=== PATIENT | female | born 1955 | race Caucasian/White ===

== ENCOUNTER 2018-07-20 12:23 | Observation (INO) | payer OTHER ==
--- OUTSIDE RECORDS SUMMARY | 2018-07-20 12:44 | XMS REPORT | Clinical Summary ---
:1955 Author Organization [facility] [employer] Address [address] [place] [address] Care Team Providers Name Role Phone Asked, No Pcp Primary Care Provider Unavailable Allergies Active Allergy Reactions Severity Noted Date Comments Codeine GI Intolerance 09/13/2014 Hydrocodone 09/13/2014 Other reaction(s): Nausea/Vomiting Morphine GI Intolerance 09/13/2014 Penicillins 05/19/2016 Medications Medication Sig Dispensed Refills Start Date End Date Status umeclidinium-krystina Inhale daily. 0 Active nterol (ANORO ELLIPTA) 62.5-25 mcg/actuation blister with device mometasone 2 sprays into 0 Active (NASONEX) 50 each nostril mcg/actuation daily. nasal spray albuterol Take 2.5 mg by 0 Active (ACCUNEB) 2.5 mg nebulization /3 mL (0.083 %) every 6 (six) nebulizer hours as needed solution for wheezing. montelukast Chew 5 mg 0 Active (SINGULAIR) 5 MG nightly. chewable tablet metoprolol Take 1.5 tablets 90 tablet 3 12/31/2017 Active succinate XL (75 mg total) by (TOPROL-XL) 50 mg mouth daily. 24 hr tabletIndications : Chronic Heart Failure furosemide Take 0.5 tablets 180 tablet 0 12/31/2017 Active (LASIX) 40 mg (20 mg total) by 9 tabletIndications mouth daily. : Edema promethazine Take by mouth 4 0 Active (PHENERGAN) 6.25 (four) times a mg/5 mL syrup day as needed for nausea or vomiting. levoFLOXacin Take 500 mg by 0 Active (LEVAQUIN) 500 MG mouth daily. tablet aspirin (ECOTRIN) Take 81 mg by 0 Active 81 MG enteric mouth daily. coated tablet topiramate Take 25 mg by 0 Active (TOPAMAX) 25 MG mouth 2 (two) tablet times a day. lisinopril Take 1 tablet (5 90 tablet 3 02/01/2018 Active (PRINIVIL,ZESTRIL mg total) by 9 ) 5 mg mouth daily. tabletIndications : Acute congestive heart failure, unspecified congestive heart failure type KLOR-CON 10 10 TAKE 1 TABLET (10 90 tablet 2 06/27/2018 Active mEq CR tablet MEQ TOTAL) BY MOUTH DAILY. valsartan Take 1 tablet (40 90 tablet 3 03/22/2017 Discontinued (DIOVAN) 40 MG mg total) by 8 tablet mouth daily. furosemide Take 1 tablet (40 90 tablet 3 03/22/2017 Discontinued (LASIX) 40 mg mg total) by 8 tablet mouth daily. potassium Take 1 tablet (10 90 tablet 3 03/22/2017 Discontinued chloride mEq total) by 9 (KLOR-CON) 10 MEQ mouth daily. CR tablet metoprolol TAKE 1 TABLET BY 90 tablet 3 04/05/2017 Discontinued succinate XL MOUTH EVERY DAY 8 (TOPROL-XL) 50 mg FOR 90 DAYS 24 hr tablet valsartan TAKE 1 TABLET BY 90 tablet 1 04/26/2017 Discontinued (DIOVAN) 80 MG MOUTH EVERY DAY 8 tablet Active Problems Problem Noted Date Cardiomyopathy 05/19/2016 Congestive heart failure 05/19/2016 Dyspnea on exertion 05/19/2016 Acute congestive heart failure 05/19/2016 Encounters Date Type Specialty Care Team Description 06/24/2018 Refill Cardiology Alejo Dempsey MD Med Refill 06/22/2018 Telephone Cardiology Faith Lima, RN Labs Only 02/01/2018 Office Visit Cardiology Alejo Dempsey MD Acute congestive heart failure, unspecified congestive heart failure type (Primary Dx) 12/31/2017 Hospital Encounter Radiology Waldo Winston Acute on chronic [place], [employer] combined systolic and diastolic congestive heart failure 12/31/2017 Office Visit Cardiology Waldo Winston Acute on chronic [employer], [employer] combined systolic and diastolic congestive heart failure (Primary Dx) 12/31/2017 Hospital Encounter Transplant Gaetano Cervantes Chronic combined systolic and diastolic congestive heart failure 12/29/2017 Orders Only Transplant Waldo Winston Chronic combined [employer], [employer] systolic and diastolic congestive heart failure (Primary Dx) after 07/19/2017 Family History Medical History Relation Name Comments Coronary artery disease Father Other Father "coronary arteriosclerosis" Hypertension Mother Hypertension Sister Relation Name Status Comments Father Mother Sister Social History Tobacco Use Types Packs/Day Years Used Date Former Smoker Smokeless Tobacco: Never Used Alcohol Use Drinks/Week oz/Week Comments Yes "occasional" Sex Assigned at Date Recorded Not on file Job Start Date Occupation Industry Not on file Not on file Not on file Travel History Travel Start Travel End No recent travel history available. Last Filed Vital Signs Vital Sign Reading Time Taken Blood Pressure 165/74 02/01/2018 2:32 PM CDT Pulse 87 02/01/2018 2:32 PM CDT Temperature 36.6 C (97.8 F) 12/31/2017 10:53 AM CDT Respiratory Rate 18 02/01/2018 2:32 PM CDT Oxygen Saturation 95% 02/01/2018 2:32 PM CDT Inhaled Oxygen Concentration - - Weight 70.3 kg (155 lb) 02/01/2018 2:32 PM CDT Height 162.6 cm (5' 4") 02/01/2018 2:32 PM CDT Body Mass Index 26.61 02/01/2018 2:32 PM CDT Plan of Treatment Health Maintenance Due Date Last Done Comments CERVICAL CANCER SCREENING 02/20/1976 BREAST CANCER SCREENING 2005 COLON CANCER SCREENING 2005 SHINGLES VACCINES (1 of 2) 2005 INFLUENZA VACCINE 01/19/2018 Procedures Procedure Name Priority Date/Time Associated Comments Diagnosis ECHOCARDIOGRAM 2D Routine 12/31/2017 3:10 Results for this COMPLETE W MMODE PM CDT procedure are in SPECTRAL COLOR DOPPLER the results (87204) section. XR CHEST 2 VW Routine 12/31/2017 2:04 Acute on chronic Results for this PM CDT combined systolic procedure are in and diastolic the results congestive heart section. failure ZZESTIMATED GFR STAT 12/31/2017 10:40 Results for this AM CDT procedure are in the results section. B NATRIURETIC PEPTIDE STAT 12/31/2017 10:40 Chronic combined Results for this AM CDT systolic and procedure are in diastolic the results congestive heart section. failure COMPREHENSIVE METABOLIC STAT 12/31/2017 10:40 Chronic combined Results for this PANEL AM CDT systolic and procedure are in diastolic the results congestive heart section. failure after 07/19/2017 Results Echocardiogram complete w contrast and 3D if needed (12/31/2017 3:10 PM CDT) Narrative Performed At [facility] Echocardiography Report Pat.Name:GAVIN GUZMAN Pat.ID:[id number] .Date: 12/31/2017 Refer.MD:ALEJO DEMPSEY MD Exam Time: 2:43:00 PMStudy Type:Routine Echo Height:64inWeight: 153lb BSA: 1.75 m2 DOBAge:1955,62Y Sex: FEMALEBP:146/72 HR:100 bpm Sonogrphr: Leticia Mahajan RDCS, RVS Pat. Stat.:[facility] TapeVol: [facility], ICD - 9: R06.02 Study Status:Final Echo Event ID:[id number] Order ID:[id number] Reason for Study:Dyspnea on Exertion, COPD, Combined Systolic and Diastolic Congestive Heart Failure History / Clinical:Heart Failulre unpsecified Procedures:2D Echo, Colorflow Doppler Race: SUMMARY: LV size is normal. LV EF is mild to moderately depressed. FINDINGS: LV: LV size is normal. LV EF is mild to moderately depressed. Overallwall motion is mildly hypokinetic. Septal motion is paradoxicalsecondary to LBBB or conduction abnormality. EstimatedEF is 40-44%. RV: RV size is normal. RV systolic function is lower limits of normal. LA: LA size is normal. RA: RA size is normal. AO: Aortic root diameter is normal. JIN: No pericardial effusion. AV: No structural AV abnormalities noted. MV: Mild thickening and calcification of mitral leaflets. Severe mitralannular calcification. PV: No structural PV abnormalities noted. A trace of pulmonic regurgitation. TV: No structural TV abnormalities noted. Mohr: Diastolic dysfunction Grade I (Mild): Impaired relaxation withnormal LV filling pressures. Other:Insufficient TR jet to estimate PA systolic pressure. MEASUREMENTS: 2D Parasternal Long [place] LA Ds3.5 cmLVPWd0.9 cm LVOT 1.9 cmAo An2.1 cm LVIDd4.4 cmIndex2.5 cm/m Ao Rtd 2.6 cm Index1.5 cm/m LVIDs3.7 cmLV Gwte592.6 g(87-129) LV%fs 15.9 % LVM Index 57.5 g/m2 IVSd 0.6 cmRWT0.4 LA Volume LA Vol36.3 txZqomq30.8 ml/m LA Sng Plane LA Area 15 cm2(8.8-23.4) LA Vol39.6 ml Index22.6 ml/m LA LngAx 4.5 cm EF Biplane YJU554.5 mlSV59.1 ml ESV 89.4 mlEF39.8 % DOPPLER MV For Flow/Valve Assess MV pkVel 132.9 cm/sMV Dec T 255 msec MV pkPG7.1 mmHgMV TVI26.9 cm MV Mean G2.6 mmHgMV Area P1/2t2.9 cm2(4-6) Signed 01/04/2018 10:44 AM Stewart Carrasco M.D. Procedure Note Interface, Radiology Results In - 01/04/2018 10:45 AM CDT [facility] Echocardiography Report Pat.Name: CASEGAVIN.ID: [id number] St.Date: 12/31/2017 Refer.MD: ALEJO DEMPSEY MD Exam Time: 2:43:00 PM Study Type:Routine Echo Height: 64in Weight: 153lb BSA: 1.75 m2 Age: 9 1955,62Y Sex: FEMALE BP: 146/72 HR: 100 bpm Sonogrphr: Leticia Mahajan RDCS, RVS Pat. Stat.:Outpatient Room: [address] Vol: [facility], ICD - 9: R06.02 Study Status:Final Echo Event ID:[id number] Order ID: [id number] Reason for Study:Dyspnea on Exertion, COPD, Combined Systolic and Diastolic Congestive Heart Failure History / Clinical:Heart Failulre unpsecified Procedures:2D Echo, Colorflow Doppler Race: SUMMARY: LV size is normal. LV EF is mild to moderately depressed. FINDINGS: LV: LV size is normal. LV EF is mild to moderately depressed. Overall wall motion is mildly hypokinetic. Septal motion is paradoxical secondary to LBBB or conduction abnormality. Estimated EF is 40-44%. RV: RV size is normal. RV systolic function is lower limits of normal. LA: LA size is normal. RA: RA size is normal. AO: Aortic root diameter is normal. JIN: No pericardial effusion. AV: No structural AV abnormalities noted. MV: Mild thickening and calcification of mitral leaflets. Severe mitral annular calcification. PV: No structural PV abnormalities noted. A trace of pulmonic regurgitation. TV: No structural TV abnormalities noted. Mohr: Diastolic dysfunction Grade I (Mild): Impaired relaxation with normal LV filling pressures. Other: Insufficient TR jet to estimate PA systolic pressure. MEASUREMENTS: 2D Parasternal Long [place] LA Ds 3.5 cm LVPWd 0.9 cm LVOT 1.9 cm Ao An 2.1 cm LVIDd 4.4 cm Index 2.5 cm/m Ao Rtd 2.6 cm Index 1.5 cm/m LVIDs 3.7 cm LV Mass 100.6 g (87-129) LV%fs 15.9 % LVM Index 57.5 g/m2 IVSd 0.6 cm RWT 0.4 LA Volume LA Vol 36.3 ml Index 20.8 ml/m LA Sng Plane LA Area 15 cm2 (8.8-23.4) LA Vol 39.6 ml Index 22.6 ml/m LA LngAx 4.5 cm EF Biplane EDV 148.5 ml SV 59.1 ml ESV 89.4 ml EF 39.8 % DOPPLER MV For Flow/Valve Assess MV pkVel 132.9 cm/s MV Dec T 255 msec MV pkPG 7.1 mmHg MV TVI 26.9 cm MV Mean G 2.6 mmHg MV Area P1/2t 2.9 cm2 (4-6) Signed 01/04/2018 10:44 AM Stewart Carrasco M.D. Performing Organization Address City/State/Zipcode Phone Number [facility] [phone] [place] [address] XR Chest 2 Vw (12/31/2017 2:04 PM CDT) Narrative Performed At EXAMINATION:XR CHEST 2 VW [facility]IANT CLINICAL HISTORY:I50.43 Acute on chronic combined systolic (congestive) and diastolic (congestive) heart failure, Cardiomyopathy COMPARISON:None. IMPRESSION: 1.Lungs are clear. 2.Mediastinal contours and cardiac silhouette are unremarkable. 3.No acute osseous abnormality. 4.Right chest surgical clips. [id number] Procedure Note Interface, Radiology Results Incoming - 12/31/2017 2:13 PM CDT EXAMINATION: XR CHEST 2 VW CLINICAL HISTORY: I50.43 Acute on chronic combined systolic (congestive) and diastolic (congestive) heart failure, Cardiomyopathy COMPARISON: None. IMPRESSION: 1. Lungs are clear. 2. Mediastinal contours and cardiac silhouette are unremarkable. 3. No acute osseous abnormality. 4. Right chest surgical clips. [id number] Performing Organization Address [facility]/Zipcode Phone Number [facility] [address] [place] [address] Estimated GFR (12/31/2017 10:40 AM CDT) GFR Non Af Amer >90 mL/min/1.73 m2 [facility] DEPARTMENT OF PATHOLOGY AND GENOMIC MEDICINE GFR Af Amer >90 mL/min/1.73 m2 [facility] DEPARTMENT OF Comment: PATHOLOGY AND GENOMIC Chronic kidney disease: <60 mL/min/1.73m2 MEDICINE Kidney failure: <15 mL/min/1.73m2 The estimated GFR is calculated from the IDMS-traceable Modification of Diet in Renal Disease Equation. The accuracy of the calculation is poor when the creatinine is normal. Calculated values >90 mL/min/1.73m2 are not reported. This equation has not been validated in children (<18 years), women, the elderly (>70 years), or ethnic groups other than Caucasians and Americans. Specimen Plasma specimen Performing Organization Address City/[facility] Phone Number [facility] DEPARTMENT OF PATHOLOGY AND [address] [place] [phone] [facility] B natriuretic peptide (12/31/2017 10:40 AM CDT) BNP 24 0 - 100 pg/mL [facility] OF PATHOLOGY AND GENOMIC MEDICINE Specimen Blood Performing Organization Address [facility] Mex[facility] Phone Number [facility] DEPARTMENT OF PATHOLOGY AND [address] [place] [phone] [facility] Comprehensive metabolic panel (12/31/2017 10:40 AM CDT) Sodium 141 135 - 148 mEq/L [facility]PART[facility] OF PATHOLOGY AND GENOMIC MEDICINE Potassium 4.2 3.5 - 5.0 mEq/L [facility] OF PATHOLOGY AND GENOMIC MEDICINE Chloride 102 98 - 112 mEq/L [facility] OF PATHOLOGY AND GENOMIC MEDICINE CO2 27 24 - 31 mEq/L [facility] OF PATHOLOGY AND GENOMIC MEDICINE Anion gap 12@ANIO 7 - 15 mEq/L [facility] DEPART[facility] OF PATHOLOGY AND GENOMIC MEDICINE BUN 11 8 - 23 mg/dL [facility] DEPART[facility] OF PATHOLOGY AND GENOMIC MEDICINE Creatinine 0.6 0.5 - 0.9 mg/dL [facility] OF PATHOLOGY AND GENOMIC MEDICINE Glucose 89 65 - 99 mg/dL [facility]PART[facility] OF PATHOLOGY AND GENOMIC MEDICINE Calcium 9.4 8.8 - 10.2 mg/dL [facility] DEPARTMENT OF PATHOLOGY AND GENOMIC MEDICINE Protein 7.1 6.3 - 8.3 g/dL [facility] DEPARTMENT OF Comment: PATHOLOGY AND GENOMIC Maidens 4.6-7.0 g/dL MEDICINE 1 week 4.4-7.6 g/dL 7 months-1year5.1-7.3 g/dL 1-2 years5.6-7.5 g/dL >3 years6.0-8.0 g/dL 18-150 6.3-8.3 g/dL Albumin 3.7 3.5 - 5.0 g/dL [facility] OF PATHOLOGY AND GENOMIC MEDICINE A/G ratio 1.1 0.7 - 3.8 [facility]PART[facility] OF PATHOLOGY AND GENOMIC MEDICINE Alkaline phosphatase 98 35 - 104 U/L [facility] DEPARTMENT OF PATHOLOGY AND GENOMIC MEDICINE AST 19 10 - 35 U/L [facility] DEPARTMENT OF PATHOLOGY AND GENOMIC MEDICINE ALT 23 5 - 50 U/L [facility] OF PATHOLOGY AND GENOMIC MEDICINE Total bilirubin 0.3 0.0 - 1.2 mg/dL [facility] DEPARTMENT OF PATHOLOGY AND GENOMIC MEDICINE Specimen Plasma specimen Performing Organization Address City/State/[facility] Mex[facility]ocode Phone Number [facility] DEPARTMENT OF PATHOLOGY AND [address] [place] [address] [facility] after 07/19/2017 Insurance Payer Benefit Plan / Group Subscriber ID Type Phone Address [employer] AET[employer] PPO OPEN CHOICE xxxxxxxxx PPO Advance Directives Patient has advance care planning documents on file. For more information, please contact:José Miguel Marinelli[address] [place] [id number]
--- OUTSIDE RECORDS SUMMARY | 2018-07-20 12:45 | XMS REPORT | Continuity of Care Document ---
:1955 Author Organization Interface Problems Problem Status Onset Classification Date Comments Source Date Reported ACUTE COMBINED Active 04/27/20 [facility] SYSTOLIC/DISTOL 18 [place] IC HEART F HEART FAILURE, Active 04/27/20 [facility] COPD 18 [place] Abdominal pain, Active 06/29/19 Finding 06/29/[address] [facility] left lower 18 [facility] [place] Back pain Active 06/29/19 Finding 06/29/[address] [facility] [place] COPD with acute Active 06/29/19 Finding 06/29/[address] [facility] bronchitis 18 [facility] [place] Right lower Active 06/29/19 Finding 06/29/[address] [facility] quadrant 18 [facility] abdominal [place] tenderness Left lower Active 06/29/19 Finding 06/29/[address] [facility] quadrant pain 18 [facility] [place] Acute Active 06/29/19 Finding 06/29/[address] [facility] bronchitis with 18 [facility] chronic [place] obstructive pulmonary disease Cough Active 12/05/19 Finding 06/29/[address] [facility] 16 [facility] [place] Vaginal vault Active 09/18/19 Finding 06/29/[address] [facility] prolapse 15 [facility] [place] Cystocele Active 09/18/19 Finding 06/29/[address] [facility] [place] Rectocele Active 09/18/19 Finding 06/29/[address] [facility] [place] Dysphagia Inactive Finding 06/29/[address] [facility] [place] Abnormal weight Inactive Finding 06/29/[address] [facility] loss [facility] [place] COPD Active Finding 06/29/[address] [facility] exacerbation [facility] [place] ACUTE COMBINED Active [facility] SYSTOLIC AND [place] DIASTOLIC (C ACUTE SYSTOLIC Active [facility] (CONGESTIVE) [place] HEART FAILUR Medications Medication Details Route Status Patient Ordering Order Source Instructions Provider Date Acetaminophen EVERY [address] [facility] HOURS 018 [facility] NEEDED PRN [place] For Headache Or Fever Albuterol FOUR TIMES Active [facility] Sulfate DAILY [facility]18 [facility] [place] Aspirin DAILY Active [facility] [place] Budesonide/Formo TWICE DAILY Active [facility] terol Fumarate [facility]18 [facility] [place] Potassium DAILY PRN [facility] Chloride For taken [facility]18 [facility] with lasix [place] Valsartan DAILY Active [facility] [place] Furosemide NEEDED Active [facility] PRN For 016 [facility] edema [place] Lisinopril DAILY Active [facility] [place] Metoprolol DAILY Active [facility] Succinate 016 [facility] [place] Losartan DAILY Active [facility] Potassium 013 [facility] [place] Allergies, Adverse Reactions, Alerts Substance Category Reaction Severity Reaction Status Date Comments Source type Reported Penicillins Itching/H Severe Allergy to Active [facility]/Rash Substance 5 [facility] [place] codeine VOMITING Allergy to Active [facility] Substance 5 [facility] [place] hydrocodone Nausea/Vo Allergy to Active [facility] m[facility] Substance 5 [facility] [place] morphine VOMITING Allergy to Active [facility] Substance 5 [facility] [place] Immunizations Immunization Date Given Site Status Last Comments Source Updated Pneumovax 05/04/[address] 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 Lungs: Hyperinflated lungs. No focal consolidation, effusion, or pneumothorax. Mediastinum: The cardiac silhouette is mildly enlarged. Midline trachea. Bones and soft tissues: No acute abnormalities. IMPRESSION: No acute cardiopulmonary abnormalities. SL: [id number] Laboratory Sodium Level 139 mEq/L 135 - 145 06/[address] [facility] [address] Studies /2018 [facility] [place] Laboratory Potassium 4.3 mEq/L 3.6 - 5.0 06/[address] [facility] [address] Studies Level /2018 [facility] [place] Laboratory Magnesium 2.0 mg/dL 1.8 - 2.5 06/[address] [facility] [address] Studies Level /2017 [facility] [place] Laboratory Glucose 95 mg/dL 65 - 120 06/29 [facility]3]. Studies Level /2017 [facility] [place] Laboratory Estimat null 90 06/29 [facility]3]. Studies Glomerular /2017 [facility] Filtration [place] Rate Laboratory Creatinine 0.58 mg/dL 0.44 - 06/29 [facility]3]. Studies 1.00 [facility] [place] Laboratory Chloride 106 mEq/L 101 - 111 06/29 [facility]3]. Studies Level /2017 [facility] [place] Laboratory Carbon 28 mEq/L 21 - 31 06/29 [facility]3]. Studies Dioxide /2017 [facility] Level [place] Laboratory Calcium 9.0 mg/dL 8.5 - 10.5 06/29 [facility]3]. Studies Level /2018 [facility] [place] Laboratory Blood Urea 8 mg/dL 6 - 20 06/29 [facility]3]. Studies Nitrogen /2017 [facility] [place] Laboratory White Blood 4.1 K/uL 4.3 - 10.9 06/29 [facility]3]. Studies Count /2017 [facility] [place] Laboratory Red Cell 13.3 % 12.1 - 06/29 [facility]3]. Studies Distribution 15.2 /2017 [facility] Width [place] Laboratory Red Blood 4.62 M/uL 3.86 - 06/29 [facility]3]. Studies Count 4.86 /2017 [facility] [place] Laboratory Platelet 157 K/uL 152 - 406 06/29 [facility]3]. Studies Count /2017 [facility] [place] Laboratory Neutrophils 39.9 % 41.7 - 06/[address] [facility] [address] Studies % 73.7 /2017 [facility] [place] Laboratory Monocytes % 9.6 % 3.3 - 12.3 06/[address] [facility] [address] Studies /2018 [facility] [place] Laboratory Mean 10.3 fL 7.6 - 11.3 06/[address] [facility] [address] Studies Platelet /2018 [facility] Volume [place] Laboratory Mean 93.2 fL 80 - 100 06/29 St[facility] Studies Corpuscular /2017 [facility] Volume [place] Laboratory Mean 32.6 g/dL 32.0 - 06/29 St[facility] Studies Corpuscular 36.0 [facility] Hemoglobin [place] Concent Laboratory Mean 30.4 pg 27.0 - 06/29 St[facility] Studies Corpuscular 35.0 [facility] Hemoglobin [place] Laboratory Lymphocytes 46.5 % 15.3 - 06/[address] [facility] [address] Studies % 44.8 /2017 [facility] [place] Laboratory Hemoglobin 14.0 g/dL 12.0 - 06/[address] [facility] [address] Studies 15.0 [facility] [place] Laboratory Hematocrit 43.0 % 36.0 - 06/[address] [facility] [address] Studies 45.0 [facility] [place] Laboratory Eosinophils 3.2 % 0 - 4.4 06/[address] [facility] [address] Studies % /2017 [facility] [place] Laboratory Basophils % 0.8 % 0 - 1.3 06/[address] [facility] [address] Studies [facility] [place] Laboratory Absolute 1.6 K/uL 1.8 - 8.0 06/[address] [facility] [address] Studies Neutrophil [facility] [place] Laboratory Absolute 0.4 K/uL 0.1 - 1.3 06/[address] [facility] [address] Studies Monocytes [facility] - (CBC) [place] Laboratory Absolute 1.9 K/uL 0.7 - 4.9 06/[address] [facility] [address] Studies Lymphocytes [facility] - (CBC) [place] Laboratory Absolute 0.1 K/uL 0 - 0.5 06/[address] [facility] [address] Studies Eosinophils [facility] - (CBC) [place] Laboratory Absolute 0.0 K/uL 0 - 0.5 06/[address] [facility] [address] Studies Basophils [facility] - (CBC) [place] Laboratory Urine pH 5.5 06/[address] [facility] [address] Studies [facility] [place] Laboratory Urine WBC Urine WBC 06/[address] [facility] [address] Studies [facility] [place] Laboratory Urine 0.2 mg/dL 06/[address] [facility] [address] Studies Urobilinogen /2017 [facility] [place] Laboratory Urine Total Urine 06/[address] [facility] [address] Studies Protein Total /2017 [facility] Protein [place] Laboratory Urine Urine 06/28 [facility]3]. Studies Squamous Squamous /2017 [facility] Epithelial Epithelial [place] Cells Cells Laboratory Urine 1.025 06/28 [facility]3]. Studies Specific /2017 [facility] [place] Laboratory Urine RBC null 06/28 St. Studies /2017 [facility] [place] Laboratory Urine Urine 06/28 [facility] Studies Nitrite Nitrite /2017 [facility] [place] Laboratory Urine Mucus Urine 06/28 [facility]3]. Studies Mucus /2017 [facility] [place] Laboratory Urine Urine 06/28 [facility]3]. Studies Leukocyte Leukocyte /2017 [facility] Esterase Esterase [place] Laboratory Urine Urine 06/28 [facility]3]. Studies Ketones Ketones /2017 [facility] [place] Laboratory Urine Urine 06/28 [facility] Studies Glucose Glucose /2017 [facility] [place] Laboratory Urine Urine 06/28 [facility] Studies Culture Culture /2017 [facility] Reflexed Reflexed [place] Laboratory Urine Color Urine 06/28 [facility] Studies Color /2017 [facility] [place] Laboratory Urine Blood Urine 06/28 [facility]3]. Studies Blood /2017 [facility] [place] Laboratory Urine Urine 06/28 [facility] Studies Bilirubin Bilirubin /2017 [facility] [place] Laboratory Urine null 06/28 [facility]3]. Studies Bacteria /2017 [facility] [place] Laboratory Urine Urine 06/28 [facility] Studies Appearance Appearance /2017 [facility] [place] Laboratory Vitamin B12 507 pg/ml 180 - 914 06/28 [facility] Studies Level /2017 [facility] [place] Laboratory Thyroid 1.03 0.34 - 06/28 [facility] Studies Stimulating uIU/mL 5.60 [facility] Hormone [place] (TSH) Laboratory Prothrombin 11.4 9.5 - 12.5 06/28 [facility] Studies Time SECONDS /2017 [facility] [place] Laboratory INR 0.97 06/28 [facility] Studies Internationa /2017 [facility] l Normalized [place] Ratio Laboratory Activated 21.9 24.3 - 06/28 [facility] Studies Partial SECONDS 36.9 [facility] Thromboplast [place] Time Laboratory Total 0.6 mg/dL 0.3 - 1.2 06/28 [facility] Studies Bilirubin /2017 [facility] [place] Laboratory Serum Total 6.8 g/dL 6.0 - 8.3 06/[address] [facility] [address] Studies Protein /2018 [facility] [place] Laboratory Phosphorus 3.3 mg/dL 2.5 - 4.3 06/[address] [facility] [address] Studies Level /2017 [facility] [place] Laboratory Globulin 2.8 g/dL 2.3 - 3.5 06/[address] [facility] [address] Studies /2017 [facility] [place] Laboratory Direct 0.1 mg/dL 0 - 0.2 06/28 [facility]3]. Studies Bilirubin /2017 [facility] [place] Laboratory Aspartate 22 IU/L 10 - 42 06/28 [facility]3]. Studies Amino Transf /2017 [facility] - (AST/SGOT) [place] Laboratory Alkaline 73 IU/L 42 - 121 06/28 [facility]3]. Studies Phosphatase /2017 [facility] [place] Laboratory Albumin/Glob 1.4 1.1 - 1.8 06/28 [facility]3]. Studies ulin Ratio /2017 [facility] [place] Laboratory Albumin 4.0 g/dL 3.2 - 5.5 06/28 [facility]3]. Studies [facility] [place] [facility] Alanine 20 IU/L 10 - 60 06/28 [facility]3]. Studies Aminotransfe /2017 [facility] - rase [place] (ALT/SGPT) Vital Signs Vital Sign Value Date Comments Source Temperature Oral (F) 98.9 F 06/29/[address] [facility] [address] Yashira Ayersuday Heart Rate 87 06/29/[address] [facility] [address] Yashira [place] Respitory Rate 18 06/29/[address] [facility] [address] Yashira [place] Systolic (mm Hg) 114 06/29/[address] [facility] [address] Yashira [place] Diastolic (mm Hg) 59 06/29/[address] [facility] [address] Yashira [place]ud[place] Weight 150.40 06/29/[address] [facility] [address] Yashira Ayers Height 64 06/28/[address] [facility] [address] Yashira Ayerst Encounters Location Location Encounter Encounter Reason Attending ADM DC Status Source Details Type Number For Provider Date Date Visit [facility]3]Concepción Discharged [id number] 06/28 06/[address] [facility] [address] [facility] Inpatient /2017 [facility] [place] [facility] [id number] MARIA ANTONIA 03/16 Active [facility] [place] Outpatient [id number] MARIA ANTONIA 04/13 Active [facility] [place] Procedures Procedure Code Date Perfomer Comments Source Anaerobic Blood [id number] 06/28/[address] [facility] [address] Ac - Culture [place] Aerobic Blood [id number] 06/28/[address] [facility] [address] Ac - Culture [place] Gram Stain [id number] 06/28/[address] [facility] [address] Yashira Wiggins [place] Count [id number] 06/28/[address] [facility] [address] [facility] - [place] [id number] 06/28/[address] [facility] [address] Yashira Wiggins Culture & [id number] 06/28/[address] [facility] [address] Ac - Sensitivity [place] Abdomen & Pelvis [id number] 06/28/[address] [facility] [address] Ac - W Contrast [place] Chest Pa And Lat [id number] 06/28/[address] [facility] [address] Ac - (2 Views) Feliciano
[2018-07-20] MEDS ORDERED: ONDANSETRON 4 MG (ODT) TAB PO PRN (14:00)
[2018-07-20] MEDS ORDERED: DIPHENHYDRAMINE 25 MG TAB/CAP PO PRN (14:00)
[2018-07-20] MEDS ORDERED: ACETAMINOPHEN 325 MG TABLET PO PRN (14:00)
[2018-07-20] MEDS ORDERED: LOPERAMIDE HCL 2 MG CAPSULE PO PRN (14:00)
[2018-07-20] MEDS ORDERED: ONDANSETRON 4 MG/2 ML VIAL IV PRN (14:00)
[2018-07-20] MEDS ORDERED: POLYETHYL GLY 3350 17 GM/DOSE PO PRN (14:00)
[2018-07-20] MEDS ORDERED: NACHLORIDE 0.45% 1,000 ML IV SCH (14:00)
[2018-07-20 14:39] LABS: Hematocrit 44.1 % (36.0-45.0); Lymphocytes % 39.6 % (15.3-44.8); MPV 9.5 fL (7.6-11.3); RBC Red Blood Cell Count 4.72 M/uL (3.86-4.86)
[2018-07-20 14:40] LABS: Absolute Lymphocytes (CBC) 1.7 K/uL (0.7-4.9); Absolute Monocytes 0.4 K/uL (0.1-1.3); Absolute Neutrophil 2.2 K/uL (1.8-8.0); Basophils % 0.7 % (0-1.3); Eosinophils % 1.9 % (0-4.4); Monocytes % 8.3 % (3.3-12.3)
[2018-07-20 14:43] LABS: Protime INR 0.92
[2018-07-20 14:47] VITALS: BMI 24.6
[2018-07-20] MEDS ORDERED: INFLUENZA VACCINE (for 3y+) 0.5 ML DOSE IMVAC ONE (15:00)
[2018-07-20] MEDS ORDERED: PNEUMOCOCCAL VACCINE 0.5 ML IMVAC ONE (15:00)
[2018-07-20 15:17] LABS: ALT/SGPT 22 U/L (12-78); AST/SGOT 15 U/L (15-37); Albumin 3.4 g/dL (3.4-5.0); Alkaline Phosphatase 104 U/L (45-117); BUN Blood Urea Nitrogen 12 mg/dL (7-18); Bicarbonate 32 mmol/L (21-32); Bilirubin Direct < 0.1 mg/dL (0-0.2); Bilirubin Total 0.3 mg/dL (0.2-1.0); Glucose Level 99 mg/dL (74-106); Magnesium 2.2 mg/dL (1.8-2.4); Phosphorus 3.3 mg/dL (2.5-4.9); Protein, Total 6.9 g/dL (6.4-8.2); Sodium Level 143 mmol/L (136-145)
--- NOTE | 2018-07-20 15:48 | EKG ---
Test Date: 2018-07-20 Test Time: 15:10:07 [employer]: PILY MEASUREMENT RESULTS: Intervals: Rate: 70 DE: 166 QRSD: 86 QT: 400 QTc: 432 [place]: P: 63 DE: 166 QRS: 69 T: 82 INTERPRETIVE STATEMENTS: Normal sinus rhythm Normal ECG Compared to ECG 06/28/2017 12:46:07 No significant changes Electronically Signed On 07-20-18 15:48:16 [employer]ATION TE[employer] by Anupam Martines
--- NOTE | 2018-07-20 19:09 | RAD REPORT ---
EXAM DESCRIPTION: Jocelynn Lynch (2 Views)07/20/2018 6:36 pm CLINICAL HISTORY: Cough COMPARISON: June 2017 FINDINGS: The lungs appear clear of acute infiltrate. The heart is normal size IMPRESSION: No acute abnormalities displayed
--- NOTE | 2018-07-20 19:52 | RAD REPORT ---
EXAM DESCRIPTION: MRI - Lumbar Spine Wo Con - 07/20/2018 7:34 pm CLINICAL HISTORY: Ataxia and numbness COMPARISON: June 2017 TECHNIQUE: Sagittal T1, T2 and STIR weighted sequences were obtained. Axial T1 and T2 sequences were obtained through the lumbar disc levels. FINDINGS: Mild spondylosis L1-2 and L2-3 Disc bulge and osteophytes L3-4. Mild ligamentum flavum and facet hypertrophy. Mild narrowing of the neural foramina bilaterally. Thecal sac is minimally narrowed Disc bulge with annular fissure is present at L4-5. Ligamentum flavum and facet hypertrophy is seen. Thecal sac measures 10 millimeters. Mild to moderate narrowing of the right and mild narrowing left n eural foramina. Lateral recesses are narrowed Small right posterolateral disc herniation L5-S1 narrows the right neural foramina. Facet hypertrophy is present. Small Tarlov cyst is present within the sacral spinal canal IMPRESSION: Small right posterolateral disc herniation L5-S1 Spondylosis L3-4 resulting in mild bilateral foraminal stenosis Spondylosis L4-5 resulting in mild to moderate right and mild left foraminal stenosis
--- NOTE | 2018-07-20 20:33 | RAD REPORT ---
EXAM DESCRIPTION: MRI - Soft Tissue Neck W/Wo - 07/20/2018 8:13 pm CLINICAL HISTORY: Neck pain and dysphagia COMPARISON: None. TECHNIQUE: Axial, sagittal and coronal magnetic resonance imaging of the neck was obtained. Cc 14 cc MultiHance administered intravenously FINDINGS: The pharynx, tongue base, larynx and subglottic trachea appear unremarkable. The parotid, submandibular and thyroid glands appear unremarkable. No lymphadenopathy is seen. No significant abnormal enhancement is visualized IMPRESSION: Unremarkable exam
--- NOTE | 2018-07-20 20:35 | RAD REPORT ---
EXAM DESCRIPTION: MRI - Brain W/Wo Cont - 07/20/2018 8:12 pm CLINICAL HISTORY: Ataxia and numbness COMPARISON: 2016 MRI TECHNIQUE: Axial, sagittal, and coronal magnetic images of the brain were obtained. 14 cc MultiHance administered intravenously FINDINGS: [id number] areas of increased signal are present within periventricular, deep and kraft bcortical white matter mildly progressed from the prior exam. The ventricles are normal in caliber. Diffusion-weighted sequences do not demonstrate evidence of an acute infarction. No abnormal enhancement within the brain is seen. An extra-axial fluid collection is not noted. Fluid within the sinuses/mastoids is not seen IMPRESSION: Mild to moderate areas of increased signal within periventricular, deep and subcortical white matter mildly progressed from the prior exam may be secondary to ischemic changes secondary to small vessel disease. A demyelinating process is another consideration but is probably less likely
[2018-07-21 01:06] VITALS: BP 135/63; TEMP 97.9
[2018-07-21 04:39] LABS: Absolute Lymphocytes (CBC) 2.2 K/uL (0.7-4.9); Absolute Monocytes 0.5 K/uL (0.1-1.3); Absolute Neutrophil 2.5 K/uL (1.8-8.0); Basophils % 0.7 % (0-1.3); Eosinophils % 2.2 % (0-4.4); Hematocrit 39.8 % (36.0-45.0); Lymphocytes % 40.6 % (15.3-44.8); MPV 9.5 fL (7.6-11.3); Monocytes % 9.2 % (3.3-12.3); RBC Red Blood Cell Count 4.29 M/uL (3.86-4.86)
[2018-07-21 05:02] LABS: BUN Blood Urea Nitrogen 13 mg/dL (7-18); Bicarbonate 29 mmol/L (21-32); Glucose Level 94 mg/dL (74-106); Potassium 3.9 mmol/L (3.5-5.1); Sodium Level 141 mmol/L (136-145)
[2018-07-21 08:38] VITALS: O2SAT 95
[2018-07-21] MEDS ORDERED: ENOXAPARIN 40 MG/0.4 ML SQ SCH (09:00)
--- NOTE | 2018-07-21 18:01 | P.DS ---
Admission Date: 07/20/18 Discharge Date: 07/21/18 Disposition: ROUTINE DISCHARGE Discharge Condition: FAIR Brief History of Present Illness: GAVIN HAS SO MANY CHRONIC SYMPOTMS LIKE DIFFUSE SEVERE HEADACHE, UNSTEADY GAIT, ENT DOCTOR WANTED HER TO CHECK FOR THROAT CANCER, SHE HAS DYSPHAGIA FOR THAT SHE GOES TO GI MD. I CHECKED MRI BRAIN WITHOUT AND WITH CONRAST, SOFT TISSUE NECK AND LOWER SPINE. I DID NOT FIND ANY MAJOR FINDINGS. I ASKED IF SHE IS DERPESSED AND SHE SAYS NO. I WILL REFER HER TO [facility] SHE IS NOT HAPPY WITH LOCAL NEUROLOGISTS. Vital Signs/Physical Exam: Temp Pulse Resp BP Pulse Ox 97.9 F 77 17 135/63 97 07/21/18 00:00 07/21/18 00:00 07/21/18 00:00 07/21/18 00:00 07/21/18 00:00 Laboratory Data at Discharge: WBC 5.3 K/uL (4.3-10.9) D 07/21/18 03:37 Hgb 13.2 g/dL (12.0-15.0) 07/21/18 03:37 Hct 39.8 % (36.0-45.0) 07/21/18 03:37 Plt Count 164 K/uL (152-406) 07/21/18 03:37 PT 10.9 SECONDS (9.5-12.5) 07/20/18 14:24 INR 0.92 07/20/18 14:24 APTT 28.1 SECONDS (24.3-36.9) 07/20/18 14:24 Sodium 141 mmol/L (136-145) 07/21/18 03:37 Potassium 3.9 mmol/L (3.5-5.1) 07/21/18 03:37 BUN 13 mg/dL (7-18) 07/21/18 03:37 Creatinine 0.55 mg/dL (0.55-1.3) 07/21/18 03:37 Glucose 94 mg/dL (74-106) 07/21/18 03:37 Phosphorus 3.3 mg/dL (2.5-4.9) 07/20/18 14:24 Magnesium 2.2 mg/dL (1.8-2.4) 07/20/18 14:24 Total Bilirubin 0.3 mg/dL (0.2-1.0) 07/20/18 14:24 AST 15 U/L (15-37) 07/20/18 14:24 ALT 22 U/L (12-78) 07/20/18 14:24 Alkaline Phosphatase 104 U/L (45-117) 07/20/18 14:24 Home Medications: Acetaminophen with Codeine [Acetaminophen-Cod #3 Tablet] 1 each PO Q4HP PRN Albuterol Sulfate [Proair Hfa] 2 puff IH QID 07/20/18 Bumetanide 0.5 mg PO DAILY 07/20/18 Esomeprazole Magnesium 40 mg PO DAILY 07/20/18 Ipratropium [Atrovent 0.03% (21MCG)/[place] Nasal] 2 sprays NS QID 07/20/18 Metoprolol Succinate 1.5 tab PO DAILY 07/20/18 Umeclidinium Brm/Vilanterol Tr [Anoro Ellipta 62.5-25 Mcg INH] 1 each IH DAILY 07/20/18 Diet: Regular Followup: Adam Moses MD [Primary Care Provider] -
== END 2018-07-21 09:50 | disposition home or self-care (01) ==
LOC: 4TH 12:41
PROVIDERS: ADMIT Internal Medicine; ATTEND Internal Medicine
DX: R26.81 Unsteadiness on feet (principal); R13.10 Dysphagia, unspecified; R51 Headache; I10 Essential (primary) hypertension; J44.9 Chronic obstructive pulmonary disease, unspecified; I42.0 Dilated cardiomyopathy; Z88.0 Allergy status to penicillin; Z86.73 Personal history of transient ischemic attack (TIA), and cerebral infarction without residual deficits; Z23 Encounter for immunization
CPT/HCPCS: 36415; 70543; 70553; 71046; 72148; 80048; 80076; 82306; 82607; 83735; 84100; 84443; 85025; 85610; 85730; 90670; 93005; A9577; G0008; G0009; G0378; J1650; Q2035

== ENCOUNTER 2021-09-16 09:00 | Day surgery (SDC) | payer OTHER ==
[2021-09-16] MEDS ORDERED: Ringers Lactate 1,000 ML IV ONE (09:23)
[2021-09-16] MEDS ORDERED: ALBUTEROL 2.5 MG/3 ML NEB SOL ONE (09:56)
[2021-09-16] MEDS ORDERED: SCOPOLAMINE HYDROBROMIDE PATCH TD ONE (09:56)
[2021-09-16] MEDS ORDERED: LIDOCAINE 1% MPF 5 ML VIAL ONE (10:26)
[2021-09-16] MEDS ORDERED: propofoL 200 MG/20 ML VIAL IV ONE (10:26)
[2021-09-16 12:33] VITALS: TEMP 98.3
[2021-09-16 12:36] VITALS: BP 137/60; O2SAT 94
--- NOTE | 2021-09-17 01:37 | OP ---
Surgeon: Frank Mayorga MD Procedure Performed: Esophagogastroduodenoscopy. Indication For Procedure: Suspected weight loss, dysphagia, GERD, history of Pascual's. Plan For Anesthesia: Monitored anesthesia care. Complexity: High due to the patient's heart failure as well as COPD. Technique: After obtaining informed consent from the patient and explaining risks and complications, the patient was placed in the left lateral position and sedation was given. The scope was then advanced through the mouth and carefully guided up to the second portion of the duodenum. After the completion of procedure, scope and equipment withdrawn and procedure terminated in a safe manner. Findings: Esophagus: No gross lesion seen in the entire esophagus. Actually, there was no definitive stenosis; however, part in the distal esophagus was suspicious for mild narrowing versus spasm. Due to this finding, guidewire- assisted serial dilation was done to see if there is any improvement. The dilation was done with Savary from 12.8 to 14 mm. A small hiatal hernia was seen in the distal esophagus. The Z-line was irregular; however, no definitive evidence of Pascual's. Biopsies were taken. Stomach: Mild patchy erythema seen in the body and antrum. Biopsies taken. Duodenum: The bulb and second portion appeared normal. Complications: None. Estimated blood loss: Minimal Tolerance To Anesthesia: Excellent. Postoperative Diagnoses: Gastritis; hiatal hernia; irregular Z-line; mild esophageal stenosis, status post dilation. Plan: Continue current management. If the patient still has persistent swallowing issues, may need further evaluation with imaging. US/MODL Voice ID: [id number] Report ID: [id number] HUGO
== END 2021-09-16 11:27 | disposition home or self-care (01) ==
LOC: OR 09:00
PROVIDERS: ATTEND Internal Medicine Gastroenterology
PROC: 0DB68ZX Excision of Stomach, Via Natural or Artificial Opening Endoscopic, Diagnostic (ICD-10-PCS; 2021-09-16)
PROC: 0D738ZZ Dilation of Lower Esophagus, Via Natural or Artificial Opening Endoscopic (ICD-10-PCS; principal; 2021-09-16 10:00)
PROC: 0DB58ZX Excision of Esophagus, Via Natural or Artificial Opening Endoscopic, Diagnostic (ICD-10-PCS; 2021-09-16 10:00)
DX: R13.10 Dysphagia, unspecified (principal); K21.9 Gastro-esophageal reflux disease without esophagitis; J44.9 Chronic obstructive pulmonary disease, unspecified; I50.9 Heart failure, unspecified; K29.50 Unspecified chronic gastritis without bleeding; R63.4 Abnormal weight loss; I10 Essential (primary) hypertension; Z85.3 Personal history of malignant neoplasm of breast; F17.210 Nicotine dependence, cigarettes, uncomplicated
CPT/HCPCS: 88312; 88313; 88305; 43248; 43239; J2704; J7120; C1769

== ENCOUNTER → 2023-09-05 | Emergency (ER) | payer MEDICARE ==
[~2023-09-05] MED LIST: FUROSEMIDE 40 MG/4 ML VIAL ONE
[2023-09-05 14:37] LABS: Absolute Eosinophils 0.1 K/uL (0-0.5); Absolute Lymphocytes (CBC) 0.9 K/uL (0.7-4.9); Absolute Monocytes 0.8 K/uL (0.1-1.3); Absolute Neutrophil 4.2 K/uL (1.8-8.0); Basophils % 0.4 % (0-1.3); Eosinophils % 1.2 % (0-4.4); Hematocrit 35.6 % (36.0-45.0); Hemoglobin 11.7 g/dL (12.0-15.0); Lymphocytes % 14.8 % (15.3-44.8); MCH 30.7 pg (27.0-35.0); MCHC 32.9 g/dL (32.0-36.0); MCV 93.5 fL (80-100); MPV 8.9 fL (7.6-11.3); Monocytes % 12.6 % (3.3-12.3); Nucleated Red Blood Cells % 0.2 % (0-0); Platelets 214 thou/uL (152-406); RBC Red Blood Cell Count 3.81 M/uL (3.86-4.86); Red Cell Distribution Width 13.5 % (12.1-15.2)
[2023-09-05 14:41] LABS: PT Prothrombin Time 12.2 SECONDS (9.5-12.5); PTT, Activated Partial Thromb 28.4 SECONDS (24.3-36.9); Protime INR 1.11
[2023-09-05 14:48] LABS: Albumin 2.9 g/dL (3.4-5.0); Albumin/Globulin Ratio 0.6 (1.1-1.8); Anion Gap 8.7 mEq/L (5.0-15.0); Bilirubin Direct 0.2 mg/dL (0-0.2); Bilirubin Indirect, Calculated 0.1 mg/dL (0.2-0.8); Bilirubin Total 0.3 mg/dL (0.2-1.0); Globulin 4.7 g/dL (2.3-3.5); Magnesium 2.1 mg/dL (1.6-2.4); Potassium 3.7 mEq/L (3.5-5.1); Protein, Total 7.6 g/dL (6.4-8.2); Troponin High Sensitivity 6.5 pg/mL (<58.9)
--- NOTE | 2023-09-05 15:53 | RAD REPORT ---
EXAM DESCRIPTION: Theot Single View09/05/2023 3:36 pm CLINICAL HISTORY: SOB COMPARISON: Chest Pa And Lat (2 Views) dated 03/05/2023; Chest Pa And Lat (2 Views) dated 08/07/2022; Chest Pa And Lat (2 Views) dated 07/20/2018; Chest Pa And Lat (2 Views) dated 06/28/2017 TECHNIQUE: Portable AP view of the chest. FINDINGS: Patchy opacification in the left upper lobe. Background Hyperlucency hyperinflation suggesting COPD. No pneumothorax or effusion. The cardiomedias tinal contours are unremarkable. IMPRESSION: Patchy opacification in the left upper lobe, concerning for pneumonia.
--- NOTE | 2023-09-05 16:36 | ER ---
Nurse's Notes [facility] Name: Patricia Case Age: 68 yrs Sex: Female : 1955 Arrival Date: 09/05/2023 Time: 13:35 Bed 6 Private MD: Diagnosis: shortness of breath;fluid overload;cough Presentation: 09/04 13:42 Acuity: ELSA 3 aa5 13:42 Onset of symptoms was August 2023. aa5 13:42 Coronavirus screen: shortness of breath. Ebola Screen: [facility] denies [facility] to an [facility] in the 21 days before illness onset. Initial Sepsis Screen: Does the patient meet any 2 criteria? HR > 90 bpm. Does the patient have a suspected source of infection? No. Patient's initial sepsis screen is negative. Risk Assessment: Do you want to hurt yourself or someone else? Patient reports no desire to harm self or others. 13:42 [facility] Chief complaint: Patient states: lower back pain x 10 days ago and increased SOB on aa5 exertion, hx of COPD, home O2 via NC. Triage Assessment: 14:00 General: Appears in no apparent distress. uncomfortable, Behavior is cooperative, bp appropriate for age, anxious. Pain: Complains of pain in back. Respiratory: Reports shortness of breath Onset: The symptoms/episode began/occurred at an unknown time. the patient has mild shortness of breath. Historical: - Allergies: 13:47 PENICILLINS (Rash); aa5 - PMHx: 13:47 CHF; COPD; Hypertensive disorder; Breast Cancer; Right kidney cyst; aa5 - PSHx: 13:47 Right arm lumpectomy; Tonsillectomy; defibrillator; Appendectomy; Cholecystectomy; luis enrique aa5 rotator cuff; Left breast reduction; elbow; cataracts; hysterectomy; - Immunization history:: Adult Immunizations unknown. - Social history:: Smoking status: Patient reports the use of cigarette tobacco products. Screenin:45 [facility] ED Fall Risk Assessment (Adult) History of falling in the last 3 months, rs5 including since admission No falls in past 3 months (0 pts) Confusion or Disorientation No (0 pts) Intoxicated or Sedated No (0 pts) Impaired Gait No (0 pts) Mobility Assist Device Used No (0 pt) Altered Elimination No (0 pt) Score/Fall Risk Level 0 - 2 = Low Risk Oriented to surroundings, Maintained a safe environment. 13:45 Abuse screen: Denies threats or abuse. Nutritional screening: No deficits noted. rs5 Tuberculosis screening: No symptoms or risk factors identified. Assessment: 14:00 General: SEE TRIAGE NOTE. Cardiovascular: Rhythm is regular. Respiratory: Airway is bp patent Respiratory effort is even, unlabored, Breath sounds are coarse bilaterally. 15:15 Reassessment: Pt states "I don't want any pain meds". Pain: Complains of pain in back rs5 lower abdomen Pain currently is 5 out of 10 on a pain scale. Quality of pain is described as aching. 15:19 Reassessment: Patient appears in no apparent distress at this time. Patient is alert, bp oriented x 3, equal unlabored respirations, skin warm/dry/pink. 16:00 General: Appears in no apparent distress. comfortable, Behavior is calm, cooperative. rs5 Pain: Complains of pain in back lower abomen Pain currently is 5 out of 10 on a pain scale. Quality of pain is described as aching, Is continuous. Neuro: Level of Consciousness is awake, alert, obeys commands, Oriented to person, place, time, situation. Cardiovascular: Rhythm is regular. Respiratory: Reports cough that is Pt states "I've been smoking about half a pack of cigarette for about 30 years" Airway is patent Respiratory effort is even, unlabored, Respiratory pattern is regular, symmetrical. GI: Abdomen is flat, non-distended, Abd is soft and non tender X 4 quads. : No signs and/or symptoms were reported regarding the genitourinary system. EENT: No signs and/or symptoms were reported regarding the EENT system. Derm: Skin is intact, Skin is pink, warm \\T\\ dry. Musculoskeletal: Range of motion: intact in all extremities. 16:01 Reassessment: Pt states "I don't want pain meds". rs5 16:40 Reassessment: No changes from previously documented assessment. rs5 Vital Signs: 13:42 BP 116 / 71; Pulse 124; Resp 18 S; Temp 98.1(O); Pulse Ox 95% on 3 lpm NC; Weight 42.18 aa5 kg (R); Height 5 ft. 4 in. (R); 14:20 BP 116 / 71; Pulse 98; Resp 18; Pulse Ox 99% on R/A; rs5 15:18 BP 116 / 66; Pulse 98; Resp 20; Pulse Ox 99% ; bp 16:40 BP 120 / 68; Pulse 85; Resp 18; Pulse Ox 99% on R/A; rs5 13:42 Body Mass Index 15.96 (42.18 kg, 162.56 cm) aa5 ED Course: 13:38 Patient arrived in ED. mg5 13:41 Mikie Blake MD is Attending Physician. cp3 13:42 Arm band placed on Patient placed in an exam room, on a stretcher. aa5 13:45 Patient has correct armband on for positive identification. Placed in gown. Bed in low rs5 position. Call light in reach. Side rails up X2. 13:45 No provider procedures requiring assistance completed. rs5 13:57 Triage completed. aa5 13:57 Nik Augustin, RN is Primary Nurse. rs5 15:38 XRAY CXR (1 view) In Process Unspecified. EDMS 16:55 IV discontinued, intact, bleeding controlled, No redness/swelling at site. Pressure rs5 dressing applied. Administered Medications: 15:05 Drug: Furosemide IVP 40 mg IVP once; give over 2 minutes Route: IVP; Site: left rs5 antecubital; 15:20 Follow up: Response: No adverse reaction rs5 Medication: 16:30 VIS not applicable for this client. rs5 Outcome: 16:35 Discharge ordered by MD. cp3 16:55 Discharged to home ambulatory, rs5 16:55 Condition: stable 16:55 Discharge instructions given to patient, Instructed on discharge instructions, follow up and referral plans. Demonstrated understanding of instructions, follow-up care, 16:58 Patient left the ED. rs5 Signatures: Dispatcher [employer] EDMS Mikie Blake MD MD cp3 Elli Donovan RN RN aa5 Nomi Fallon RN RN bp Sotelo, Ricky, KULWINDER RN rs5 Ramonita Bailon mg5 Corrections: (The following items were deleted from the chart) 14:00 13:42 BP 116 / 71; Pulse 124bpm; Resp 18bpm; Spontaneous; Temp 98.1F Oral; 42.18 kg aa5 Reported; Height 5 ft. 4 in. Reported; BMI: 15.9; aa5
--- NOTE | 2023-09-05 16:36 | EDPHYS ---
Physician Documentation [facility] Name: Patricia Case Age: 68 yrs Sex: Female : 1955 Arrival Date: 09/05/2023 Time: 13:35 Bed 6 Private MD: ED Physician Mikie Blake Historical: - Allergies: 09/04 13:47 PENICILLINS (Rash); aa5 - PMHx: 13:47 CHF; COPD; Hypertensive disorder; Breast Cancer; Right kidney cyst; aa5 - PSHx: 13:47 Right arm lumpectomy; Tonsillectomy; defibrillator; Appendectomy; Cholecystectomy; luis enrique aa5 rotator cuff; Left breast reduction; elbow; cataracts; hysterectomy; - Immunization history:: Adult Immunizations unknown. - Social history:: Smoking status: Patient reports the use of cigarette tobacco products. Vital Signs: 13:42 BP 116 / 71; Pulse 124; Resp 18 S; Temp 98.1(O); Pulse Ox 95% on 3 lpm NC; Weight 42.18 aa5 kg (R); Height 5 ft. 4 in. (R); 14:20 BP 116 / 71; Pulse 98; Resp 18; Pulse Ox 99% on R/A; rs5 15:18 BP 116 / 66; Pulse 98; Resp 20; Pulse Ox 99% ; bp 16:40 BP 120 / 68; Pulse 85; Resp 18; Pulse Ox 99% on R/A; rs5 13:42 Body Mass Index 15.96 (42.18 kg, 162.56 cm) aa5 MDM: 13:50 Patient medically screened. cp3 09/04 14:02 Order name: BMP; Complete Time: 14:56 cp3 09/04 14:02 Order name: Blood Culture Adult (2) cp3 09/04 14:02 Order name: CBC with Diff; Complete Time: 14:56 cp3 09/04 14:02 Order name: CPK; Complete Time: 14:56 cp3 09/04 14:02 Order name: Hepatic Function; Complete Time: 14:56 cp3 09/04 14:02 Order name: Lipase; Complete Time: 14:56 cp3 09/04 14:02 Order name: Magnesium; Complete Time: 14:56 cp3 09/04 14:02 Order name: NT PRO-BNP; Complete Time: 14:56 cp3 09/04 14:02 Order name: PT-INR; Complete Time: 14:56 3 09/04 14:02 Order name: Ptt, Activated; Complete Time: 14:56 3 09/04 14:02 Order name: Troponin HS; Complete Time: 14:56 3 09/04 14:02 Order name: XRAY CXR (1 view); Complete Time: 16:09 3 09/04 14:02 Order name: EKG; Complete Time: 14:03 3 09/04 14:02 Order name: Cardiac monitoring; Complete Time: 14:24 3 09/04 14:02 Order name: EKG - Nurse/Tech; Complete Time: 14:24 3 09/04 14:02 Order name: IV Saline Lock; Complete Time: 14:24 3 09/04 14:02 Order name: Labs collected and sent; Complete Time: 14:24 3 09/04 14:02 Order name: O2 Per Protocol; Complete Time: 14:24 3 09/04 14:02 Order name: O2 Sat Monitoring; Complete Time: 14:24 cp3 Administered Medications: 15:05 Drug: Furosemide IVP 40 mg IVP once; give over 2 minutes Route: IVP; Site: left rs5 antecubital; 15:20 Follow up: Response: No adverse reaction rs5 Disposition Summary: 09/05/23 16:35 Discharge Ordered Notes: Location: Home cp3 Condition: Stable cp3 Diagnosis - shortness of breath cp3 - fluid overload cp3 - cough cp3 Discharge Instructions: - Discharge Summary Sheet cp3 - Shortness of Breath, Adult cp3 Forms: - Medication Reconciliation Form cp3 - Thank You Letter cp3 - Antibiotic Education cp3 - Prescription Opioid Use cp3 - Patient Portal Instructions cp3 - Leadership Thank You Letter cp3 Prescriptions: - acetaminophen-codeine 300-30 mg Oral tablet - take 1 tablet ORAL route every 8 hours as needed for pain; 9 tablet; Refills: cp3 0, Product Selection Permitted - levofloxacin 500 mg Oral tablet - take 1 tablet ORAL route once daily for 7 days; 7 tablet; Refills: 0, Product cp3 Selection Permitted Signatures: Dispatcher [employer] Mikie Lacey MD MD cp3 Elli Donovan RN RN aa5 Augustin, Nik, RN RN rs5
[2023-09-05 17:08] VITALS: BP 116/66; TEMP 98.1; O2SAT 99
--- NOTE | 2023-09-07 14:12 | EKG ---
Test Date: 2023-09-05 Test Time: 13:17:56 Music Industry Intern: TESS MEASUREMENT RESULTS: Intervals: Rate: 105 KS: 152 QRSD: 94 QT: 338 QTc: 446 [place]: P: 86 KS: 152 QRS: 56 T: 76 INTERPRETIVE STATEMENTS: Sinus tachycardia Otherwise normal ECG Compared to ECG 03/05/2023 09:54:00 Sinus rhythm no longer present Electronically Signed On 09-07-23 14:06:58 CDT by Prashant Severino
== END ==
LOC: ER 13:35
DX: E87.70 Fluid overload, unspecified (principal); R05.9 Cough, unspecified; J44.9 Chronic obstructive pulmonary disease, unspecified; I50.9 Heart failure, unspecified; I10 Essential (primary) hypertension; Z95.810 Presence of automatic (implantable) cardiac defibrillator; Z88.0 Allergy status to penicillin
CPT/HCPCS: 93005; 87040 ×2; 85025; 80048; 36415; 83735; 82550; 87205; 85610; 80076; 85730; 84484; 83690; 83880; 71045; J1940; 96374; 99284

== ENCOUNTER 2023-12-10 08:10 | Inpatient (IN) | payer MEDICARE ==
[2023-12-10 09:06] LABS: Absolute Eosinophils 0.1 K/uL (0-0.5); Absolute Lymphocytes (CBC) 0.3 K/uL (0.7-4.9); Absolute Monocytes 0.7 K/uL (0.1-1.3); Absolute Neutrophil 8.4 K/uL (1.8-8.0); Basophils % 0.3 % (0-1.3); Eosinophils % 0.8 % (0-4.4); Hematocrit 32.6 % (36.0-45.0); Lymphocytes % 3.4 % (15.3-44.8); MCH 26.6 pg (27.0-35.0); MCHC 30.7 g/dL (32.0-36.0); MCV 86.7 fL (80-100); MPV 8.6 fL (7.6-11.3); Monocytes % 7.3 % (3.3-12.3); Neutrophils % 88.2 % (41.7-73.7); Platelets 302 thou/uL (152-406); RBC Red Blood Cell Count 3.76 M/uL (3.86-4.86); Red Cell Distribution Width 14.8 % (12.1-15.2)
[2023-12-10 09:13] LABS: PT Prothrombin Time 13.2 SECONDS (9.4-12.5); PTT, Activated Partial Thromb 25.2 SECONDS (24.3-36.9); Protime INR 1.21
[2023-12-10 09:30] LABS: ALT/SGPT < 14 U/L (13-56); AST/SGOT < 10 U/L (15-37); Albumin 2.1 g/dL (3.4-5.0); Albumin/Globulin Ratio 0.4 (1.1-1.8); Alkaline Phosphatase 75 U/L (45-117); Anion Gap 2.9 mEq/L (5.0-15.0); BUN Blood Urea Nitrogen 7 mg/dL (7-18); Bicarbonate 45 mEq/L (21-32); Bilirubin Total 0.6 mg/dL (0.2-1.0); Globulin 4.7 g/dL (2.3-3.5); Glomerular Filtration Rate 114 ml/min (=/>90); Glucose Level 125 mg/dL (74-106); NT PRO-BNP 868 pg/mL (<125); Potassium 3.9 mEq/L (3.5-5.1); Protein, Total 6.8 g/dL (6.4-8.2); Sodium Level 139 mEq/L (136-145)
[2023-12-10 09:38] LABS: Platelet Estimate ADEQ; White Blood Cell Scan OK (OK)
[2023-12-10 09:39] LABS: Blood Morphology Comment NOT SEEN (NOT SEEN)
--- NOTE | 2023-12-10 09:41 | RAD REPORT ---
EXAM DESCRIPTION: RADChest Single View12/10/2023 9:16 am CLINICAL HISTORY: DYSPNEA COMPARISON: Chest Pa And Lat (2 Views) dated 11/16/2023; Chest Pa And Lat (2 Views) dated 09/28/2023; C hest Single View dated 09/05/2023; Chest Pa And Lat (2 Views) dated 03/05/2023 TECHNIQUE: Portable AP view of the chest. FINDINGS: Progressive patchy opacification surrounding a left apical cavitary lesion. Other new patc hy airspace opacities throughout the left lung, upper lobe predominant. Background hyperlucency and h yperinflation. Right lung is clear. Nerve stimulator in place. No pneumothorax or effusion. The card iomediastinal contours are unremarkable. IMPRESSION: Progressive left lung airspace opacities as above, concerning for pneumonia.
--- NOTE | 2023-12-10 10:31 | ER ---
Nurse's Notes [facility] Name: Patricia Case Age: 68 yrs Sex: Female : 1955 Arrival Date: 12/10/2023 Time: 08:10 Bed 2 Private MD: Diagnosis: Pneumonia;Hypoxia;Elevated troponin Presentation: 12/09 08:17 Chief complaint: EMS states: Toned out for shortness of breath and weakness x 1 week, jl7 pt reported home O2 sat of 76%, uses home oxygen 3.5 lpm NC. O2 for EMS 93% on arrival, increased O2 to 4 lpm. Coronavirus screen: shortness of breath, Client presents with at least one sign or symptom that may indicate coronavirus-19. Ebola Screen: No symptoms or risks identified at this time. Initial Sepsis Screen: Does the patient meet any 2 criteria?. Risk Assessment: Do you want to hurt yourself or someone else? Patient reports no desire to harm self or others. Onset of symptoms was December 03, 2023. 08:17 Method Of Arrival: EMS: [facility] 08:17 Acuity: ELSA 2 jl 08:17 Care prior to arrival: VS: BP 124/71, HR 120, O2 93%, T 98.3, RR 20. jl7 09:30 Initial Sepsis Screen: Does the patient have a suspected source of infection? No. aa5 Patient's initial sepsis screen is negative. Triage Assessment: 08:22 General: Appears in no apparent distress. uncomfortable, Behavior is calm, cooperative, jl7 appropriate for age. Pain: Denies pain. Neuro: Level of Consciousness is awake, alert, obeys commands, Oriented to person, place, time, situation. Cardiovascular: Patient's skin is warm and dry. Respiratory: Reports shortness of breath at rest Onset: The symptoms/episode began/occurred x 1 week, the patient has mild shortness of breath. Respiratory: Airway is patent Respiratory effort is even, labored, Respiratory pattern is symmetrical, tachypnea. Derm: Skin is pink, warm \T\ dry. 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 - Infectious Disease History:: Denies. Mycobacterium Avium. - Social history:: Smoking status: Patient/guardian denies using tobacco, Stopped _ months ago 2. - Family history:: not pertinent. Screenin:43 [facility] ED Fall Risk Assessment (Adult) History of falling in the last 3 months, aa5 including since admission No falls in past 3 months (0 pts) Confusion or Disorientation No (0 pts) Intoxicated or Sedated No (0 pts) Impaired Gait No (0 pts) Mobility Assist Device Used No (0 pt) Altered Elimination No (0 pt) Score/Fall Risk Level 0 - 2 = Low Risk Oriented to surroundings, Maintained a safe environment, Educated pt \T\ family on fall prevention, incl call for assistance when getting out of bed. Abuse screen: Denies threats or abuse. Nutritional screening: No deficits noted. 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 . Assessment: 09:45 General: Appears uncomfortable, slender, Behavior is calm, cooperative. Pain: Denies aa5 pain. Neuro: Level of Consciousness is awake, alert, obeys commands, Oriented to person, place, time, situation, Golf Technician are weak bilaterally Moves all extremities. Weakness Speech is normal, Facial symmetry appears normal, Reports generalized weakness . Cardiovascular: Heart tones S1 S2 present Rhythm is regular. Respiratory: Reports shortness of breath at rest cough Airway is patent Respiratory effort is even, unlabored, Respiratory pattern is regular, symmetrical, Breath sounds are coarse bilaterally. GI: Abdomen is flat, non-distended. : No signs and/or symptoms were reported regarding the genitourinary system. EENT: No signs and/or symptoms were reported regarding the EENT system. Derm: Skin is pink, warm \T\ dry. Musculoskeletal: Range of motion: intact in all extremities. 11:07 Reassessment: Patient is alert, oriented x 3, equal unlabored respirations, skin aa5 warm/dry/pink. 11:40 Reassessment: Patient is alert, oriented x 3, equal unlabored respirations, skin aa5 warm/dry/pink. 12:00 Reassessment: Patient is alert, oriented x 3, equal unlabored respirations, skin aa5 warm/dry/pink. Patient states feeling better. 13:20 Reassessment: Patient is alert, oriented x 3, equal unlabored respirations, skin aa5 warm/dry/pink. Vital Signs: 09:13 BP 118 / 62; Pulse 109; Resp 18; Pulse Ox 100% on 4 lpm NC; ap3 10:12 BP 114 / 56; Pulse 98; Pulse Ox 100% on 4 lpm NC; ap3 11:12 BP 115 / 64; Pulse 93; Resp 22 S; Temp 97.9(TE); Pulse Ox 100% 4 lpm ; aa5 12:00 BP 106 / 53; Pulse 97; Resp 20 S; Temp 97.6(TE); Pulse Ox 98% on 2 lpm NC; aa5 12:45 BP 92 / 49; Pulse 96; Resp 18 S; Pulse Ox 100% on 2 lpm NC; aa5 13:06 BP 91 / 51; Pulse 96; Resp 19 S; Pulse Ox 99% on 2 lpm NC; aa5 13:20 BP 92 / 48; Pulse 96; Resp 20 S; Pulse Ox 98% on 2 lpm NC; aa5 13:45 BP 96 / 48; Pulse 97; Resp 18 S; Pulse Ox 100% on 2 lpm NC; aa5 13:06 Abraham Bland NP contacted over the phone about decreased BP. See [facility]. aa5 ED Course: 08:17 Patient arrived in ED. jl7 08:22 Triage completed. jl7 08:22 Arm band placed on right wrist. jl7 08:26 Gal Weber MD is Attending Physician. rt 08:45 First set of blood cultures drawn by me. zm 09:00 Initial lab(s) drawn, by me, sent to lab. Second set of blood cultures drawn by me. zm Inserted saline lock: 20 gauge in left forearm, using aseptic technique. Blood collected. 09:03 BNP Sent. zm 09:03 Troponin High Sensitivity Sent. zm 09:03 Blood Culture Adult (2) Sent. zm 09:03 CBC with Diff Sent. zm 09:03 CMP Sent. zm 09:03 Lactate w/ 2H reflex if indic. Sent. zm 09:03 Protime (+inr) Sent. zm 09:03 Ptt, Activated Sent. zm 09:18 Chest Single View XRAY In Process Unspecified. EDMS 09:30 Patient has correct armband on for positive identification. Bed in low position. Call aa5 light in reach. Side rails up X 1. Client placed on continuous cardiac and pulse oximetry monitoring. NIBP monitoring applied. hospital monitor on. Pulse ox on. NIBP on. 10:30 Dave Kraft MD is Hospitalizing Provider. rt 11:12 Elli Donovan, KULWINDER is Primary Nurse. aa5 13:45 Patient admitted, IV remains in place. aa5 13:45 No provider procedures requiring assistance completed. aa5 Administered Medications: 11:07 Drug: LevaQUIN IVPB 750 mg IVPB once Route: IVPB; Site: left forearm; aa5 11:40 Follow up: Response: No adverse reaction aa5 12:37 Follow up: Response: No adverse reaction; IV Status: Completed infusion aa5 11:07 Drug: NS 0.9% IV 500 ml IV at bolus once Route: IV; Rate: bolus; Site: left forearm; aa5 12:00 Follow up: IV Status: Completed infusion; IV Intake: 500ml aa5 11:40 Drug: DuoNeb Nebulize (2.5 mg - 0.5 mg) 3 ml Nebulizer once Route: Nebulizer; aa5 12:00 Follow up: Response: No adverse reaction; Marked relief of symptoms aa5 11:40 Drug: Aspirin PO Chewable Tablet 324 mg PO once; 81 mg tablets x 4 Route: PO; aa5 13:45 Follow up: Response: No adverse reaction aa5 Medication: 12:12 VIS not applicable for this client. aa5 Intake: 12:00 IV: 500ml; Total: 500ml. aa5 Outcome: 10:30 Decision to Hospitalize by Provider. rt 13:45 Admitted to Tele accompanied by tech, via stretcher, with oxygen, with chart, aa5 13:45 Condition: stable aa5 13:45 Instructed on the need for admit, 13:49 Patient left the ED. hb Signatures: Dispatcher [employer] EDElli Mayer RN RN aa5 Diya Nugent RN RN Avtar Florentino RN RN 7 Blanca Lieberman RN RN corey3 Yue Marquez Ryan, MD MD rt Corrections: (The following items were deleted from the chart) 08: 08:22 PSHx: Left breast reduction; 7 jl7 10:13 09:13 BP 118 / 62; Pulse 109bpm; Resp 18bpm; Pulse Ox 100%; ap3 ap3 11:17 08:22 Home Meds: Metoprolol Tartrate Oral; 7 aa5 11:17 08:22 Home Meds: Spironolactone Oral; 7 aa5 11:17 08:22 Home Meds: Prednisone Oral; 7 aa5 11:17 08:22 Home Meds: Ventolin Nebulizer; [facility] aa5 14:14 11:12 BP 115 / 64; Pulse 93bpm; Resp 22bpm; Spontaneous; Pulse Ox 100% 4 lpm; 5 5
--- NOTE | 2023-12-10 10:31 | EDPHYS ---
Physician Documentation [facility] Name: Patricia Case Age: 68 yrs Sex: Female : 1955 Arrival Date: 12/10/2023 Time: 08:10 Bed 2 Private MD: ED Physician Gal Weber HPI: 12/09 08:44 This 68 yrs old Female presents to ER via EMS with complaints of Shortness Of Breath. rt 08:44 Patient presents to the ED with shortness of breath. The patient has a history of COPD, rt CHF. The patient has had worsening breathing, weakness for the past week. Denies any pain. Reports mild nausea. Symptoms are moderate in severity, no other aggravating alleviating factors. Patient noted that her oxygen saturations were about 73% on room air. She chronically wears 3.5 L, bumped up to 4 L.. 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 - Infectious Disease History:: Denies. Mycobacterium Avium. - Social history:: Smoking status: Patient/guardian denies using tobacco, Stopped _ months ago 2. - Family history:: not pertinent. ROS: 08:44 Constitutional: Negative for fever, chills, and weight loss, Cardiovascular: Negative rt for chest pain, palpitations, and edema, Abdomen/GI: Negative for abdominal pain, nausea, vomiting, diarrhea, and constipation, MS/Extremity: Negative for injury and deformity, Skin: Negative for injury, rash, and discoloration, Neuro: Negative for headache, weakness, numbness, tingling, and seizure, 08:44 Respiratory: Positive for cough, shortness of breath, Exam: 08:44 Constitutional: This is a well developed, well nourished patient who is awake, alert, rt and in no acute distress. Head/Face: Normocephalic, atraumatic. Chest/axilla: Normal chest wall appearance and motion. Nontender with no deformity. No lesions are appreciated. Cardiovascular: Regular rate and rhythm with a normal S1 and S2. No gallops, murmurs, or rubs. Normal PMI, no JVD. No pulse deficits. Abdomen/GI: Soft, non-tender, with normal bowel sounds. No distension or tympany. No guarding or rebound. No evidence of tenderness throughout. Skin: Warm, dry with normal turgor. Normal color with no rashes, no lesions, and no evidence of cellulitis. MS/ Extremity: Pulses equal, no cyanosis. Neurovascular intact. Full, normal range of motion. Neuro: Awake and alert, GCS 15, oriented to person, place, time, and situation. Cranial nerves II-XII grossly intact. Motor strength 5/5 in all extremities. Sensory grossly intact. Cerebellar exam normal. Normal gait. 08:44 Respiratory: Diminished breath sounds diffusely, no respiratory distress, 09:01 ECG was reviewed by the Attending Physician. rt Vital Signs: 09:13 BP 118 / 62; Pulse 109; Resp 18; Pulse Ox 100% on 4 lpm NC; ap3 10:12 BP 114 / 56; Pulse 98; Pulse Ox 100% on 4 lpm NC; ap3 11:12 BP 115 / 64; Pulse 93; Resp 22 S; Temp 97.9(TE); Pulse Ox 100% 4 lpm ; aa5 12:00 BP 106 / 53; Pulse 97; Resp 20 S; Temp 97.6(TE); Pulse Ox 98% on 2 lpm NC; aa5 12:45 BP 92 / 49; Pulse 96; Resp 18 S; Pulse Ox 100% on 2 lpm NC; aa5 13:06 BP 91 / 51; Pulse 96; Resp 19 S; Pulse Ox 99% on 2 lpm NC; aa5 13:20 BP 92 / 48; Pulse 96; Resp 20 S; Pulse Ox 98% on 2 lpm NC; aa5 13:45 BP 96 / 48; Pulse 97; Resp 18 S; Pulse Ox 100% on 2 lpm NC; aa5 13:06 Abraham Bland NP contacted over the phone about decreased BP. See [facility] MAR. aa5 MDM: 08:36 Patient medically screened. rt 10:31 Differential diagnosis: Pneumonia, COPD, CHF. Data reviewed: vital signs, nurses notes, rt lab test result(s), EKG, radiologic studies. Consideration of Admission/Observation Patient was admitted/placed on observation. Management of patient was discussed with the following: Hospitalist: Agrees to admit. I considered the following discharge prescriptions or medication management in the emergency department Medications were administered in the Emergency Department. See MAR. Independent interpretation of the following test(s) in the Emergency Department X-Ray: My interpretation is Left upper lobe pneumonia seen on interpretation of x-ray images. Test considered but Not performed: CT: Low suspicion for pulmonary embolism, pneumonia likely etiology, CT angiogram not indicated. Care significantly affected by the following chronic conditions: Congestive Heart Failure, Chronic Obstructive Pulmonary Disease. Counseling: I had a detailed discussion with the patient and/or guardian regarding the historical points, exam findings, and any diagnostic results supporting the discharge/admit diagnosis, lab results, radiology results, the need for further work-up and treatment in the hospital. Response to treatment: the patient's symptoms have markedly improved after treatment. 12/09 08:43 Order name: Blood Culture Adult (2) rt 12/09 08:43 Order name: CBC with Diff; Complete Time: 09:44 rt 12/09 08:43 Order name: CMP; Complete Time: 09:44 rt 12/09 08:43 Order name: Lactate w/ 2H reflex if indic.; Complete Time: 09:44 rt 12/09 08:43 Order name: Protime (+inr); Complete Time: 09:44 rt 12/09 08:43 Order name: Ptt, Activated; Complete Time: 09:44 rt 12/09 08:43 Order name: BNP; Complete Time: 09:44 rt 12/09 08:43 Order name: Troponin High Sensitivity; Complete Time: :44 rt 12/09 09:12 Order name: CBC Smear Scan; Complete Time: :44 EDMS 12/09 09:19 Order name: Glucose, Ancillary Testing; Complete Time: 09:44 EDMS 12/09 10:55 Order name: Troponin High Sensitivity EDMS 12/09 10:55 Order name: Troponin High Sensitivity EDMS 12/09 10:55 Order name: Troponin High Sensitivity EDMS 12/09 08:43 Order name: Chest Single View XRAY; Complete Time: 09:44 rt 12/09 10:55 Order name: Echo with Doppler EDMS 12/09 08:43 Order name: Accucheck; Complete Time: 09:03 rt 12/09 08:43 Order name: Cardiac monitoring; Complete Time: 09:03 rt 12/09 08:43 Order name: EKG - Nurse/Tech; Complete Time: 09:03 rt 12/09 08:43 Order name: IV Saline Lock - Large Bore; Complete Time: 09:03 rt 12/09 08:43 Order name: Labs collected and sent; Complete Time: 09:03 rt 12/09 08:43 Order name: O2 Per Protocol; Complete Time: 09:03 rt 12/09 08:43 Order name: O2 Sat Monitoring; Complete Time: 09:03 rt 12/09 08:43 Order name: Vital Signs; Complete Time: 09:03 rt EC:01 Rate is 113 beats/min. Rhythm is regular, Sinus tachycardia with No ectopy. QRS Kelley is rt Normal. OH interval is normal. QRS interval is normal. QT interval is normal. No Q waves. T waves are Normal. No ST changes noted. Administered Medications: 11:07 Drug: LevaQUIN IVPB 750 mg IVPB once Route: IVPB; Site: left forearm; 11:40 Follow up: Response: No adverse reaction 12:37 Follow up: Response: No adverse reaction; IV Status: Completed infusion : Drug: NS 0.9% IV 500 ml IV at bolus once Route: IV; Rate: bolus; Site: left forearm; 12:00 Follow up: IV Status: Completed infusion; IV Intake: 500ml :40 Drug: DuoNeb Nebulize (2.5 mg - 0.5 mg) 3 ml Nebulizer once Route: Nebulizer; 12:00 Follow up: Response: No adverse reaction; Marked relief of symptoms :40 Drug: Aspirin PO Chewable Tablet 324 mg PO once; 81 mg tablets x 4 Route: PO; aa5 13:45 Follow up: Response: No adverse reaction aa5 Disposition: 10:31 Critical Care:. rt Disposition Summary: 12/10/23 10:30 Hospitalization Ordered Notes: Hospitalization Status: Inpatient Admission rt Provider: Dave Kraft rt Location: Telemetry/[facility] (Inpatient) rt Condition: Stable rt Problem: new rt Symptoms: have improved rt Bed/Room Type: Standard rt Room Assignment: 408(12/10/23 12:20) jr12 Diagnosis - Pneumonia rt - Hypoxia rt - Elevated troponin rt Forms: - Medication Reconciliation Form rt - SBAR form rt - Leadership Thank You Letter rt Critical care time excluding procedures: 10:31 Critical care time: Bedside Care: 30 minutes, Consultation: 5 minutes. Total time: 35 rt minutes Signatures: Dispatcher [employer] EDElli Mayer, RN RN [email or web address] Abraham Bland, RETAIL DEPARTMENT MANAGER-C RETAIL DEPARTMENT MANAGER-Cla1 Avtar Florentino RN RN jl7 Gal Weber MD MD rt Alice Bell jr12 Corrections: (The following items were deleted from the chart) 08:29 08:22 PSHx: Left breast reduction; 7 jl7 08:43 08:43 Chest Single View+RAD.RAD.BRZ ordered. [facility] 11:17 08:22 Home Meds: Metoprolol Tartrate Oral; jl7 aa5 11:17 08:22 Home Meds: Spironolactone Oral; 7 aa5 11:17 08:22 Home Meds: Prednisone Oral; 7 aa5 11:17 08:22 Home Meds: Ventolin Nebulizer; 7 aa5 12:20 10:30 rt jr12
[2023-12-10] MEDS ORDERED: NA CHLORIDE 0.9% 500 ML ONE ×2 (10:51→13:08)
[2023-12-10] MEDS ORDERED: Levofloxacin 750mg IV 750 MG/150 ML BAG IV ONE (10:52)
[2023-12-10] MEDS ORDERED: IPRATROPIUM BROM 0.5MG/2.5ML ONE (11:29)
[2023-12-10] MEDS ORDERED: ALBUTEROL 2.5 MG/3 ML NEB SOL ONE (11:29)
[2023-12-10] MEDS ORDERED: ASPIRIN 81 MG CHEWABLE TABLET ONE (11:30)
[2023-12-10] MEDS: NA CHLORIDE 0.9% 1,000 ML IV SCH (12:20)
[2023-12-10] MEDS ORDERED: IPRATROPIUM BROM 0.5MG/2.5ML NEB PRN (12:20)
[2023-12-10] MEDS ORDERED: ONDANSETRON 4 MG/2 ML VIAL IV PRN (12:20)
[2023-12-10] MEDS ORDERED: ALBUTEROL 2.5 MG/3 ML NEB SOL NEB PRN ×2 (12:20→14:53)
[2023-12-10] MEDS: NA CHLORIDE 0.9% 500 ML IV ONE (13:07)
[2023-12-10] MEDS ORDERED: NA CHLORIDE 0.9% 1,000 ML ONE (13:08)
[2023-12-10 14:47] VITALS: BMI 16.1
--- NOTE | 2023-12-10 15:04 | P.HP ---
Certification for Inpatient Patient admitted to: Inpatient Patient will require the following post-hospital care: None Practitioner: I am a practitioner with admitting privileges, knowledge of patient current condition, hospital course, and medical plan of care. Services: Services provided to patient in accordance with Admission requirements found in Title 42 Section 412.3 of the Code of Federal Regulations Patient History Date of Service: 12/10/23 Reason for admission: COPD exacerbation, NSTEMI, pneumonia History of Present Illness: 68-year-old female with history of COPD on chronic steroid/home O2, chronic systolic congestive heart failure, hypertension who was recently diagnosed with Mycobacterium AVM presents to the emergency department with chief complaint of shortness of breath. She reports is been getting progressively worse the past 2 weeks but had an acute worsening this morning of that reason presented to the hospital for evaluation. She was evaluated in the emergency department her labs are significant for a chloride of 95 bicarb of 45 lactic acid 1.0 troponin 101 BNP 868 chest x-ray was performed which shows progressive left lung airspace opacities concerning for pneumonia. Patient was started on rifampin, ethambutol and Zithromax recently by her pharmaceutical analyst Dr. Young. Patient be admitted for COPD exacerbation, NSTEMI, pneumonia/Mycobacterium avium. Allergies Penicillins Allergy (Severe, Verified 11/25/23 08:00) Itching/Hives/Rash codeine Adverse Reaction (Verified 11/25/23 08:00) VOMITING hydrocodone Adverse Reaction (Verified 11/25/23 08:00) Nausea/Vomiting morphine Adverse Reaction (Verified 11/25/23 08:00) VOMITING Home Medications: Ipratropium [Atrovent 0.03% (21MCG)/[place] Nasal] 2 sprays NS QID 07/20/18 Metoprolol Succinate 50 mg PO DAILY 07/20/18 Spironolactone [Aldactone] 25 mg PO DAILY 09/11/21 Albuterol Inhaler [Ventolin Inhaler*] 2 inh IH QID 03/05/23 Aspirin [Aspirin Regimen] 81 mg PO DAILY 03/05/23 Fluticasone/Umeclidin/Vilanter [Trelegy Ellipta 100-62.5-25] 1 each IH DAILY 03/05/23 Prednisone [Sterapred Ds] 1 tab PO DAILY 11/25/23 Doxycycline Hyclate 100 mg PO BID #20 tab 11/26/23 levoFLOXacin [Levaquin*] 500 mg PO DAILY 10 Days #10 tab 11/26/23 - Past Medical/Surgical History Diabetic: No -: HTN, Breast Ca, R lumpectomy -: 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 -: TIA -: UTI -: Chronic systolic congestive heart failure -: hysterectomy, tonsilectomy -: Thomas shoulder, appy, choly -: L elbow -: thomas cataracts -: abdominal surgery with kadiyala Psychosocial/ Personal History: Lives at home alone - Family History Father -: Heart disease Notes: chf Mother -: Cancer Notes: breast cancer - Social History Smoking Status: Former smoker Alcohol use: No CD- Drugs: No Caffeine use: No Place of Residence: Home Review of Systems 10-point ROS is otherwise unremarkable Respiratory: Cough, Shortness of Breath Physical Examination - Vital Signs Blood Pressure: 115/64 Pulse: 93 Respirations: 22 - Physical Exam General: Alert, In no apparent distress, Oriented x3 HEENT: Atraumatic, PERRLA, Mucous membr. moist/pink, EOMI, Sclerae nonicteric Neck: Supple, 2+ carotid pulse no bruit, No LAD, Without JVD or thyroid abnormality Respiratory: Diminished, Expiratory wheezes, Other (On nasal cannula oxygen) Cardiovascular: Regular rate/rhythm, Normal S1 S2 Gastrointestinal: Normal bowel sounds, No tenderness Musculoskeletal: No tenderness Integumentary: No rashes Neurological: Normal gait, Normal speech, Normal strength at 5/5 x4 extr, Normal tone - Studies Laboratory Data (last 24 hrs) 12/10/23 12/10/23 12/10/23 09:00 09:00 09:00 WBC 9.50 Hgb 10.0 L Hct 32.6 L Plt Count 302 PT 13.2 H INR 1.21 APTT 25.2 Sodium 139 Potassium 3.9 BUN 7 Creatinine 0.32 L Glucose 125 H Total Bilirubin 0.6 AST < 10 L ALT < 14 Alkaline Phosphatase 75 Assessment and Plan - Plan Assessment: Acute on chronic hypoxic respiratory failure COPDon home O2/chronic steroids with exacerbation Left-sided pneumonia-recent diagnosis of Mycobacterium Avium NSTEMI Chronic systolic congestive heart failure Plan: Acute on chronic hypoxic respiratory failure COPDon home O2/chronic steroids with exacerbation Continue steroids, inhalers, as needed nebulizer treatments Pulmonology consultation in place Home O2 at 3.5 L, currently requiring 4 L Left-sided pneumonia-recent diagnosis of Mycobacterium Avium Continue rifampin, ethambutol and Zithromax as prescribed by her pharmaceutical analyst Pulmonology consulted NSTEMI Chronic systolic congestive heart failure Cardiology consulted, echocardiogram ordered Does not appear grossly overloaded at this time Possibly demand ischemia, trend troponins monitor on telemetry Continue aspirin, appreciate further input from cardiology DVT PPX: Lovenox Code status: DNR Discharge Plan: Home Plan to discharge in: 72 Hours - Advance Directives Does patient have a Living Will: No Does patient have a Durable POA for Healthcare: No - Code Status/Comfort Care Code Status Assessed: Yes (DNR) Critical Care: No Time Spent Managing Pts Care (In Minutes): 70
--- NOTE | 2023-12-10 15:20 | CON ---
Date of Consultation: 12/10/2023 Reason For Consultation: Elevated troponin. History Of Present Illness: This is a 68-year-old female with history of CHF, COPD, breast cancer, h ypertension, presented with shortness of breath, cough and wheezing, admitted with COPD exacerbation. Denies having chest pain. The troponin was borderline elevated. No history of cardiac disease. N o active chest pain at present time. Past Medical History: As outlined above in HPI. Medications: Refer reconciliation sheet for detailed list. Allergies: PENICILLIN, CODEINE, HYDROCODONE, MORPHINE. Family History: No premature coronary artery disease or cancer. Social History: She does not drink, use any drugs. She is a smoker. Review of Systems: All systems reviewed are negative except as mentioned in HPI. Physical Examination: Vital Signs: Reviewed. Head and Neck: Pupils are equal, reactive to light. Intact eye movements. No JVD. No cervical lym phadenopathy. Neck is supple. Thyroid is not enlarged. Lungs: Clear to auscultation bilaterally. No rhonchi, wheezing, or crackles. No accessory muscle u se. Decreased breathing sounds bilaterally is present. Heart: Regular rate and rhythm. No extra sounds. Abdomen: Soft, nontender. Bowel sounds positive. No organomegaly. No masses or hernia. No rigidi ty or rebound. Extremities: No edema, clubbing, cyanosis. Intact pulses. Skin: No rash. Neurologic: Alert, awake, and oriented x3. No acute focal deficits appreciated. Investigations: BUN 7, creatinine 0.32. Troponin 101 and NT-proBNP is 868. Hemoglobin is 10. Assessment/recommendations: 1.Elevated troponin. No chest pain. This could be demand ischemia. However, she has multiple risk factor to suggest possibility of significant coronary artery disease. Start aspirin. Trend troponi n. If it continues to rise, then start the patient on heparin. If troponin remains in the low level s, then plan for a Lexiscan nuclear stress test on Wednesday and an echo. 2.Elevated NT-proBNP. Obtain an echo. 3.Chronic obstructive pulmonary disease exacerbation, on antibiotics and steroids, to continue. 4.Hypertension. Blood pressure is controlled. Continue current therapy. SR/MODL Voice ID: [id number] Report ID: [id number]
[2023-12-10] MEDS: ENOXAPARIN 40 MG/0.4 ML SQ SCH (15:52)
[2023-12-10] MEDS: DULERA 200/5 (MOMETASONE/FORMOTEROL) INHALER IH SCH (18:22)
[2023-12-10] MEDS ORDERED: VANCOMYCIN 1 GM in NA CHLORIDE 0.9% 250 ML IVPB SCH (19:00)
[2023-12-10] MEDS: VANCOMYCIN 750 MG in NA CHLORIDE 0.9% 150 ML IVPB SCH (20:00)
[2023-12-10] MEDS: IPRATROPIUM BROM 0.5MG/2.5ML NEB SCH (20:33)
[2023-12-10] MEDS: ARFORMOTEROL TARTRATE 15 MCG/2 ML VIAL.NEB NEB SCH (20:33)
--- NOTE | 2023-12-10 20:37 | P.CNS ---
Date of Consult: 12/10/23 Reason for Consult: Progressive left upper lobe pneumonia Chief Complaint: COPD exacerbation, NSTEMI, pneumonia History of Present Illness: Patient is 68 years of age well-known to me she has been progressively declining was recently hospitalized discharge has been running persistent fever at home despite high doses of levofloxacin and doxycycline patient called me this morning that she got worse advised her to come to the emergency room recently underwent a bronchoscopy to nonresolving pneumonia and left upper lobe location I started her on Mycobacterium AVM therapy Allergies Penicillins Allergy (Severe, Verified 11/25/23 08:00) Itching/Hives/Rash codeine Adverse Reaction (Verified 11/25/23 08:00) VOMITING hydrocodone Adverse Reaction (Verified 11/25/23 08:00) Nausea/Vomiting morphine Adverse Reaction (Verified 11/25/23 08:00) VOMITING Home Medications: Metoprolol Succinate 50 mg PO BID 07/20/18 Spironolactone [Aldactone] 25 mg PO DAILY 09/11/21 Albuterol Inhaler [Ventolin Inhaler*] 2 inh IH Q6H PRN 03/05/23 Aspirin [Aspirin Regimen] 81 mg PO DAILY 03/05/23 Fluticasone/Umeclidin/Vilanter [Trelegy Ellipta 100-62.5-25] 1 each IH DAILY 03/05/23 Azithromycin [Zithromax] 1 tab PO DAILY 12/10/23 Ethambutol HCl 1 tab PO DAILY 12/10/23 Ipratropium [place] 2.5 ml NEB QID PRN 12/10/23 predniSONE [Deltasone*] 1 tab PO DAILY 12/10/23 rifAMPin [Rifampin] 2 cap PO DAILY 12/10/23 - Past Medical/Surgical History Diabetic: No -: HTN, Breast Ca, R lumpectomy -: 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 -: TIA -: UTI -: Chronic systolic congestive heart failure -: hysterectomy, tonsilectomy -: Thomas shoulder, appy, choly -: L elbow -: thomas cataracts -: abdominal surgery with kadiyala Psychosocial/ Personal History: Lives at home alone - Family History Father Medical History: Heart disease Notes: chf Mother Medical History: Cancer Notes: breast cancer - Social History Smoking Status: Current every day smoker Alcohol use: No CD- Drugs: No Caffeine use: No Place of Residence: Home Review of Systems 10-point ROS is otherwise unremarkable General: Weakness Respiratory: Cough, Shortness of Breath Physical Examination Temp Pulse Resp BP Pulse Ox 97.5 F 107 H 18 106/53 L 99 12/10/23 20:00 12/10/23 20:00 12/10/23 20:00 12/10/23 20:00 12/10/23 20:00 General: Alert, In no apparent distress, Oriented x3 Respiratory: Crackles/rales (Crackles in the left upper lobe) Cardiovascular: No edema, Regular rate/rhythm, Normal S1 S2, Abnormal S3 Laboratory Data (last 24 hrs) 12/10/23 12/10/23 12/10/23 09:00 09:00 09:00 WBC 9.50 Hgb 10.0 L Hct 32.6 L Plt Count 302 PT 13.2 H INR 1.21 APTT 25.2 Sodium 139 Potassium 3.9 BUN 7 Creatinine 0.32 L Glucose 125 H Total Bilirubin 0.6 AST < 10 L ALT < 14 Alkaline Phosphatase 75 - Problems (1) Pneumonia Current Visit: Yes Status: Acute Plan: Patient is 68 years of age admitted with progressive left upper lobe pneumonia unresponsive to levofloxacin and doxycycline recent bronchoscopy awaiting culture results AFB positive was treated for MAC infection will start patient on meropenem and vancomycin in addition to MAC therapy patient also has a non- STEMI has a normal white count chest x-ray reviewed will order sputum cultures again also has a non-STEMI most likely from demand ischemia overall prognosis poor Qualifiers: Pneumonia type: due to unspecified organism Laterality: left Lung location: upper lobe of lung Qualified Code(s): J18.9 - Pneumonia, unspecified organism (2) Congestive heart failure (CHF) Current Visit: Yes Status: Acute Plan: Previous echo showed severely depressed ejection fraction patient is on diuretic blood pressure oxygenation satisfactory Qualifiers: Heart failure type: systolic
[2023-12-10] MEDS: ETHAMBUTOL HCL 400 MG TAB PO SCH (21:00)
[2023-12-10] MEDS ORDERED: predniSONE 20 MG TAB PO SCH (21:00)
[2023-12-10] MEDS: Meropenem 500 MG in NA CHLORIDE 0.9% 100 ML IV SCH (21:22)
[2023-12-10] MEDS: METOPROLOL XL 50 MG TAB PO SCH (21:23)
[2023-12-10] MEDS: predniSONE 10 MG TAB PO SCH (21:23)
[2023-12-10] MEDS: VANCOMYCIN 500 MG/VIAL ONE (22:27)
[2023-12-10] MEDS: NA CHLORIDE 0.9% 250 ML ONE (22:42)
[2023-12-10] MEDS: WATER FOR INJ,STERILE 20 ML ONE (22:42)
[2023-12-11 06:38] LABS: Absolute Eosinophils 0.1 K/uL (0-0.5); Absolute Lymphocytes (CBC) 0.6 K/uL (0.7-4.9); Absolute Monocytes 0.6 K/uL (0.1-1.3); Absolute Neutrophil 2.8 K/uL (1.8-8.0); Basophils % 0.5 % (0-1.3); Eosinophils % 2.5 % (0-4.4); Hematocrit 24.7 % (36.0-45.0); Hemoglobin 7.8 g/dL (12.0-15.0); Lymphocytes % 14.8 % (15.3-44.8); MCH 27.6 pg (27.0-35.0); MCHC 31.6 g/dL (32.0-36.0); MCV 87.5 fL (80-100); MPV 8.5 fL (7.6-11.3); Monocytes % 13.9 % (3.3-12.3); Neutrophils % 68.3 % (41.7-73.7); Nucleated Red Blood Cells % 0.1 % (0-0); Platelets 209 thou/uL (152-406); RBC Red Blood Cell Count 2.82 M/uL (3.86-4.86); Red Cell Distribution Width 15.1 % (12.1-15.2)
[2023-12-11 06:51] LABS: Albumin 1.3 g/dL (3.4-5.0); Albumin/Globulin Ratio 0.4 (1.1-1.8); Alkaline Phosphatase 46 U/L (45-117); Anion Gap 1.3 mEq/L (5.0-15.0); BUN Blood Urea Nitrogen 6 mg/dL (7-18); Bicarbonate 37 mEq/L (21-32); Bilirubin Total 0.2 mg/dL (0.2-1.0); Globulin 3.1 g/dL (2.3-3.5); Glucose Level 81 mg/dL (74-106); Potassium 3.3 mEq/L (3.5-5.1); Protein, Total 4.4 g/dL (6.4-8.2); Sodium Level 145 mEq/L (136-145)
[2023-12-11 06:52] LABS: ALT/SGPT < 14 U/L (13-56); AST/SGOT < 10 U/L (15-37); Glomerular Filtration Rate 121 ml/min (=/>90)
[2023-12-11] MEDS: SPIRONOLACTONE 25 MG TABLET PO SCH (07:58)
[2023-12-11] MEDS: ASPIRIN EC 81 MG TAB PO SCH (07:58)
[2023-12-11] MEDS: AZITHROMYCIN 250 MG TAB PO SCH (07:59)
[2023-12-11] MEDS: POTASSIUM CL SA 10 MEQ TAB PO ONE ×2 (08:01→15:47)
[2023-12-11] MEDS ORDERED: ALBUTEROL INHALER 200 PUFF/6.7 GM IH PRN (09:14)
[2023-12-11] MEDS: VANCOMYCIN 750 MG in NA CHLORIDE 0.9% 150 ML IVPB SCH (13:34)
[2023-12-11] MEDS: ALBUTEROL INHALER 200 PUFF/6.7 GM IH PRN (14:04)
--- NOTE | 2023-12-11 15:05 | P.PN ---
Date of Service: 12/11/23 Subjective: Feels breathing is about the same Denies chest pain No acute events overnight ROS: 10 point ROS as noted above, otherwise negative Physical exam GEN: Alert, oriented, NAD HEENT: Normal conjunctiva, sclera anicteric CV: Regular rate and rhythm, no edema Pulm: Nonlabored respirations on nasal cannula, expiratory wheezing, diminished ABD: Soft, nontender, nondistended MSK: No joint tenderness Integumentary: No rashes Neuro: Normal speech, normal affect Vitals reviewed Assessment: Acute on chronic hypoxic respiratory failure COPDon home O2/chronic steroids with exacerbation Left-sided pneumonia-recent diagnosis of Mycobacterium Avium NSTEMI Chronic systolic congestive heart failure Plan: Acute on chronic hypoxic respiratory failure COPDon home O2/chronic steroids with exacerbation Continue steroids, inhalers, as needed nebulizer treatments Pulmonology consultation in place Home O2 at 3.5 L, currently requiring 4 L Left-sided pneumonia-recent diagnosis of Mycobacterium Avium Continue rifampin, ethambutol and Zithromax as prescribed by her automotive fleet supervisor Pulmonology consulted-added IV Merrem/vancomycin Additional sputum cultures ordered including AFB NSTEMI Chronic systolic congestive heart failure Cardiology consulted, echocardiogram ordered Does not appear grossly overloaded at this time Possibly demand ischemia, troponins trended down Continue aspirin, appreciate further input from cardiology Per cardiology likely stress test Wednesday DVT PPX: Lovenox Code status: DNR Discharge Plan: Home Plan to discharge in: 72 Hours Time Spent Managing Pts Care (In Minutes): 35
[2023-12-11] MEDS ORDERED: Meropenem 500 MG in NA CHLORIDE 0.9% 100 ML IV SCH (18:51)
--- NOTE | 2023-12-11 19:15 | P.PN ---
Subjective Date of Service: 12/11/23 Chief Complaint: COPD exacerbation, NSTEMI, pneumonia Patient has been complaining of worsening dyspnea no change since yesterday Review of Systems General: Weakness Respiratory: Cough, Shortness of Breath Physical Examination - Vital Signs Temperature: 98.1 F Blood Pressure: 118/60 Pulse: 96 Respirations: 18 Pulse Ox (%): 96 - Physical Exam General: Alert, Moderate distress Respiratory: Clear to auscultation bilaterally, Diminished, Expiratory wheezes Cardiovascular: No edema, Regular rate/rhythm, Normal S1 S2 Assessment And Plan - Current Problems (Diagnosis) (1) Pneumonia Current Visit: Yes Status: Acute Plan: Patient admitted with left upper lobe pneumonia and non-STEMI white count is normal cultures are negative continue with present antibiotic Qualifiers: Pneumonia type: due to unspecified organism Laterality: left Lung location: upper lobe of lung Qualified Code(s): J18.9 - Pneumonia, unspecified organism (2) Congestive heart failure (CHF) Current Visit: Yes Status: Acute Plan: Previous echo showed severely depressed ejection fraction patient is on diuretic blood pressure oxygenation satisfactory Qualifiers: Heart failure type: systolic (3) COPD with exacerbation Current Visit: Yes Status: Acute Plan: Patient has terminal COPD complaining of worsening dyspnea will try high flow oxygen schedule nebulizer increase the dose of prednisone
[2023-12-11] MEDS: predniSONE 20 MG TAB PO SCH (21:02)
[2023-12-12] MEDS: ALBUTEROL 2.5 MG/3 ML NEB SOL NEB SCH (02:24)
[2023-12-12 06:54] LABS: Absolute Eosinophils 0.1 K/uL (0-0.5); Absolute Lymphocytes (CBC) 0.6 K/uL (0.7-4.9); Absolute Monocytes 0.5 K/uL (0.1-1.3); Absolute Neutrophil 3.8 K/uL (1.8-8.0); Basophils % 0.7 % (0-1.3); Eosinophils % 1.1 % (0-4.4); Hematocrit 28.8 % (36.0-45.0); Hemoglobin 9.1 g/dL (12.0-15.0); Lymphocytes % 12.7 % (15.3-44.8); MCH 27.4 pg (27.0-35.0); MCHC 31.7 g/dL (32.0-36.0); MCV 86.7 fL (80-100); MPV 8.8 fL (7.6-11.3); Monocytes % 10.8 % (3.3-12.3); Neutrophils % 74.7 % (41.7-73.7); Platelets 254 thou/uL (152-406); RBC Red Blood Cell Count 3.33 M/uL (3.86-4.86); Red Cell Distribution Width 15.1 % (12.1-15.2)
--- NOTE | 2023-12-12 07:03 | RAD REPORT ---
EXAM DESCRIPTION: RAD - Chest Single View - 12/12/2023 6:30 am CLINICAL HISTORY: MAURA pneumonia COMPARISON: Chest Single View dated 12/10/2023; Chest Pa And Lat (2 Views) dated 11/16/2023; Chest Pa And Lat (2 Views) dated 09/28/2023; Chest Single View dated 09/05/2023; Chest Abdomen Pelvis W Cont date d 02/23/2023 FINDINGS: Lines: None. Lungs: Mixed cavitary in consolidative opacity in left upper lung is unchanged. Question some mild in crease in right basilar airspace opacities. Hyperinflated lungs. Pleural: No significant pleural effusions or pneumothorax. Cardiac: The heart size is within normal limits. Mediastinum: Within normal limits. Bones: No acute fractures. Other: Right breast surgical clips. Battery pack overlies the left hemithorax. IMPRESSION: Cavitary process in left upper lobe is similar and likely reflects pneumonia given the t clay course of development. Mild worsened aeration of the right lung base could reflect some early dev eloping airspace disease as well.
[2023-12-12 10:00] LABS: Albumin 1.9 g/dL (3.4-5.0); Albumin/Globulin Ratio 0.4 (1.1-1.8); Alkaline Phosphatase 73 U/L (45-117); BUN Blood Urea Nitrogen 4 mg/dL (7-18); Bicarbonate 43 mEq/L (21-32); Bilirubin Total 0.5 mg/dL (0.2-1.0); Ferritin 379.5 ng/mL (8-388); Globulin 4.5 g/dL (2.3-3.5); Glomerular Filtration Rate 108 ml/min (=/>90); Glucose Level 171 mg/dL (74-106); Protein, Total 6.4 g/dL (6.4-8.2); Sodium Level 140 mEq/L (136-145); Transferrin 118 mg/dL (200-360)
[2023-12-12 10:01] LABS: ALT/SGPT < 14 U/L (13-56); AST/SGOT < 10 U/L (15-37)
--- NOTE | 2023-12-12 13:33 | EKG ---
Test Date: 2023-12-10 Test Time: 08:47:30 Manager Fine Dining: SALLY MEASUREMENT RESULTS: Intervals: Rate: 116 [place]: 134 QRSD: 84 QT: 318 QTc: 442 [place]: P: 84 [place]: 134 QRS: 55 T: 99 INTERPRETIVE STATEMENTS: Sinus tachycardia Otherwise normal ECG Compared to ECG 11/25/2023 08:21:56 No significant changes Electronically Signed On 12-12-23 13:28:09 CDT by Prashant Severino
--- NOTE | 2023-12-12 13:51 | P.PN ---
Date of Service: 12/12/23 Subjective: Awake and oriented feeling uncomfortable currently on home O2 2 LNC ROS: 10 point ROS as noted above, otherwise negative Physical exam GEN: Alert and oriented x3, NAD HEENT: Normal conjunctiva, sclera anicteric CV: Sinus tachycardia, S1 S2 present, no edema Pulm: Nonlabored respirations on 2 L nasal cannula, expiratory wheezing, diminished ABD: Soft and benign on palpation, hypoactive bowel sounds, ND/NT MSK: No joint tenderness, 2+ peripheral pulses Integumentary: No rashes Neuro: Normal speech, normal affect Vitals reviewed Assessment: Acute on chronic hypoxic respiratory failure COPDon home O2/chronic steroids with exacerbation Left-sided pneumonia-recent diagnosis of Mycobacterium Avium NSTEMI Chronic systolic congestive heart failure Plan: Acute on chronic hypoxic respiratory failure COPDon home O2/chronic steroids with exacerbation Continue steroids, inhalers, as needed nebulizer treatments Pulmonology consultation in place Home O2 at 2 L Left-sided pneumonia-recent diagnosis of Mycobacterium Avium Continue Vancomycin, rifampin, merrem, ethambutol, azithromycin as prescribed by her operator automated process Pulmonology consulted-added IV Merrem/vancomycin Additional sputum cultures ordered including AFB NSTEMI Chronic systolic congestive heart failure Cardiology consulted, echocardiogram ordered Does not appear grossly overloaded at this time Possibly demand ischemia, troponins trended down Continue aspirin Per cardiology likely stress test Wednesday DVT PPX: Lovenox Code status: DNR Discharge Plan: Home Plan to discharge in: 72 Hours
[2023-12-12] MEDS: VANCOMYCIN 1 GM in NA CHLORIDE 0.9% 250 ML IVPB SCH (14:10)
--- NOTE | 2023-12-12 18:29 | PN ---
Date of Progress Note: 12/12/2023 Subjective: Seen at bedside. Gradually improving. Breathing status is improving. Review of Systems: On and off chest pain and shortness of breath. No nausea, vomiting, or diarrhea. No abdominal pain. No dysuria, polyuria, or urinary urgency. All other systems were reviewed, they were negative. Physical Examination: Vital Signs: Reviewed. Head and Neck: Pupils are equal, reactive to light. Intact eye movements. No JVD. No cervical lym phadenopathy. Neck is supple. Thyroid is not enlarged. Lungs: Decreased breathing sounds bilaterally. No accessory muscle use or muscle retraction. Heart: Regular rate and rhythm. No extra sounds. Abdomen: Soft, nontender. Bowel sounds positive. No organomegaly. No masses or hernia. No rigidi ty or rebound. Extremities: No edema, clubbing, or cyanosis. Intact pulses. Skin: No rash. No nodule. Neurologic: Alert, awake, oriented x3. No acute focal deficits appreciated. Investigations: Troponins trending down. Last result was 66. BUN 4, creatinine 0.4, and hemoglobin is 9.1. Assessment And Recommendation: 1.Acute respiratory failure due to chronic obstructive pulmonary disease exacerbation, improving gra dually. 2.Elevated troponin, needs a stress test. If her respiratory status is better, to obtain stress sada t tomorrow morning. Echo showed normal ejection fraction. 3.Elevated NT-proBNP with normal ejection fraction. There is diastolic dysfunction, but she is not fluid overloaded. Low-salt diet and monitor. 4.Hypertension. Blood pressure is controlled. SR/MODL Voice ID: [id number] Report ID: [id number]
[2023-12-13] MEDS ORDERED: VANCOMYCIN 1 GM in NA CHLORIDE 0.9% 250 ML IVPB SCH (01:00)
--- NOTE | 2023-12-13 06:43 | P.PN ---
Date of Service: 12/13/23 Subjective: Awake awaiting the stress test this AM continues on 2 LNC no new complaints stress test positive Heart cath in the AM ROS: 10 point ROS as noted above, otherwise negative Physical exam GEN: Alert and oriented x3, NAD HEENT: Normal conjunctiva, sclera anicteric CV: Sinus tachycardia, S1 S2 present, no edema Pulm: Nonlabored respirations on 2 L nasal cannula, expiratory wheezing, diminished ABD: Soft and benign on palpation, bowel sounds present, ND/NT MSK: No joint tenderness, 2+ peripheral pulses Integumentary: No rashes Neuro: Normal speech, normal affect Vitals reviewed Assessment: Acute on chronic hypoxic respiratory failure COPDon home O2/chronic steroids with exacerbation Left-sided pneumonia-recent diagnosis of Mycobacterium Avium JOSUE NSTEMI Chronic systolic congestive heart failure Plan: Acute on chronic hypoxic respiratory failure COPDon home O2/chronic steroids with exacerbation Continue steroids, inhalers, as needed nebulizer treatments Pulmonology consultation in place Home O2 at 2 L Left-sided pneumonia-recent diagnosis of Mycobacterium Avium Continue Vancomycin, rifampin, merrem, ethambutol, azithromycin as prescribed by her missile tracking technician Pulmonology consulted-added IV Merrem/vancomycin Additional sputum cultures ordered including AFB JOSUE Iron IV infusions Iron 20 NSTEMI Chronic systolic congestive heart failure Cardiology consulted echocardiogram reports " normal left ventricular ejection fraction 60 to 65%, normal wall motion, grade 1 diastolic dysfunction, mild tricuspid regurgitation Does not appear grossly overloaded at this time troponins trended down Continue aspirin Stress test reports "Anterior wall mid segment and probable small apical areas of ischemia." Likely heart cath in the a.m. DVT PPX: Lovenox Code status: DNR Discharge Plan: Home Plan to discharge in: 72 Hours
--- NOTE | 2023-12-13 06:52 | ECHO ---
HEIGHT: 5 ft 4 in WEIGHT: 94 lb 0 oz DATE OF STUDY: 12/10/[address]: Abraham Bland NP 2-DIMENSIONAL: YES M.MODE: YES DOPPLER: YES COLOR FLOW: YES TDS: PORTABLE: YES DEFINITY: BUBBLE STUDY: DIAGNOSIS: ELEVATED TROPONIN CARDIAC HISTORY: CATHERIZATION: NO SURGERY: NO PROSTHETIC VALVE: NO PACEMAKER: YES MEASUREMENTS (cm) DIASTOLIC (NORMALS) SYSTOLIC (NORMALS) IVSd 1.0 (0.6-1.2) LA Diam 2.3 (1.9-4.0) LVEF 60-65% LVIDd 3.4 (3.5-5.7) LVIDs 2.2 (2.0-3.5) %FS 37% LVPWd 1.1 (0.6-1.2) Ao Diam 2.1 (2.0-3.7) 2 DIMENSIONAL ASSESSMENT: RIGHT ATRIUM: NORMAL LEFT ATRIUM: NORMAL RIGHT VENTRICLE: NORMAL LEFT VENTRICLE: NORMAL TRICUSPID VALVE: MILD TRICUSPID REGURGITATION MITRAL VALVE: MILDLY MITRAL ANNULAR CALCIFICATION PULMONIC VALVE: NORMAL AORTIC VALVE: NORMAL PERICARDIAL EFFUSION: NONE AORTIC ROOT: NORMAL LEFT VENTRICULAR WALL MOTION: NORMAL DOPPLER/COLOR FLOW: SEE BELOW COMMENTS: 1. NORMAL LEFT VENTRICULAR EJECTION FRACTION 60-65% 2. NORMAL WALL MOTION 3. GRADE I DIASTOLIC DYSFUNCTION 4. MILD TRICUSPID REGURGITATION TECHNOLOGIST: GWENDOLYN BARONE
[2023-12-13 06:59] LABS: Absolute Eosinophils 0.1 K/uL (0-0.5); Absolute Lymphocytes (CBC) 0.6 K/uL (0.7-4.9); Absolute Monocytes 0.5 K/uL (0.1-1.3); Absolute Neutrophil 4.3 K/uL (1.8-8.0); Basophils % 0.6 % (0-1.3); Eosinophils % 1.7 % (0-4.4); Hematocrit 30.9 % (36.0-45.0); Hemoglobin 9.6 g/dL (12.0-15.0); Lymphocytes % 10.8 % (15.3-44.8); MCH 26.8 pg (27.0-35.0); MCV 86.6 fL (80-100); MPV 8.9 fL (7.6-11.3); Monocytes % 9.3 % (3.3-12.3); Neutrophils % 77.6 % (41.7-73.7); Nucleated Red Blood Cells % 0.1 % (0-0); Platelets 264 thou/uL (152-406); RBC Red Blood Cell Count 3.56 M/uL (3.86-4.86); Red Cell Distribution Width 15.3 % (12.1-15.2)
[2023-12-13 07:18] LABS: Albumin 1.8 g/dL (3.4-5.0); Albumin/Globulin Ratio 0.4 (1.1-1.8); Alkaline Phosphatase 63 U/L (45-117); Anion Gap 3.3 mEq/L (5.0-15.0); BUN Blood Urea Nitrogen 7 mg/dL (7-18); Bicarbonate 42 mEq/L (21-32); Bilirubin Total 0.3 mg/dL (0.2-1.0); Globulin 4.2 g/dL (2.3-3.5); Glomerular Filtration Rate 116 ml/min (=/>90); Glucose Level 95 mg/dL (74-106); Potassium 4.3 mEq/L (3.5-5.1); Sodium Level 142 mEq/L (136-145)
[2023-12-13 07:19] LABS: ALT/SGPT < 14 U/L (13-56); AST/SGOT < 10 U/L (15-37)
[2023-12-13] MEDS ORDERED: REGADENOSON 0.4 MG/5 ML SYR IV ONE (09:13)
--- NOTE | 2023-12-13 12:25 | P.PN ---
Subjective Date of Service: 12/13/23 Chief Complaint: Left upper lobe pneumonia No change in patient's condition still continues to complain of dyspnea s/p stress test Review of Systems General: Weakness Respiratory: Shortness of Breath Physical Examination - Vital Signs Temperature: 96.7 F Blood Pressure: 126/58 Pulse: 91 Respirations: 18 Pulse Ox (%): 99 - Physical Exam General: Alert, Oriented x3 Respiratory: Clear to auscultation bilaterally, Diminished Cardiovascular: No edema, Regular rate/rhythm Assessment And Plan - Current Problems (Diagnosis) (1) Pneumonia Current Visit: Yes Status: Acute Plan: Left upper lobe pneumonia labs chemistries all reviewed white count is normal blood cultures are also negative patient unable to expectorate any sputum and final bronchoscopy culture reports dose of prednisone to 10 mg twice a day no change in her antibiotics for now Qualifiers: Pneumonia type: due to unspecified organism Laterality: left Lung location: upper lobe of lung Qualified Code(s): J18.9 - Pneumonia, unspecified organism (2) Congestive heart failure (CHF) Current Visit: Yes Status: Acute Plan: Recent echocardiogram shows normal left ventricular ejection fraction Qualifiers: Heart failure type: systolic (3) COPD with exacerbation Current Visit: Yes Status: Acute Plan: COPD appears to have stabilized continue with bronchodilators
--- NOTE | 2023-12-13 13:22 | RAD REPORT ---
EXAM DESCRIPTION: NM - Rest Stress Cardiac Imaging - 12/13/2023 10:57 am CLINICAL HISTORY: CP Chest pain. COMPARISON: No comparisons TECHNIQUE: The patient was administered approximately 9.8 mCi of Tc 99m Sestamibi prior to resting S PECT imaging of the heart. The patient was then administered approximately 30.4 mCi of Tc 99m Sestami bi following exercise or pharmacologic stress. Multiplanar SPECT images were reviewed. FINDINGS: Pronounced splanchnic uptake both on the rest and stress images limits evaluation of the i nferior wall. Anterior wall mid segment reversible defect, suggesting ischemia. There may be a small reversible def ect at the apex as well. No fixed defect is seen to suggest hibernating myocardium or scarred myocard ium. Fixed defect along the apical segment anterior wall suggesting a remote infarct. Fixed defect along t he septum and inferior wall, could be artifactual, or related to areas of infarct as well. The end diastolic volume is 70 ml, the end systolic volume is 34 ml, and the ejection fraction is 52 %. IMPRESSION: Anterior wall mid segment and probable small apical areas of ischemia. Fixed defect along the apical segment anterior wall suggesting remote infarct. Fixed defects along th e septum and inferior wall, could be artifactual, or related to areas of infarct as well. Normal left ventricular ejection fraction, 52%.
--- NOTE | 2023-12-13 14:42 | TREADPHA ---
DX: CHEST PAIN Date of Study: 12/13/2023 Ht: 5' 4 " Wt: 94 lb 0 oz Consulting Physician: COLLIN MEDICATIONS: PROVENTIL, BROVANVA, ASPIRIN, LOVENOX, MYAMBUTOL, ATROVENT, TOPROL XL, ZOFRAN, DELTASONE, RIFADIN, ALDACTONE, VANCOMYCIN HISTORY: 68 YEAR OLD FEMALE WITH COMPLAINTS OF CHEST PAIN. HISTORY OF CHRONIC OBSTRUCTIVE PULMONARY DISEASE, CONGESTIVE HEART FAILURE, PNEUMONIA, HOME OXYGEN DEPENDENT. PHYSICIAL EXAMINATION: RESTING B.P.: 121/61 RESTING H.R.: 110 RESTING EKG: NORMAL SINUS RHYTHM WITH LEFT VENTRICULAR HYPERTROPHY PROTOCOL: PHARMACOLOGIC EXERCISE TIME: 3:30 B.P. AT [place] STRESS: 128/59 IMPRESSION: LEXISCAN INJECTED. CARDIOLITE INJECTED - SEE NUCLEAR MEDICINE REPORT. MILD CHEST PAIN COMPLAINT. NO VENTRICULAR TACHYCARDIA, SUPRAVENTRICULAR TACHYCARDIA, OR ARRHYTHMIAS NOTED. TOLERATED PROCEDURE WELL. NO ELECTROCARDIOGRAM CHANGES OF ISCHEMIA WITH LEXISCAN.
--- NOTE | 2023-12-13 21:23 | PN ---
Date of Progress Note: 12/13/2023 Subjective: Seen at the bedside. Doing clinically well. Her breathing is better. No further chest pain. Stress test was done this morning and was positive. Review of Systems: No active chest pain at the present time. No nausea, vomiting, diarrhea. No abdominal pain. No dys uria, polyuria, or urgency. All other systems reviewed and negative. Physical Examination: Vital Signs: Reviewed. Head and Neck: Pupils are equal, reactive to light. Intact eye movements. No JVD. No cervical lym phadenopathy. Neck is supple. Thyroid is not enlarged. Lungs: Clear to auscultation bilaterally. No rhonchi, wheezing, crackles. No accessory muscle use. Heart: Regular rate and rhythm. No extra sounds. Abdomen: Soft, nontender. Bowel sounds positive. No organomegaly. No masses or hernia. No rigidi ty or rebound. Extremities: No edema, clubbing, cyanosis. Intact pulses. Skin: No rash. Neurologic: Alert, awake, oriented x3. No acute focal deficits appreciated. Investigations: Stress test showed reversible anterior wall ischemia. Assessment/recommendation: 1.Elevated troponin with positive stress test. Plan for coronary angiogram tomorrow. 2.Acute respiratory failure due to chronic obstructive pulmonary disease exacerbation, improving. M uch better now. Continue current management. 3.Hypertension. Blood pressure is controlled. SR/MODL Voice ID: [id number] Report ID: [id number]
[2023-12-13] MEDS: predniSONE 10 MG TAB PO SCH (21:31)
[2023-12-14] MEDS ORDERED: SOD FERRIC GLUC COMPLX/SUCROSE 125 MG in NA CHLORIDE 0.9% 100 ML IV SCH (09:00)
[2023-12-14] MEDS ORDERED: MIDAZOLAM HCL 2 MG/2 ML INJ ONE (10:03)
[2023-12-14] MEDS ORDERED: HEPA 1000U/500MLS 2,000 UNIT/1,000 ML BAG IV ONE (10:03)
[2023-12-14] MEDS ORDERED: ATROPINE SULF 1 MG/10 ML SYR IV ONE (10:03)
[2023-12-14] MEDS ORDERED: FENTANYL CITR 100 MCG/2 ML ONE (10:03)
[2023-12-14] MEDS ORDERED: LIDOCAINE 1% 20 ML MDV ONE (10:03)
[2023-12-14] MEDS ORDERED: HEPARIN 10,000 UNIT/10 ML VIAL IV ONE (10:04)
[2023-12-14] MEDS ORDERED: TICAGRELOR 90 MG TABLET PO ONE (10:04)
[2023-12-14] MEDS ORDERED: ASPIRIN 325 MG TAB ONE (10:04)
[2023-12-14] MEDS ORDERED: HEPARIN 5000 UNIT/ML 1 ML VIAL ONE ×2 (10:04→10:41)
[2023-12-14] MEDS ORDERED: CLOPIDOGREL 75 MG TABLET ONE (10:04)
[2023-12-14] MEDS: NA CHLORIDE 0.9% 500 ML ONE (10:19)
--- NOTE | 2023-12-14 11:14 | P.PN ---
Subjective Date of Service: 12/14/23 Chief Complaint: Left upper lobe pneumonia Subjective: No new changes, No C/O voiced, Tolerating diet, Ambulating, Improving Review of Systems 10-point ROS is otherwise unremarkable Physical Examination - Vital Signs Temperature: 97.7 F Blood Pressure: 119/55 Pulse: 91 Respirations: 17 Pulse Ox (%): 98 - Physical Exam General: Alert, In no apparent distress HEENT: Atraumatic, PERRLA, EOMI Neck: Supple, JVD not distended Respiratory: Clear to auscultation bilaterally, Normal air movement Cardiovascular: Regular rate/rhythm, Normal S1 S2 Gastrointestinal: Normal bowel sounds, No tenderness Musculoskeletal: No tenderness Integumentary: No rashes Neurological: Normal speech, Normal tone, Normal affect Lymphatics: No axilla or inguinal lymphadenopathy - Studies Medications List Reviewed: Yes Assessment And Plan - Current Problems (Diagnosis) (1) CAD (coronary artery disease) Current Visit: Yes Status: Acute Plan: abnormal stress test, followed by coronary angiogram that shows mild CAD continue ASA 81 mg daily continue Liptiro 40 mg daily outpatient follow up with cardiology (2) Congestive heart failure (CHF) Current Visit: Yes Status: Acute Plan: Diastolic in nature, LVEDP 15 mmHg Continue Aldactone Continue Toprol XL Qualifiers: Heart failure type: systolic (3) HTN (hypertension) Current Visit: Yes Status: Acute Plan: Continue Toprol XL
--- NOTE | 2023-12-14 12:22 | OP ---
Date of Procedure: 12/14/2023 Surgeon: Darío Poole Procedures Performed: 1.Left heart catheterization. 2.Selective coronary angiogram. Indication For Procedure: Unstable angina with abnormal stress test. Complications: None. Estimated Blood Loss: Less than 50 cc. Sedation: Sedation time is 20 minutes with 1 of Versed and 25 of fentanyl. Access: Right radial, closed by TR band. Description Of Procedure: After risks, benefits, and alternatives were explained to the patient, the patient agreed to proceed with procedure and signed informed consent. The patient was brought back to the cook house laborer, prepped and draped in sterile fashion. Time-out was performed. Sedation was admini stered. Right radial access, ultrasound-guided micropuncture technique. A 5-[place] 4 catheter was advanced into the LV cavity. LVEDP was obtained. Pullback did not show any gradient. Same cat heter was used for selective coronary angiogram of the left and right coronary systems. At the end o f procedure, catheter was removed over a J-wire. Sheath was removed and TR band was applied. Hemost asis was achieved. The patient was moved back to recovery in stable condition. Findings: 1.Left main is short, normal. 2.LAD, mild luminal irregularities. 3.Left circ, mild luminal irregularities. 4.RCA, proximal 30% disease and mild LI followed by mid to distal 30% disease, then mild LI. 5.LVEDP 15 mmHg. Assessment And Plan: 1.Mild proximal to mid RCA disease. 2.Mildly elevated filling pressure, most likely secondary to diastolic dysfunction. Plan: To continue medical management. VIANNEY/NAYA Voice ID: [id number] Report ID: [id number]
--- NOTE | 2023-12-14 12:35 | P.PN ---
Subjective Date of Service: 12/14/23 Chief Complaint: Left upper lobe pneumonia No change in patient's condition she still continues to complain of dyspnea Review of Systems General: Weakness Respiratory: Shortness of Breath Physical Examination - Vital Signs Temperature: 97.7 F Blood Pressure: 119/55 Pulse: 91 Respirations: 17 Pulse Ox (%): 98 - Physical Exam General: Alert, Oriented x3 Respiratory: Clear to auscultation bilaterally, Diminished Cardiovascular: No edema, Regular rate/rhythm - Studies Medications List Reviewed: Yes Assessment And Plan - Current Problems (Diagnosis) (1) Pneumonia Current Visit: Yes Status: Acute Plan: Patient admitted with left upper lobe pneumonia so far cultures are all negative stable Mycobacterium avium infection continue with triple therapy at home and has already tried levofloxac in and doxycycline for 2 weeks patient's vital signs are stable afebrile Qualifiers: Pneumonia type: due to unspecified organism Laterality: left Lung location: upper lobe of lung Qualified Code(s): J18.9 - Pneumonia, unspecified organism (2) Congestive heart failure (CHF) Current Visit: Yes Status: Acute Plan: Recent echocardiogram shows normal left ventricular ejection fraction Qualifiers: Heart failure type: systolic (3) COPD with exacerbation Current Visit: Yes Status: Acute Plan: COPD appears to have stabilized continue with bronchodilators
--- NOTE | 2023-12-14 12:45 | EKG ---
Test Date: 2023-12-10 Test Time: 08:48:03 Financial Accounting Manager: SALLY MEASUREMENT RESULTS: Intervals: Rate: 113 [place]: 138 QRSD: 86 QT: 326 QTc: 447 [place]: P: 85 CA: 138 QRS: 52 T: 88 INTERPRETIVE STATEMENTS: Sinus tachycardia Otherwise normal ECG Compared to ECG 12/10/2023 08:47:30 No significant changes Electronically Signed On 12-14-23 12:42:01 CDT by Prashant Severino
[2023-12-14 13:34] VITALS: O2SAT 98
--- NOTE | 2023-12-14 14:29 | P.DS ---
Admission Date: 12/10/23 Discharge Date: 12/16/23 Disposition: ROUTINE DISCHARGE Discharge Condition: GOOD Reason for Admission: Left upper lobe pneumonia Brief History of Present Illness: Diagnosis Acute on chronic hypoxic respiratory failure COPDon home O2/chronic steroids with exacerbation Left-sided pneumonia-recent diagnosis of Mycobacterium Avium JOSUE NSTEMI Chronic systolic congestive heart failure HPI 12/10/2023 Patricia Case is a 68-year-old female with history of COPD on chronic steroid/home O2, chronic systolic congestive heart failure, hypertension who was recently diagnosed with Mycobacterium AVM presents to the emergency department with chief complaint of shortness of breath. She reports is been getting progressively worse the past 2 weeks but had an acute worsening this morning of that reason presented to the hospital for evaluation. She was evaluated in the emergency department her labs are significant for a chloride of 95 bicarb of 45 lactic acid 1.0 troponin 101 BNP 868 chest x-ray was performed which shows progressive left lung airspace opacities concerning for pneumonia. Patient was started on rifampin, ethambutol and Zithromax recently by her inspector barrel Dr. Young. Patient be admitted for COPD exacerbation, NSTEMI, pneumonia/Mycobacterium avium. Hospital Course: Patricia Case is a pleasant 68 year old female with a past medical history significant for COPD on chronic steroid/home O2, chronic systolic congestive heart failure, hypertension who was admitted to the [facility] on 12/10/23 for Shortness of breath. Patricia Case presented to the ED with shortness of breath. Dr. Young has managed the antibiotics for current mycobacterium avium. Dr. Poole performed a stress test 12/12 and heart catheterization 12/13 showing mild coronary artery disease. Continue antibiotics set up at home for the mycobacterium avium and Dr. Young will continue management. Follow up with Dr. Young and Dr. Poole for continued heart and lung management. She is on home 2 LNC, tolerating PO diet, blood cultures negative, and ambulating independently. On 12/14/23, Patricia was seen on morning rounds and deemed medically stable for discharge. Patricia was discharged with instructions to schedule follow-up appointments with PCP and Dr. Young. Patricia was provided prescriptions for lipitor and aspirin. The patient and family members were given the opportunity to ask questions and reported no further questions. Furthermore, all questions were answered to the best of my ability. A copy of this discharge summary will be sent to the above providers to facilitate continuity of care. Physical exam GEN: AAO x3, no acute distress HEENT: Normal conjunctiva, sclera anicteric CV: Sinus tachycardia, S1 S2 present, no edema Pulm: Nonlabored respirations on 2 L nasal cannula, expiratory wheezing ABD: Soft and benign on palpation, normal active bowel sounds present, ND/NT MSK: No joint tenderness, 2+ peripheral pulses Integumentary: No rashes Neuro: Normal speech, normal affect Vital Signs/Physical Exam: Temp Pulse Resp BP Pulse Ox 97.7 F 99 H 16 117/48 L 98 12/14/23 12:34 12/14/23 12:50 12/14/23 12:50 12/14/23 12:50 12/14/23 12:34 Laboratory Data at Discharge: WBC 5.60 thou/uL (4.3-10.9) 12/13/23 05:52 Hgb 9.6 g/dL (12.0-15.0) L 12/13/23 05:52 Hct 30.9 % (36.0-45.0) L 12/13/23 05:52 Plt Count 264 thou/uL (152-406) 12/13/23 05:52 PT 13.2 SECONDS (9.4-12.5) H 12/10/23 09:00 INR 1.21 12/10/23 09:00 APTT 25.2 SECONDS (24.3-36.9) 12/10/23 09:00 Sodium 142 mEq/L (136-145) 12/13/23 05:52 Potassium 4.3 mEq/L (3.5-5.1) 12/13/23 05:52 BUN 7 mg/dL (7-18) 12/13/23 05:52 Creatinine 0.29 mg/dL (0.55-1.02) L 12/13/23 05:52 Glucose 95 mg/dL (74-106) 12/13/23 05:52 Magnesium 2.0 mg/dL (1.6-2.4) 12/12/23 09:21 Total Bilirubin 0.3 mg/dL (0.2-1.0) 12/13/23 05:52 AST < 10 U/L (15-37) L 12/13/23 05:52 ALT < 14 U/L (13-56) 12/13/23 05:52 Alkaline Phosphatase 63 U/L (45-117) 12/13/23 05:52 Home Medications: Metoprolol Succinate 50 mg PO BID 07/20/18 Spironolactone [Aldactone*] 25 mg PO DAILY 09/11/21 Albuterol Inhaler [Ventolin Inhaler*] 2 inh IH Q6H PRN 03/05/23 Aspirin [Aspirin Regimen] 81 mg PO DAILY 03/05/23 Fluticasone/Umeclidin/Vilanter [Trelegy Ellipta 100-62.5-25] 1 each IH DAILY 03/05/23 Azithromycin [Zithromax] 1 tab PO DAILY 12/10/23 Ethambutol HCl 1 tab PO DAILY 12/10/23 Ipratropium [place] 2.5 ml NEB QID PRN 12/10/23 predniSONE [Deltasone*] 1 tab PO DAILY 12/10/23 rifAMPin [Rifampin] 2 cap PO DAILY 12/10/23 Atorvastatin Calcium [Lipitor] 40 mg PO BEDTIME 30 Days #30 tab 12/14/23 New Medications: Atorvastatin Calcium [Lipitor] 40 mg PO BEDTIME 30 Days #30 tab Physician Discharge Instructions: Patricia Case presented to the ED with shortness of breath. Dr. Young has managed the antibiotics for your current mycobacterium avium. Dr. Poole performed a stress test 12/12 and heart catheterization 12/13 showing mild coronary artery disease. Please continue your antibiotics at home and Dr. Young will continue management. Please follow up with Dr. Young and Dr. Poole for continued heart and lung management. 1. Please call and schedule a follow-up appointment with your PCP in 3-5 days - Please follow-up with your PCP for medication refills/adjustments 2. Please call and schedule a follow-up appointment with Dr. Young in 3-5 days -antibiotic therapy 3. Please call and schedule a follow-up appointment with Dr. Poole in one week 4. Continue heart healthy diet 5. activity restrictions, do not lift greater than 8 pounds for two days 6. Return to the ED if symptoms worsen New medications Lipitor 40 mg daily Aspirin 81 mg daily continue home antibiotics for the mycobacterium avium. Diet: AHA Activity: Fall precautions Followup: Kaushik Young MD [ACTIVE - CAN ADMIT] - NONE,NONE [Primary Care Provider] -
[2023-12-14 17:06] VITALS: BP 118/59; TEMP 98.8
== END 2023-12-14 17:59 | disposition home or self-care (01) | DRG 193 ==
LOC: ER 08:10 → ERHOLD 10:52 → 4TH 13:26
PROVIDERS: ADMIT Hospitalist; ATTEND Internal Medicine
PROC: 4A023N7 Measurement of Cardiac Sampling and Pressure, Left Heart, Percutaneous Approach (ICD-10-PCS; principal; 2023-12-14)
PROC: B2111ZZ Fluoroscopy of Multiple Coronary Arteries using Low Osmolar Contrast (ICD-10-PCS; 2023-12-14)
DX: J18.9 Pneumonia, unspecified organism (principal); I21.A1 Myocardial infarction type 2; J96.21 Acute and chronic respiratory failure with hypoxia; J44.1 Chronic obstructive pulmonary disease with (acute) exacerbation; I50.22 Chronic systolic (congestive) heart failure; J44.0 Chronic obstructive pulmonary disease with (acute) lower respiratory infection; A31.0 Pulmonary mycobacterial infection; I11.0 Hypertensive heart disease with heart failure; D50.9 Iron deficiency anemia, unspecified; I25.10 Atherosclerotic heart disease of native coronary artery without angina pectoris; R79.89 Other specified abnormal findings of blood chemistry; Z60.2 Problems related to living alone; Z66 Do not resuscitate; Z88.0 Allergy status to penicillin; Z88.5 Allergy status to narcotic agent; Z85.3 Personal history of malignant neoplasm of breast; Z88.8 Allergy status to other drugs, medicaments and biological substances; Z79.82 Long term (current) use of aspirin; Z99.81 Dependence on supplemental oxygen; Z86.73 Personal history of transient ischemic attack (TIA), and cerebral infarction without residual deficits; Z87.891 Personal history of nicotine dependence; Z79.899 Other long term (current) drug therapy; Z90.710 Acquired absence of both cervix and uterus
CPT/HCPCS: 36415; 71045; 76937; 78452; 80053; 80202; 82728; 82947; 83540; 83605; 83735; 83880; 84132; 84466; 84484; 85025; 85610; 85730; 87040; 93005; 93017; 93306; 93458; 94640; 96365; 99152; 99153; 99285; A9500; C1893; J0461; J1644; J1650; J2001; J2250; J2785; J2916; J3010; J3535; J7030; J7040; J7050; J7512; J7605; J7613; J7644; Q9966

== ENCOUNTER 2024-05-16 16:20 | Inpatient (IN) | payer MEDICARE ==
--- NOTE | 2024-05-16 17:22 | RAD REPORT ---
Procedure: Chest Single View HISTORY: Chest pain COMPARISON: March 2023 FINDINGS: Left upper lobe cavitary lesion without significant change. Mild worsening in left lung opacities Right lung appears clear of acute infiltrate. Lungs are hyperaerated. Heart is borderline enlarged. Stimulator device in place. IMPRESSION: Stable left upper lobe cavitary lesion Mild worsening in additional left lung opacities consistent with infection
[2024-05-16 17:39] LABS: Absolute Lymphocytes (CBC) 0.3 K/uL (0.7-4.9); Absolute Monocytes 0.5 K/uL (0.1-1.3); Absolute Neutrophil 8.9 K/uL (1.8-8.0); Basophils % 0.2 % (0-1.3); Eosinophils % 0.4 % (0-4.4); Hematocrit 34.9 % (36.0-45.0); Hemoglobin 11.2 g/dL (12.0-15.0); Lymphocytes % 3.3 % (15.3-44.8); MCH 29.5 pg (27.0-35.0); MCHC 32.2 g/dL (32.0-36.0); MCV 91.4 fL (80-100); MPV 8.6 fL (7.6-11.3); Monocytes % 4.9 % (3.3-12.3); Neutrophils % 91.2 % (41.7-73.7); Nucleated Red Blood Cells % 0.1 % (0-0); Platelets 245 thou/uL (152-406); RBC Red Blood Cell Count 3.81 M/uL (3.86-4.86); Red Cell Distribution Width 14.3 % (12.1-15.2)
[2024-05-16 17:51] LABS: PT Prothrombin Time 12.2 SECONDS (9.4-12.5); PTT, Activated Partial Thromb 26.3 SECONDS (24.3-36.9); Protime INR 1.09
[2024-05-16 17:58] LABS: AST/SGOT 12 U/L (15-37); Albumin 2.4 g/dL (3.4-5.0); Albumin/Globulin Ratio 0.5 (1.1-1.8); Alkaline Phosphatase 66 U/L (45-117); BUN Blood Urea Nitrogen 21 mg/dL (7-18); Bicarbonate 39 mEq/L (21-32); Bilirubin Total 0.4 mg/dL (0.2-1.0); Globulin 5.3 g/dL (2.3-3.5); Glomerular Filtration Rate 99 ml/min (=/>90); Glucose Level 142 mg/dL (74-106); NT PRO-BNP 449 pg/mL (<125); Protein, Total 7.7 g/dL (6.4-8.2); Sodium Level 133 mEq/L (136-145); Troponin High Sensitivity 21.1 pg/mL (<58.9)
[2024-05-16 18:03] LABS: ALT/SGPT < 14 U/L (13-56)
--- NOTE | 2024-05-16 18:45 | EDPHYS ---
Physician Documentation [facility] Name: Patricia Case Age: 69 yrs Sex: Female : 1955 Arrival Date: 05/16/2024 Time: 16:20 Bed 20 Private MD: ED Physician Yusef Bejarano HPI: 05/16 18:36 This 69 yrs old Female presents to ER via Wheelchair with complaints of Shortness Of kb Breath, Chest Pain. 18:36 Pt is a 69 year old female who presents for chest pain, shortness of breath, kb intermittent fever and weakness that started a few weeks ago. States she had a lung infection in December, was sent home on IV antibiotics which completed at the end of January. States she was feeling good and was able to move around like normal for all of February and some of March. States she started having the current symptoms after that and has progressively gotten worse. States she is unable to walk around like normal now due to weakness and shortness of breath. . Historical: - Allergies: 16:32 PENICILLINS (rash); iw - PMHx: 16:32 Hypertensive disorder; Right kidney cyst; Mycobacterium Avium; breast cancer; COPD; iw CHF; Pneumonia; - PSHx: 16:32 Thomas rotator cuff; Elbow; hysterectomy; Appendectomy; cataracts; Cholecystectomy; iw defibrillator; Right arm lumpectomy; right mastectomy; Tonsillectomy; ROS: 18:30 Constitutional: As per HPI kb Exam: 17:00 Constitutional: This is a well developed, well nourished patient who is awake, alert, kb and in no acute distress. Head/Face: Normocephalic, atraumatic. ENT: Moist Mucous membranes Cardiovascular: Tachycardic rate Abdomen/GI: Soft, non-tender. No distention Skin: Warm, dry with normal turgor. Normal color. MS/ Extremity: Pulses equal, no cyanosis. Neurovascular intact. Full, normal range of motion. Neuro: Awake and alert, GCS 15, oriented to person, place, time, and situation. 17:00 ECG was reviewed by the Attending Physician. 17:00 Respiratory: the patient does not display signs of respiratory distress, Respirations: normal, Breath sounds: decreased breath sounds, that are mild, are scattered, Vital Signs: 16:35 BP 124 / 63; Pulse 121; Resp 22 S; Temp 97.8; Pulse Ox 100% on 3.5 lpm NC; Weight 46.72 iw kg; Height 5 ft. 4 in. ; Pain 7/10; 18:00 BP 124 / 72; Pulse 105; Resp 18; Pulse Ox 100% on 3 lpm NC; db 19:30 BP 115 / 91; Pulse 101; Resp 18; Pulse Ox 100% on 3 lpm NC; jb4 20:30 BP 99 / 52; Pulse 96; Resp 16; Pulse Ox 99% on 3 lpm NC; jb4 21:30 BP 97 / 50; Pulse 94; Resp 16; Pulse Ox 100% on 3 lpm NC; jb4 16:35 Body Mass Index 17.68 (46.72 kg, 162.56 cm) iw 16:35 Pain Scale: Adult iw MDM: 16:28 Medical Screening Exam initiated kb 18:43 Differential diagnosis: Bronchitis Chronic Obstructive Pulmonary Disease Myocardial kb Infarction pneumonia. Data reviewed: vital signs, nurses notes. Consideration of Admission/Observation Patient was admitted/placed on observation. Escalation of care including admission/observation considered. Management of patient was discussed with the following: Hospitalist: JESÚS Groves accepts pt for admission under Dr Hardwick. Historians other than the Patient: Daughter/Son: son. External Records Reviewed: Inpatient record: discharge summary from recent admission reviewed. Counseling: I had a detailed discussion with the patient and/or guardian regarding the historical points, exam findings, and any diagnostic results supporting the discharge/admit diagnosis, lab results, radiology results, the need for further work-up and treatment in the hospital. 05/16 16:35 Order name: Blood Culture Adult (2) kb 05/16 16:35 Order name: CBC with Diff; Complete Time: 20:33 kb 05/16 16:35 Order name: CMP; Complete Time: 18:05 kb 05/16 16:35 Order name: Lactate w/ 2H reflex if indic.; Complete Time: 17:59 kb 05/16 16:35 Order name: Protime (+inr); Complete Time: 17:59 kb 05/16 16:35 Order name: Ptt, Activated; Complete Time: 17:59 kb 05/16 16:35 Order name: Urinalysis w/ reflexes; Complete Time: 18:54 kb 05/16 16:35 Order name: Troponin High Sensitivity; Complete Time: 18:05 kb 05/16 16:35 Order name: BNP; Complete Time: 18:05 kb 05/16 20:32 Order name: CBC Smear Scan; Complete Time: 20:33 EDAK 05/16 20:57 Order name: CBC with Automated Diff EDAK 05/16 20:57 Order name: Comprehensive Metabolic Panel EDAK 05/16 20:57 Order name: Creatine Phosphokinase EDAK 05/16 20:57 Order name: Lactate w/ 2H reflex if indic. EDAK 05/16 20:57 Order name: Liver (Hepatic) Function EDAK 05/16 20:57 Order name: Magnesium EDAK 05/16 20:57 Order name: NT PRO-BNP EDAK 05/16 20:57 Order name: Phosphorus EDAK 05/16 20:57 Order name: Thyroid Stimulating Hormone EDAK 05/16 20:57 Order name: Urinalysis w/ reflexes EDAK 05/16 20:57 Order name: Lipid Profile EDAK 05/16 20:57 Order name: Lipid Profile EDAK 05/16 16:35 Order name: Chest Single View XRAY; Complete Time: 17:34 kb 05/16 20:57 Order name: CONS Physician Consult EDAK 05/16 20:57 Order name: Respiratory Therapy Consult [facility] 05/16 16:35 Order name: Cardiac monitoring; Complete Time: 18:13 kb 05/16 16:35 Order name: EKG - Nurse/Tech; Complete Time: 17:32 kb 05/16 16:35 Order name: IV Saline Lock - Large Bore; Complete Time: 17:32 kb 05/16 16:35 Order name: Labs collected and sent; Complete Time: 17:32 kb 05/16 16:35 Order name: O2 Per Protocol; Complete Time: 17:32 kb 05/16 16:35 Order name: O2 Sat Monitoring; Complete Time: 17:32 kb EC:00 Rate is 113 beats/min. Rhythm is regular. QRS [place] is Normal. MI interval is normal at kb 134 msec. QRS interval is normal at 86 msec. QT interval is normal at 433 msec. Administered Medications: 19:27 Drug: levofloxacin IVPB 500 mg 100 ml IVPB once over 60 mins Volume: 100 ml; Route: jb4 IVPB; Infused Over: 60 mins; Site: left forearm; 20:27 Follow up: Response: No adverse reaction; IV Status: Completed infusion; IV Intake: jb4 100ml 19:27 Drug: NS 0.9% IV 500 ml 500 ml IV at 1 bolus once; to be given as a bolus over 30 jb4 minutes Volume: 500 ml; Route: IV; Rate: 1 bolus; Site: left forearm; 19:57 Follow up: Response: No adverse reaction; IV Status: Completed infusion; IV Intake: jb4 500ml Disposition Summary: 05/16/24 18:45 Hospitalization Ordered Notes: Hospitalization Status: Observation kb Provider: Vinh Hardwick Location: Telemetry/MedSurg (observation) kb Condition: Stable kb Problem: new kb Symptoms: are unchanged kb Bed/Room Type: Standard Room Assignment: 401(05/16/24 20:59) kmf Diagnosis - Pneumonia, unspecified organism kb - Weakness kb - UTI/ Urinary tract infection, site not specified kb Forms: - Medication Reconciliation Form kb - SBAR form kb - Leadership Thank You Letter kb Signatures: Dispatcher [employer] EDMS Elana Phillips, CEDRIC-C GLOVE MACHINE OPERATOR-Kimberly Lara, RN KULWINDER Reji Mcadams RN RN jb4 Jena Galarza kmf Corrections: (The following items were deleted from the chart) 16:36 16:35 BLOOD CULTURE*+BA.LAB.BRZ ordered. EDMS EDMS 16:36 16:35 CBC+H.LAB.BRZ ordered. EDMS EDMS 16:36 16:35 COMPREHENSIVE METABOLIC PANEL+C.LAB.BRZ ordered. EDMS EDMS 16:36 16:35 LACTATE+C.LAB.BRZ ordered. EDMS EDMS 16:36 16:35 PROTIME (+INR)+COAG.LAB.BRZ ordered. EDMS EDMS 16:36 16:35 PTT, ACTIVATED+COAG.LAB.BRZ ordered. EDMS EDMS 16:36 16:35 Urinalysis+U.LAB.BRZ ordered. EDMS EDMS 16:36 16:35 Troponin High Sensitivity+C.LAB.BRZ ordered. EDMS EDMS 16:36 16:35 PROBNP+C.LAB.BRZ ordered. EDMS EDMS 16:36 16:36 Chest Single View+RAD.RAD.BRZ ordered. EDMS EDMS 20:59 18:45 kb kmf
--- NOTE | 2024-05-16 18:45 | ER ---
Nurse's Notes [facility] Name: Patricia Case Age: 69 yrs Sex: Female : 1955 Arrival Date: 05/16/2024 Time: 16:20 Bed 20 Private MD: Diagnosis: Pneumonia, unspecified organism;Weakness;UTI/ Urinary tract infection, site not specified Presentation: 05/16 16:31 Chief complaint: Patient states: not feeling well and intermittent fever for a couple iw of weeks , also having chest pain after eating and drinking for a few weeks. 16:31 Method Of Arrival: Wheelchair iw 16:31 Acuity: ELSA 3 iw 16:32 Ebola Screen: No symptoms or risks identified at this time. Initial Sepsis Screen: Does iw the patient meet any 2 criteria? Does the patient have a suspected source of infection?. Risk Assessment: Do you want to hurt yourself or someone else? Patient reports no desire to harm self or others. Onset of symptoms was April 21, 2024. 16:37 Coronavirus screen: Client presents with at least one sign or symptom that may indicate iw coronavirus-19. Historical: - Allergies: 16:32 PENICILLINS (rash); iw - PMHx: 16:32 Hypertensive disorder; Right kidney cyst; Mycobacterium Avium; breast cancer; COPD; iw CHF; Pneumonia; - PSHx: 16:32 Thomas rotator cuff; Elbow; hysterectomy; Appendectomy; cataracts; Cholecystectomy; iw defibrillator; Right arm lumpectomy; right mastectomy; Tonsillectomy; Screenin:14 [facility] ED Fall Risk Assessment (Adult) History of falling in the last 3 months, db including since admission No falls in past 3 months (0 pts) Confusion or Disorientation No (0 pts) Intoxicated or Sedated No (0 pts) Impaired Gait No (0 pts) Mobility Assist Device Used No (0 pt) Altered Elimination No (0 pt) Score/Fall Risk Level 0 - 2 = Low Risk Oriented to surroundings, Maintained a safe environment. 22:06 Abuse screen: Denies threats or abuse. Nutritional screening: No deficits noted. jb4 Tuberculosis screening: No symptoms or risk factors identified. Assessment: 18:14 Reassessment: Patient appears in no apparent distress at this time. Patient and/or db family updated on plan of care and expected duration. Pain level reassessed. Patient is alert, oriented x 3, equal unlabored respirations, skin warm/dry/pink. Reassessment: DENIES PAIN NOW. General: Appears in no apparent distress. comfortable, Behavior is calm, cooperative. Pain: Complains of pain in chest. Cardiovascular: Rhythm is regular. Respiratory: Airway is patent Respiratory effort is even, unlabored, Respiratory pattern is regular, symmetrical, Breath sounds are clear. 19:00 Reassessment: Patient appears in no apparent distress at this time. Patient and/or jb4 family updated on plan of care and expected duration. Pain level reassessed. Patient is alert, oriented x 3, equal unlabored respirations, skin warm/dry/pink. 20:00 Reassessment: Patient appears in no apparent distress at this time. Patient and/or jb4 family updated on plan of care and expected duration. Pain level reassessed. Patient is alert, oriented x 3, equal unlabored respirations, skin warm/dry/pink. 20:54 Reassessment: Patient appears in no apparent distress at this time. Patient and/or jb4 family updated on plan of care and expected duration. Pain level reassessed. Patient is alert, oriented x 3, equal unlabored respirations, skin warm/dry/pink. 22:05 Reassessment: Patient appears in no apparent distress at this time. Patient and/or jb4 family updated on plan of care and expected duration. Pain level reassessed. Patient is alert, oriented x 3, equal unlabored respirations, skin warm/dry/pink. Vital Signs: 16:35 BP 124 / 63; Pulse 121; Resp 22 S; Temp 97.8; Pulse Ox 100% on 3.5 lpm NC; Weight 46.72 iw kg; Height 5 ft. 4 in. ; Pain 7/10; 18:00 BP 124 / 72; Pulse 105; Resp 18; Pulse Ox 100% on 3 lpm NC; db 19:30 BP 115 / 91; Pulse 101; Resp 18; Pulse Ox 100% on 3 lpm NC; jb4 20:30 BP 99 / 52; Pulse 96; Resp 16; Pulse Ox 99% on 3 lpm NC; jb4 21:30 BP 97 / 50; Pulse 94; Resp 16; Pulse Ox 100% on 3 lpm NC; jb4 16:35 Body Mass Index 17.68 (46.72 kg, 162.56 cm) iw 16:35 Pain Scale: Adult iw ED Course: 16:21 Patient arrived in ED. ra3 16:28 Elana Phillips FNP-C is PHCP. kb 16:28 Yusef Bejarano MD is Attending Physician. kb 16:32 Triage completed. iw 17:10 Chest Single View XRAY In Process Unspecified. EDMS 17:20 Initial lab(s) drawn, by me, sent to lab. First set of blood cultures drawn by me. iw Inserted saline lock: 22 gauge in left wrist, using aseptic technique. Blood collected. Flushed with 10 mL NS. 17:32 Kimberly Forman, RN is Primary Nurse. iw 18:05 Manda Faith, RN is Primary Nurse. db 18:14 Patient has correct armband on for positive identification. Bed in low position. Call db light in reach. Side rails up X 1. Client placed on continuous cardiac and pulse oximetry monitoring. NIBP monitoring applied. otter trawler boatswain on. Pulse ox on. NIBP on. Pillow given. 18:45 Vinh Hardwick is Hospitalizing Provider. kb 20:54 Reji Mcadams, RN is Primary Nurse. jb4 22:06 No provider procedures requiring assistance completed. Patient admitted, IV remains in jb4 place. 22:06 Provided Education on: need for admit. jb4 Administered Medications: 19:27 Drug: levofloxacin IVPB 500 mg 100 ml IVPB once over 60 mins Volume: 100 ml; Route: jb4 IVPB; Infused Over: 60 mins; Site: left forearm; 20:27 Follow up: Response: No adverse reaction; IV Status: Completed infusion; IV Intake: jb4 100ml 19:27 Drug: NS 0.9% IV 500 ml 500 ml IV at 1 bolus once; to be given as a bolus over 30 jb4 minutes Volume: 500 ml; Route: IV; Rate: 1 bolus; Site: left forearm; 19:57 Follow up: Response: No adverse reaction; IV Status: Completed infusion; IV Intake: jb4 500ml Medication: 21:30 VIS not applicable for this client. jb4 Intake: 19:57 IV: 500ml; Total: 500ml. jb4 20:27 IV: 100ml; Total: 600ml. jb4 Outcome: 18:45 Decision to Hospitalize by Provider. kb 22:06 Admitted to Tele accompanied by tech, via wheelchair, room 401, with oxygen, with jb4 chart, 22:06 Condition: stable 22:06 Discharge instructions given to patient, Instructed on the need for admit, Demonstrated understanding of instructions, 22:07 Patient left the ED. jb4 Signatures: Dispatcher [employer] EDElana Kaminski, INTEGRATED LOGISTICS OPERATIONS MANAGER-C INTEGRATED LOGISTICS OPERATIONS MANAGER-Kimberly Lara RN RN iw Reji Mcadams RN RN jb4 Manda Faith RN RN db [place], Ruby ra3 Corrections: (The following items were deleted from the chart) 16:33 16:31 Chief complaint: Patient states: not feeling well and intermittent fever for a iw couple of weeks , also having left sided chest pain for a few weeks iw
[2024-05-16 18:51] LABS: Specific Gravity 1.017 (1.005-1.030); Sqamous Epithelial None Seen /HPF (None Seen); Urine Bacteria Loaded /HPF (<20); Urine Bilirubin NEGATIVE (Negative); Urine Blood 1+ (Negative); Urine Clarity Extremely Turbid (Clear); Urine Color Light-Yellow (Yellow); Urine Culture Reflex Order NOT NEEDED; Urine Glucose NEGATIVE (Negative); Urine Ketones NEGATIVE (Negative); Urine Microscopic Reflex YN ORDER UMIC; Urine Mucus 2+ /HPF (None Seen); Urine Nitrite 2+ (Negative); Urine Protein TRACE (Negative); Urine Urobilinogen Normal (Normal)
[2024-05-16] MEDS ORDERED: Levofloxacin500mg IV 500 MG/100 ML BAG IV ONE (19:14)
[2024-05-16] MEDS ORDERED: NA CHLORIDE 0.9% 500 ML ONE (19:14)
[2024-05-16 20:31] LABS: Blood Morphology Comment NOT SEEN (NOT SEEN); Platelet Estimate ADEQ; Toxic Granulation PRESENT; White Blood Cell Scan OK (OK)
[2024-05-16] MEDS ORDERED: ALBUTEROL 2.5 MG/3 ML NEB SOL NEB PRN (20:52)
--- NOTE | 2024-05-16 21:08 | P.HP ---
Certification for Inpatient With expected LOS: <2 Midnights Practitioner: I am a practitioner with admitting privileges, knowledge of patient current condition, hospital course, and medical plan of care. Services: Services provided to patient in accordance with Admission requirements found in Title 42 Section 412.3 of the Code of Federal Regulations Patient History Date of Service: 05/16/24 Reason for admission: pneumonia, chronic respiratory failure, UTI History of Present Illness: 69-year-old woman with a past medical history significant for COPD, chronic hypoxic respiratory failure on home oxygen (3.5 L), CHF, and hypertension [facility] complaining of chest pain, and dyspnea for unknown amount of days. Patient is alert, and oriented x 3. She describes her chest pain as substernal, without radiation, and of an aching quality. The patient states that she has been using her home oxygen, but still feels short of breath at rest. She is a former smoker who quit 6 months ago. Also, the patient complains of urinary frequency that began 2 days ago. She has not attempted anything to alleviate her chest pain, or urinary frequency, and states nothing worsens. The patient denies fever, cough, and headache. Allergies Penicillins Allergy (Severe, Verified 11/25/23 08:00) Itching/Hives/Rash codeine Adverse Reaction (Verified 11/25/23 08:00) VOMITING hydrocodone Adverse Reaction (Verified 11/25/23 08:00) Nausea/Vomiting morphine Adverse Reaction (Verified 11/25/23 08:00) VOMITING Home Medications: Metoprolol Succinate 50 mg PO BID 07/20/18 Spironolactone [Aldactone*] 25 mg PO DAILY 09/11/21 Albuterol Inhaler [Ventolin Inhaler*] 2 inh IH Q6H PRN 03/05/23 Aspirin [Aspirin Regimen] 81 mg PO DAILY 03/05/23 Fluticasone/Umeclidin/Vilanter [Trelegy Ellipta 100-62.5-25] 1 each IH DAILY 03/05/23 Azithromycin [Zithromax] 1 tab PO DAILY 12/10/23 Ethambutol HCl 1 tab PO DAILY 12/10/23 Ipratropium [place] 2.5 ml NEB QID PRN 12/10/23 predniSONE [Deltasone*] 1 tab PO DAILY 12/10/23 rifAMPin [Rifampin] 2 cap PO DAILY 12/10/23 Atorvastatin Calcium [Lipitor] 40 mg PO BEDTIME 30 Days #30 tab 12/14/23 - Past Medical/Surgical History Diabetic: No -: HTN, Breast Ca, R lumpectomy -: 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 -: TIA -: UTI -: Chronic systolic congestive heart failure -: chronic hypoxic respiratory failure on 3.5 L home oxygen -: hysterectomy, tonsilectomy -: Thomas shoulder, appy, choly -: L elbow -: thomas cataracts -: abdominal surgery with kadiyala Psychosocial/ Personal History: Lives at home alone - Family History Father -: Heart disease Notes: chf Mother -: Cancer Notes: breast cancer - Social History Smoking Status: Former smoker (Quit 6 months ago) Alcohol use: No CD- Drugs: No Caffeine use: No Review of Systems Respiratory: Shortness of Breath, SOB with Excertion Cardiovascular: Chest Pain Genitourinary: Frequency Neurological: Weakness Physical Examination - Vital Signs Temperature: 98.4 F Blood Pressure: 115/91 Pulse: 98 Respirations: 18 Pulse Ox (%): 97 (nasal cannula) - Physical Exam General: Alert, In no apparent distress, Oriented x3 HEENT: Atraumatic, Normocephalic Neck: JVD not distended Respiratory: Normal air movement Cardiovascular: No edema, No gallops, No rubs, No murmurs Gastrointestinal: Normal bowel sounds, Non-distended, No tenderness Musculoskeletal: No swelling, No erythema, No tenderness, No warmth Neurological: Normal strength at 5/5 x4 extr, Sensation intact Urinary: Other (Adult diaper) - Studies Laboratory Data (last 24 hrs) 05/16/24 05/16/24 05/16/24 17:21 17:21 17:21 WBC 9.70 Hgb 11.2 L Hct 34.9 L Plt Count 245 PT 12.2 INR 1.09 APTT 26.3 Sodium 133 L Potassium 4.0 BUN 21 H Creatinine 0.56 Glucose 142 H Total Bilirubin 0.4 AST 12 L ALT < 14 Alkaline Phosphatase 66 Assessment and Plan - Problems (Diagnosis) (1) COPD (chronic obstructive pulmonary disease) Current Visit: Yes Status: Acute (2) Chronic hypoxic respiratory failure Current Visit: Yes Status: Acute (3) Congestive heart failure (CHF) Current Visit: No Status: Acute Qualifiers: Heart failure type: systolic (4) HTN (hypertension) Current Visit: No Status: Acute (5) Pneumonia Current Visit: No Status: Acute Qualifiers: Pneumonia type: due to unspecified organism Laterality: left Lung location: upper lobe of lung Qualified Code(s): J18.9 - Pneumonia, unspecified organism - Plan Pneumonia: Admit to floor-curb 65 score of 2 Telemetry ordered Pulm consulted Bedside swallow screen ordered per patient request Respiratory therapy consulted DuoNebs as needed Solu-Medrol ordered C/w Levaquin Blood cultures collected in ED Negative lactate Negative troponin CXR revealed stable left cavitary lesion, left lung opacities consistent with infection/pneumonia Chronic hypoxic respiratory failure/COPD: Now on oxygen via nasal cannula Requires 3.5 L of oxygen at home CHF: Not volume overloaded at this time Will continue to monitor HTN: Resume home medication - Advance Directives Does patient have a Living Will: No Does patient have a Durable POA for Healthcare: No
[2024-05-16] MEDS: METHYLPREDNISOLONE 125 MG INJ IV ONE (22:56)
[2024-05-17] MEDS: IPRATROPIUM BROM 0.5MG/2.5ML NEB SCH (00:37)
[2024-05-17] MEDS: HEPARIN 5000 UNIT/ML 1 ML VIAL SQ SCH (01:33)
[2024-05-17 06:08] LABS: Absolute Lymphocytes (CBC) 0.3 K/uL (0.7-4.9); Absolute Monocytes 0.2 K/uL (0.1-1.3); Absolute Neutrophil 6.3 K/uL (1.8-8.0); Basophils % 0.1 % (0-1.3); Hematocrit 32.4 % (36.0-45.0); Hemoglobin 10.4 g/dL (12.0-15.0); Lymphocytes % 4.8 % (15.3-44.8); MCH 29.1 pg (27.0-35.0); MPV 8.6 fL (7.6-11.3); Monocytes % 2.6 % (3.3-12.3); Neutrophils % 92.5 % (41.7-73.7); Nucleated Red Blood Cells % 0.1 % (0-0); Platelets 243 thou/uL (152-406); RBC Red Blood Cell Count 3.56 M/uL (3.86-4.86); Red Cell Distribution Width 14.3 % (12.1-15.2)
[2024-05-17 06:40] LABS: ALT/SGPT < 14 U/L (13-56); AST/SGOT 13 U/L (15-37); Albumin 2.1 g/dL (3.4-5.0); Albumin/Globulin Ratio 0.4 (1.1-1.8); Alkaline Phosphatase 56 U/L (45-117); Anion Gap 3.7 mEq/L (5.0-15.0); BUN Blood Urea Nitrogen 11 mg/dL (7-18); Bicarbonate 40 mEq/L (21-32); Bilirubin Direct < 0.2 mg/dL (0-0.2); Bilirubin Indirect, Calculated 0.1 mg/dL (0.2-0.8); Bilirubin Total 0.3 mg/dL (0.2-1.0); Creatine Phosphokinase 20 U/L (26-192); Globulin 4.7 g/dL (2.3-3.5); Glomerular Filtration Rate 105 ml/min (=/>90); Glucose Level 144 mg/dL (74-106); HDL Cholesterol 65 mg/dL (40-60); LDL Cholesterol, Calculated 74 mg/dL (<130); LDL Cholesterol,Calc NonReport 74; Magnesium 2.1 mg/dL (1.6-2.4); NT PRO-BNP 227 pg/mL (<125); Potassium 4.7 mEq/L (3.5-5.1); Protein, Total 6.8 g/dL (6.4-8.2); Sodium Level 137 mEq/L (136-145); Thyroid Stimulating Hormone 0.815 uIU/mL (0.358-3.740)
[2024-05-17] MEDS ORDERED: levoFLOXacin 250 MG TAB PO SCH (09:00)
[2024-05-17] MEDS: levoFLOXacin 500 MG TAB PO SCH (10:47)
[2024-05-17] MEDS: predniSONE 10 MG TAB PO SCH (10:47)
--- NOTE | 2024-05-17 11:32 | EKG ---
Test Date: 2024-05-16 Test Time: 16:49:43 Impregnator: MAURI MEASUREMENT RESULTS: Intervals: Rate: 113 ID: [id number] QRSD: 86 QT: 316 QTc: 433 [place]: P: 87 ID: [id number] QRS: 65 T: 85 INTERPRETIVE STATEMENTS: Sinus tachycardia Minimal voltage criteria for LVH, may be normal variant Borderline ECG Compared to ECG 12/16/2023 19:45:43 Left ventricular hypertrophy now present Electronically Signed On 05-17-24 11:31:12 CALL CENTER RN by Darío Poole
--- NOTE | 2024-05-17 11:49 | RAD REPORT ---
EXAMINATION: CT Thorax Wo Con CLINICAL INDICATION: Female, 69 years old. [facility] MAIN Pneumonia Y TECHNIQUE: Axial CT scan of the chest without intravenous contrast. Multiplanar reformats were genera bella and reviewed. One or more of the following dose reduction techniques were used: Automated exposure control, adjustment of the mA and/or kV according patient size, and/or iterative reconstruct ion. Unless otherwise specified, incidental findings do not require dedicated imaging follow-up. COMPARISON: 12/16/2023 CTA chest. 05/16/2024 2 12/23/2023 chest radiographs FINDINGS: LOWER NECK: Visualized thyroid gland and soft tissues are normal. LUNGS: Pleural-based left apical cavitary lesion has slightly decreased in size as the prior exam, wi th partial improvement of consolidative opacities along its inferior margin extending along the subpleural space within the left upper lobe. Mid left upper lobe reticular opacities peripherally suc h as seen on axial image 37 are somewhat more progressive than on prior exam. Other consolidative and reticular opacities in the medial left upper lobe and lingular segment have since resolved. Patch y opacities within the left lower lobe have also since resolved, with the exception of an elongated nodular opacity anteriorly on axial image 32 measuring 1 cm. Background moderate to advanced centrilo bular emphysematous changes are stable. No evidence of airspace or interstitial process. No worrisome nodules. PLEURA: No pleural effusion. No pneumothorax. . MEDIASTINUM AND LYMPH NODES: No mediastinal mass or fluid collection. Normal size mediastinal, hilar, and axillary lymph nodes. OSSEOUS STRUCTURES AND CHEST WALL: Intact. Metallic battery pack along the left posterolateral chest wall is stable. UPPER ABDOMEN: No acute abnormalities. Status post cholecystectomy. Poorly characterized cystic left renal cortical upper pole lesion is stable. IMPRESSION: Patchy and reticular opacities in the anterior left upper lobe are somewhat progressive since the radha or exam, may relate to nonresolved region of pneumonitis. Other areas of consolidation in the medial left upper lobe, and more superior left upper lobe along the inferior margin of a known cavita ry lesion have since improved. Other stable findings as above.
[2024-05-17] MEDS ORDERED: IPRATROPIUM BROM 0.5MG/2.5ML IH SCH (13:00)
--- NOTE | 2024-05-17 13:38 | P.CNS ---
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 like she may have relapsed again being progressively more weak here in the hospital patient has progression on her chest x-ray Allergies Penicillins Allergy (Severe, Verified 11/25/23 08:00) Itching/Hives/Rash codeine Adverse Reaction (Verified 11/25/23 08:00) VOMITING hydrocodone Adverse Reaction (Verified 11/25/23 08:00) Nausea/Vomiting morphine Adverse Reaction (Verified 11/25/23 08:00) VOMITING Home Medications: Metoprolol Succinate 50 mg PO DAILY 07/20/18 Spironolactone [Aldactone*] 25 mg PO DAILY 09/11/21 Albuterol Inhaler [Ventolin Inhaler*] 2 inh IH Q6H PRN 03/05/23 Aspirin [Aspirin Regimen] 81 mg PO DAILY 03/05/23 Fluticasone/Umeclidin/Vilanter [Trelegy Ellipta 100-62.5-25] 1 each IH DAILY 03/05/23 Ipratropium Mitchell[place] 2.5 ml NEB QID PRN 12/10/23 predniSONE [Deltasone*] 1 tab PO DAILY 12/10/23 Roflumilast 1 tab PO DAILY 05/17/24 - Past Medical/Surgical History Diabetic: No -: HTN, Breast Ca, R lumpectomy -: 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 -: TIA -: UTI -: chronic hypoxic respiratory failure on 3.5 L home oxygen -: hysterectomy, tonsilectomy -: Thomas shoulder, appy, choly -: L elbow -: thomas cataracts -: abdominal surgery with kadiyala Psychosocial/ Personal History: Lives at home alone - Family History Father Medical History: Heart disease Notes: chf Mother Medical History: Cancer Notes: breast cancer - Social History Smoking Status: Current every day smoker Alcohol use: No CD- Drugs: No Caffeine use: No Place of Residence: Home Review of Systems 10-point ROS is otherwise unremarkable General: Weakness Respiratory: Cough, Shortness of Breath Physical Examination Temp Pulse Resp BP Pulse Ox 97.9 F 102 H 20 118/87 99 05/17/24 12:00 05/17/24 12:00 05/17/24 12:00 05/17/24 12:00 05/17/24 12:00 General: Alert, Oriented x3 Respiratory: Clear to auscultation bilaterally, Diminished Cardiovascular: No edema, Regular rate/rhythm, Normal S1 S2 Gastrointestinal: Normal bowel sounds, Soft and benign Laboratory Data (last 24 hrs) 05/16/24 05/16/24 05/16/24 17:21 17:21 17:21 WBC 9.70 Hgb 11.2 L Hct 34.9 L Plt Count 245 PT 12.2 INR 1.09 APTT 26.3 Sodium 133 L Potassium 4.0 BUN 21 H Creatinine 0.56 Glucose 142 H Total Bilirubin 0.4 AST 12 L ALT < 14 Alkaline Phosphatase 66 - Problems (1) Cavitary pneumonia Current Visit: Yes Status: Acute Plan: Patient is 69 years of age has terminal COPD history of Mycobacterium abscessus infection there was recently treated with IV antibiotics as she still has large cavitary area in the left upper lobe is likely that patient has progressed this point will start patient on amikacin meropenem and linezolid hide need to be aggressive hopefully she will be able to cough up some more sputum will need to do sensitivity studies on the specimen history is reviewed white count is normal gnosis very poor she has had progressive decline in her physical status
[2024-05-17] MEDS: Meropenem 1,000 MG in NA CHLORIDE 0.9% 100 ML IV SCH (13:44)
[2024-05-17] MEDS ORDERED: ALBUTEROL 2.5 MG/3 ML NEB SOL NEB PRN (14:46)
[2024-05-17] MEDS: NA CHLORIDE 0.9% IV SCH (15:23)
[2024-05-17] MEDS: [UNRECOGNIZED DRUG - OTHER] IV SCH (15:23)
[2024-05-17] MEDS: ARFORMOTEROL TARTRATE 15 MCG/2 ML VIAL.NEB NEB SCH (18:10)
[2024-05-17] MEDS ORDERED: Levofloxacin 250mg IV 250 MG/50 ML BAG IV SCH (19:00)
[2024-05-17] MEDS: LINEZOLID 600 MG TAB PO SCH (20:45)
[2024-05-17] MEDS: Mupirocin NASAL 2 APPL/1 GM TUBE NAS SCH (20:45)
[2024-05-18 06:42] LABS: Absolute Lymphocytes (CBC) 0.7 K/uL (0.7-4.9); Absolute Monocytes 0.5 K/uL (0.1-1.3); Basophils % 0.5 % (0-1.3); Eosinophils % 0.3 % (0-4.4); Hematocrit 33.4 % (36.0-45.0); Hemoglobin 10.7 g/dL (12.0-15.0); Lymphocytes % 13.7 % (15.3-44.8); MCH 29.1 pg (27.0-35.0); MCHC 31.9 g/dL (32.0-36.0); MCV 91.2 fL (80-100); MPV 8.5 fL (7.6-11.3); Neutrophils % 75.5 % (41.7-73.7); Nucleated Red Blood Cells % 0.2 % (0-0); Platelets 242 thou/uL (152-406); RBC Red Blood Cell Count 3.66 M/uL (3.86-4.86); Red Cell Distribution Width 14.3 % (12.1-15.2)
[2024-05-18 07:15] LABS: Albumin 2.2 g/dL (3.4-5.0); Albumin/Globulin Ratio 0.5 (1.1-1.8); Alkaline Phosphatase 53 U/L (45-117); Anion Gap 7.5 mEq/L (5.0-15.0); BUN Blood Urea Nitrogen 14 mg/dL (7-18); Bicarbonate 38 mEq/L (21-32); Bilirubin Total 0.3 mg/dL (0.2-1.0); Globulin 4.7 g/dL (2.3-3.5); Glomerular Filtration Rate 106 ml/min (=/>90); Glucose Level 121 mg/dL (74-106); Magnesium 2.3 mg/dL (1.6-2.4); Phosphorus 2.9 mg/dL (2.5-4.9); Potassium 4.5 mEq/L (3.5-5.1); Protein, Total 6.9 g/dL (6.4-8.2); Sodium Level 137 mEq/L (136-145)
[2024-05-18 07:18] LABS: ALT/SGPT < 14 U/L (13-56); AST/SGOT < 10 U/L (15-37)
[2024-05-18] MEDS ORDERED: levoFLOXacin 500 MG TAB PO SCH (09:00)
[2024-05-18] MEDS: ENOXAPARIN 40 MG/0.4 ML SQ SCH (09:06)
[2024-05-19 06:32] LABS: Anion Gap 5.5 mEq/L (5.0-15.0); Potassium 4.5 mEq/L (3.5-5.1)
--- NOTE | 2024-05-19 10:24 | P.PN ---
Subjective Date of Service: 05/19/24 Chief Complaint: Cavitary pneumonia Subjective: Improving (Pain is improving doing well no new complaints tolerating medication) Review of Systems General: Weakness Respiratory: Shortness of Breath Physical Examination - Vital Signs Temperature: 98 F Blood Pressure: 129/75 Pulse: 115 Respirations: 20 Pulse Ox (%): 99 - Physical Exam General: Alert, In no apparent distress, Oriented x3 Respiratory: Diminished Cardiovascular: No edema, Normal pulses Assessment And Plan - Current Problems (Diagnosis) (1) Cavitary pneumonia Current Visit: Yes Status: Acute Plan: Patient has fibrocavitary pneumonia in the left upper lobe to be progressive Mycobacterium abscessus reported before continue with meropenem and amikacin and linezolid for now I have asked respiratory to induce sputum if not possible we will plan to do a bronchoscopy on Wednesday to know the sensitivities and the idea of the organisms patient to be discharged home on amikacin meropenem and linezolid hide history's labs all reviewed normal white count signs stable oxygenation satisfactory
--- NOTE | 2024-05-19 11:00 | P.PN ---
Subjective Date of Service: 05/17/24 Patient feeling better but still really weak and depressed about her clinical status. Encouraging her to get out of bed and move around a little bit. She does get tachycardic at times. Review of Systems 10-point ROS is otherwise unremarkable Physical Examination - Vital Signs Temperature: 98 F Blood Pressure: 129/75 Pulse: 115 Respirations: 20 Pulse Ox (%): 99 - Physical Exam General: Alert, In no apparent distress, Oriented x3 HEENT: Atraumatic, PERRLA, EOMI Neck: Supple, JVD not distended Respiratory: Diminished, Rhonchi/gurgles Cardiovascular: Regular rate/rhythm, Normal S1 S2 Gastrointestinal: Normal bowel sounds, Soft and benign, Non-distended, No tenderness Musculoskeletal: No clubbing, No swelling, No tenderness Neurological: Sensation intact, Cranial nerves 3-12 intact - Studies Medications List Reviewed: Yes Assessment & Plan - Problems (Diagnosis) (1) Mycobacterium avium infection Current Visit: Yes Status: Acute (2) Cavitary pneumonia Current Visit: Yes Status: Acute (3) Sinus tachycardia Current Visit: Yes Status: Acute (4) COPD (chronic obstructive pulmonary disease) Current Visit: Yes Status: Acute (5) CAD (coronary artery disease) Current Visit: No Status: Acute (6) HTN (hypertension) Current Visit: No Status: Acute (7) COPD exacerbation Current Visit: No Status: Chronic - Plan Plan: 1. 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 Continue with IV antibiotics at this time. Cultures pending. Clinically pending. Patient will be admitted to the hospital and will continue with nebs, steroids, antibiotics as well because of acute COPD exacerbation. Patient has episodes of sinus tachyarrhythmia and will continue to monitor. Anticipate this will improve respirations pneumonia improved. Monitor renal function closely. 2. CAD; continue with cardiac meds 3. History of hypertension; resume antihypertensive. Add beta-johnson 4. GI and DVT prophylaxis Discharge Plan: Home Plan to discharge in: Greater than 2 days - Advance Directives Does patient have a Living Will: No Does patient have a Durable POA for Healthcare: No - Code Status/Comfort Care Code Status Assessed: Yes Code Status: Full Code Critical Care: No Time Spent Managing PTS Care (In Minutes): 35
--- NOTE | 2024-05-19 11:01 | P.PN ---
Date of Service: 05/18/24 Subjective Patient clinically improving. However had episode of sinus tachyarrhythmia again. Continue monitoring rhythm closely. Continue with current antibiotic regimen. Physical Examination - Vital Signs Reviewed - Physical Exam General: Alert, In no apparent distress, Oriented x3 HEENT: Atraumatic, PERRLA, EOMI Neck: Supple, JVD not distended Respiratory: Diminished, Rhonchi/gurgles Cardiovascular: Regular rate/rhythm, Normal S1 S2 Gastrointestinal: Normal bowel sounds, Soft and benign, Non-distended, No tenderness Musculoskeletal: No clubbing, No swelling, No tenderness Neurological: Sensation intact, Cranial nerves 3-12 intact - Studies Medications List Reviewed: Yes Assessment & Plan - Problems (Diagnosis) (1) Mycobacterium avium infection Current Visit: Yes Status: Acute (2) Cavitary pneumonia Current Visit: Yes Status: Acute (3) Sinus tachycardia Current Visit: Yes Status: Acute (4) COPD (chronic obstructive pulmonary disease) Current Visit: Yes Status: Acute (5) CAD (coronary artery disease) Current Visit: No Status: Acute (6) HTN (hypertension) Current Visit: No Status: Acute (7) COPD exacerbation Current Visit: No Status: Chronic - Plan Plan: 1. 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 Continue with IV antibiotics at this time. Cultures pending. Clinically pending. Patient will be admitted to the hospital and will continue with nebs, steroids, antibiotics as well because of acute COPD exacerbation. Patient has episodes of sinus tachyarrhythmia and will continue to monitor. Anticipate this will improve respirations pneumonia improved. Monitor renal function closely. 2. CAD; continue with cardiac meds 3. History of hypertension; resume antihypertensive. Add beta-johnson 4. GI and DVT prophylaxis Discharge Plan: Home Plan to discharge in: Greater than 2 days - Advance Directives Does patient have a Living Will: No Does patient have a Durable POA for Healthcare: No - Code Status/Comfort Care Code Status Assessed: Yes Code Status: Full Code Critical Care: No Time Spent Managing PTS Care (In Minutes): 35
[2024-05-19] MEDS: SODIUM CHLORIDE 3% INHALATION 4 ML VIAL.NEB IH ONE (13:00)
[2024-05-19] MEDS: METOPROLOL TARTRATE 5 MG/5 ML INJ IV STA (14:06)
[2024-05-19] MEDS: METOPROLOL TAR 25 MG TAB PO SCH (14:06)
[2024-05-19] MEDS: ENSURE ENLIVE 237 ML CAN PO SCH (20:41)
[2024-05-21] MEDS: ACETAMINOPHEN 325 MG TABLET PO PRN (10:47)
--- NOTE | 2024-05-22 01:35 | P.PN ---
Date of Service: 05/19/24 Subjective Patient with cavitary lesions. Unknown etiology. Most likely Mycobacterium AVM. Nephrology recommended amikacin and awaiting for cultures. Patient remains to tachycardia with minimal movement. Physical Examination - Vital Signs Reviewed - Physical Exam General: Alert, In no apparent distress, Oriented x3 Respiratory: Diminished, Rhonchi/gurgles Cardiovascular: Tachycardic; regular rate and rhythm Gastrointestinal: Normal bowel sounds, Soft and benign, Non-distended, No tenderness Musculoskeletal: No clubbing, No swelling, No tenderness Neurological: Sensation intact, Cranial nerves 3-12 intact - Studies Medications List Reviewed: Yes Assessment & Plan - Problems (Diagnosis) (1) Mycobacterium avium infection Current Visit: Yes Status: Acute (2) Cavitary pneumonia Current Visit: Yes Status: Acute (3) Sinus tachycardia Current Visit: Yes Status: Acute (4) COPD (chronic obstructive pulmonary disease) exacerbation Current Visit: Yes Status: Acute (5) CAD (coronary artery disease) Current Visit: No Status: Acute (6) HTN (hypertension) Current Visit: No Status: Acute - Plan Plan: 1. 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 Continue with IV antibiotics at this time. Pulmonary recommended amikacin and meropenem. On Zyvox p.o. Cultures pending. Patient will continue with nebs, steroids, and antibiotics. Patient has episodes of sinus tachyarrhythmia and will continue to monitor. Monitor antibiotic dosing as well as renal input 2. CAD; continue with cardiac meds 3. History of hypertension; resume antihypertensive. Add beta-johnson 4. GI and DVT prophylaxis Discharge Plan: Home with Plan to discharge in: Greater than 2 days - Advance Directives Does patient have a Living Will: No Does patient have a Durable POA for Healthcare: No - Code Status/Comfort Care Code Status Assessed: Yes Code Status: Full Code Critical Care: No Time Spent Managing PTS Care (In Minutes): 30
--- NOTE | 2024-05-22 01:37 | P.PN ---
Date of Service: 05/20/24 Subjective Patient continues to improve. Heart rate is stabilized although occasionally it does go up. Started low-dose beta-johnson therapy. Repeat x-rays and await for outpatient antibiotic arrangements. Physical Examination - Vital Signs Reviewed - Physical Exam General: Alert, In no apparent distress, Oriented x3 Respiratory: Diminished, Rhonchi/gurgles Cardiovascular: Tachycardic; regular rate and rhythm Gastrointestinal: Normal bowel sounds, Soft and benign, Non-distended, No tenderness Musculoskeletal: No clubbing, No swelling, No tenderness Neurological: Sensation intact, Cranial nerves 3-12 intact - Studies Medications List Reviewed: Yes Assessment & Plan - Problems (Diagnosis) (1) Mycobacterium avium infection Current Visit: Yes Status: Acute (2) Cavitary pneumonia Current Visit: Yes Status: Acute (3) Sinus tachycardia Current Visit: Yes Status: Acute (4) COPD (chronic obstructive pulmonary disease) exacerbation Current Visit: Yes Status: Acute (5) CAD (coronary artery disease) Current Visit: No Status: Acute (6) HTN (hypertension) Current Visit: No Status: Acute - Plan Plan: 1. 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 Continue with IV antibiotics as recommended. Pulmonary recommended amikacin and meropenem. On Zyvox p.o. as well. Cultures pending. QuantiFERON pending. Patient will continue with nebs, steroids, and antibiotics. Patient has episodes of sinus tachyarrhythmia and will continue to monitor. Monitor antibiotic dosing as well as renal input 2. CAD; continue with cardiac meds 3. History of hypertension; resume antihypertensive. Add beta-johnson 4. GI and DVT prophylaxis Discharge Plan: Home with Plan to discharge in: Greater than 2 days - Advance Directives Does patient have a Living Will: No Does patient have a Durable POA for Healthcare: No - Code Status/Comfort Care Code Status Assessed: Yes Code Status: Full Code Critical Care: No Time Spent Managing PTS Care (In Minutes): 30
--- NOTE | 2024-05-22 01:40 | P.PN ---
Date of Service: 05/21/24 Subjective Patient denies any new complaints. Patient admitted for cavitary lesion and started on amikacin and meropenem along with oral Zyvox per pulmonary recommendation. Awaiting for sputum culture results. Acid-fast bacilli pending. QuantiFERON pending. Physical Examination - Vital Signs Reviewed - Physical Exam General: Alert, In no apparent distress, Oriented x3 Respiratory: Diminished but otherwise clear Cardiovascular: Tachycardic; regular rate and rhythm Gastrointestinal: Normal bowel sounds, Soft and benign, Non-distended, No tenderness Musculoskeletal: No clubbing, No swelling, No tenderness Neurological: No focal deficits Assessment & Plan - Problems (Diagnosis) (1) Mycobacterium avium infection Current Visit: Yes Status: Acute (2) Cavitary pneumonia Current Visit: Yes Status: Acute (3) Sinus tachycardia Current Visit: Yes Status: Acute (4) COPD (chronic obstructive pulmonary disease) exacerbation Current Visit: Yes Status: Acute (5) CAD (coronary artery disease) Current Visit: No Status: Acute (6) HTN (hypertension) Current Visit: No Status: Acute - Plan Plan: 1. Continue with plan of care as mentioned above. 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 Continue with IV antibiotics as recommended. Pulmonary recommended amikacin and meropenem. On Zyvox p.o. as well. Cultures pending. QuantiFERON pending. Patient will continue with nebs & steroids at this time. Monitor antibiotic dosing as well as renal input 2. CAD; continue with cardiac meds; patient with sinus tachyarrhythmia started low-dose metoprolol. Heart rate better controlled. 3. History of hypertension; resume antihypertensive. Added beta-johnson as mentioned above 4. GI and DVT prophylaxis Discharge Plan: Home with (for IV antibiotic management) Plan to discharge in: Greater than 2 days - Advance Directives Does patient have a Living Will: No Does patient have a Durable POA for Healthcare: No - Code Status/Comfort Care Code Status Assessed: Yes Code Status: Full Code Critical Care: No Time Spent Managing PTS Care (In Minutes): 30
[2024-05-22 05:20] VITALS: BMI 18.1
[2024-05-22 06:07] LABS: Absolute Lymphocytes (CBC) 0.7 K/uL (0.7-4.9); Absolute Monocytes 0.2 K/uL (0.1-1.3); Basophils % 0.6 % (0-1.3); Hemoglobin 11.3 g/dL (12.0-15.0); Lymphocytes % 13.6 % (15.3-44.8); MCH 29.3 pg (27.0-35.0); MCHC 32.2 g/dL (32.0-36.0); MPV 8.5 fL (7.6-11.3); Monocytes % 4.5 % (3.3-12.3); Neutrophils % 80.3 % (41.7-73.7); Nucleated Red Blood Cells % 0.1 % (0-0); Platelets 308 thou/uL (152-406); RBC Red Blood Cell Count 3.84 M/uL (3.86-4.86); Red Cell Distribution Width 14.6 % (12.1-15.2)
[2024-05-22 06:29] LABS: Albumin 2.3 g/dL (3.4-5.0); Albumin/Globulin Ratio 0.5 (1.1-1.8); Anion Gap 4.6 mEq/L (5.0-15.0); Bilirubin Total 0.3 mg/dL (0.2-1.0); Globulin 4.2 g/dL (2.3-3.5); Magnesium 2.4 mg/dL (1.6-2.4); Potassium 4.6 mEq/L (3.5-5.1); Protein, Total 6.5 g/dL (6.4-8.2)
[2024-05-22] MEDS: Phenylephrine HCl 10 MG/ML 1 ML VIAL ONE (09:45)
[2024-05-22] MEDS: LIDOCAINE 4% TOP SOLUTION ONE (09:45)
[2024-05-22] MEDS ORDERED: LIDOCAINE 1% MPF 30 ML VIAL ONE (10:49)
--- NOTE | 2024-05-22 11:03 | P.PN ---
Subjective Date of Service: 05/22/24 Chief Complaint: Cavitary pneumonia Subjective: No new changes Patient states that she is doing fine, awaiting bronchoscopy scheduled 11 AM this morning. She has a dry cough unable to correct sputum for test, denied hemoptysis or fever or weight loss. No history of HIV or diabetes. She has had pneumonia in the left upper lobe for a long time, she has a history of COPD requiring home oxygen. Review of Systems Other: Consitutional; fever(-), chills (-), rigor(-), night sweat(-), unintentional weight loss(-) HEENT; epistaxis (-), otorrhea (-), otalgia (-) Respiratory; shortness of breath (+), wheezing (-), cough (+), sputum (-), pleuritic chest pain (-) Cardiovascular; chest pain (-), peripheral edema (-), paroxysmal nocturnal dyspnea (-), orthopnea (-) Gastrointestinal; nausea (-), vomiting (-), abdominal pain (-), diarrhea (-), constipation (-), melena (-), hematochezia (-) Urinary; urinary frequency (-), dysuria (-), urgency (-), flank pain (-), gross hematuria (-) Skin; rash (-), pruritus (-) MASSOTHERAPIST; headache (-), paresthesia (-), numbness (-), paralysis (-), tremor (-), ataxia (-), dysphagia (-), dysarthria (-), diplopia (-) Physical Examination - Vital Signs Temperature: 97.9 F Blood Pressure: 123/57 Pulse: 87 Respirations: 16 Pulse Ox (%): 100 - Physical Exam Other Physical/Emotional Findings: - Physical Exam. General: Emaciated, chronic ill-looking, , in no apparent distress,. HEENT: Normocephalic, atraumatic,. Neck: Supple, without JVD or goiter or thyroid mass. Respiratory: Normal breathing effort, clear to auscultation bilaterally, no crackles no wheezing or rhonchi. Cardiovascular: Regular rate and rhythm, S1, S2 normal, no murmur no gallop. Gastrointestinal: Normal bowel sounds, nondistended, nontender, No ascites, , No masses, no hepatosplenomegaly. Musculoskeletal: No clubbing, No peripheral edema. Integumentary: No rashes. Lymphatics: No axilla or cervical lymphadenopathy. Neurology; alert awake oriented x3, no focal neurologic deficit - Studies Microbiology Data (last 24 hrs): 05/16/24 17:36 Blood - Blood Aerobic Blood Culture - Final No growth in 5 days. 05/16/24 17:36 Blood - Blood Anaerobic Blood Culture - Final No growth in 5 days. 05/16/24 17:21 Blood - Blood Aerobic Blood Culture - Final No growth in 5 days. 05/16/24 17:21 Blood - Blood Anaerobic Blood Culture - Final No growth in 5 days. Medications List Reviewed: Yes Assessment And Plan - Plan 69-year-old woman with a past medical history significant for COPD, chronic hypoxic respiratory failure on home oxygen (3.5 L), MAC infection CHF, and hypertension presented to the emergency department tonight complaining of chest pain, and dyspnea 1 Progressive cavitary lesion in the left upper lobe by CT of the chest most likely related to Mycobacterium AVM; pulmonary consultation appreciated. Pulmonary recommended amikacin and meropenem as well as Zyvox p.o. supplemental oxygen, sputum culture ordered, sample unable to obtain QuantiFERON pending. Scheduled for bronchoscopy today
[2024-05-22] MEDS: Ringers Lactate 1,000 ML IV ONE (11:15)
[2024-05-22] MEDS ORDERED: propofoL 200 MG/20 ML VIAL IV ONE (11:38)
[2024-05-22] MEDS ORDERED: LIDOCAINE 1% MPF 5 ML VIAL ONE (11:38)
[2024-05-22] MEDS: LIDOCAINE 4% TOP SOLUTION TOP ONE (12:24)
[2024-05-22] MEDS: LIDOCAINE 1% MPF 30 ML VIAL SQ ONE ×2 (12:27)
--- NOTE | 2024-05-22 16:30 | P.OP ---
Date of Service: 05/22/24 (BAL MAURA) Findings and Operative Technique Pt i s69 yrs with history of M abscessus. Admitted again with progressive pen umonia and cavitary changes. Unable to expextorate After obtaining and informd consent pt was premedicted by anesthesia Finding normal bronchoscopy No purulence visible. BAL performed as above
--- NOTE | 2024-05-22 16:43 | RAD REPORT ---
EXAMINATION: ONE VIEW CHEST XR CLINICAL INDICATION: Female, 69 years old.,s/p bronchoscopy TECHNIQUE: Frontal chest projection is submitted. Examination is limited by patient positioning and t echnique. COMPARISON: 05/16/2024 FINDINGS: The lungs are diffusely emphysematous with stable patchy peripheral left upper to midlung opacities, may relate to scarring or persistent airspace disease. Mild left perihilar opacities are marginally improved, although are better assessed on CT. Left chest wall vagus stimulator battery pack in place. . No pneumothorax or sizable effusion. The heart is normal in size. Mediastinal contours are unremarkable. IMPRESSION: No pneumothorax. Marginal improvement of left perihilar opacities. Other stable findings as above.
--- NOTE | 2024-05-22 17:07 | RAD REPORT ---
EXAM: Fluoroscopy use, Fluoroscopy <1 Hour HISTORY: [facility] MAIN UPPER LEFT LOBE BRONCH COMPARISON: None FINDINGS: A total of 3 images were sent to PACS, during a fluoroscopically guided bronchoscopy. No ra diologist was involved in protocoling or performance of the study, and no radiologist was present for the duration of the procedure. No interpretation of the saved images will be provided. Total fluoroscopy time: 26.3 seconds. IMPRESSION: Documentation of fluoroscopy use as above.
--- NOTE | 2024-05-23 11:51 | P.PN ---
Subjective Date of Service: 05/23/24 Chief Complaint: Cavitary pneumonia Subjective: Improving (Patient is improving feeling better tolerating medications) Review of Systems General: Weakness Respiratory: Shortness of Breath Physical Examination - Vital Signs Temperature: 98.2 F Blood Pressure: 117/58 Pulse: 101 Respirations: 16 Pulse Ox (%): 98 - Physical Exam General: Alert, In no apparent distress, Oriented x3 Respiratory: Clear to auscultation bilaterally, Diminished Other Physical/Emotional Findings: - Physical Exam. General: Emaciated, chronic ill-looking, , in no apparent distress,. HEENT: Normocephalic, atraumatic,. Neck: Supple, without JVD or goiter or thyroid mass. Respiratory: Normal breathing effort, clear to auscultation bilaterally, no crackles no wheezing or rhonchi. Cardiovascular: Regular rate and rhythm, S1, S2 normal, no murmur no gallop. Gastrointestinal: Normal bowel sounds, nondistended, nontender, No ascites, , No masses, no hepatosplenomegaly. Musculoskeletal: No clubbing, No peripheral edema. Integumentary: No rashes. Lymphatics: No axilla or cervical lymphadenopathy. Neurology; alert awake oriented x3, no focal neurologic deficit - Studies Medications List Reviewed: Yes Assessment And Plan - Current Problems (Diagnosis) (1) Cavitary pneumonia Current Visit: Yes Status: Acute Plan: Patient has progressive cavitary pneumonia the left upper lobe is doing better awaiting bronchoscopy results set up with home amikacin meropenem and linezolid hide labs chemistries reviewed awaiting amikacin levels plan discharge will need amikacin and meropenem for 2 months will need amikacin and meropenem for 2 months in addition to lanizolide
--- NOTE | 2024-05-23 13:37 | P.PN ---
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 Review of Systems Other: Consitutional; fever(-), chills (-), rigor(-), night sweat(-), unintentional weight loss(-) HEENT; diplopia (-), rhinorrhea (-), epistaxis (-), otorrhea (-), otalgia (-) Respiratory; shortness of breath (+), wheezing (-), cough (+), sputum (-), pleuritic chest pain (-) Cardiovascular; chest pain (-), peripheral edema (-), paroxysmal nocturnal dyspnea (-), orthopnea (-) Gastrointestinal; nausea (-), vomiting (-), abdominal pain (-), diarrhea (-), constipation (-), melena (-), hematochezia (-) Urinary; urinary frequency (-), dysuria (-), urgency (-), flank pain (-), gross hematuria (-), incontinence (-) Skin; rash (-), pruritus (-) SCIENTIFIC WRITER; headache (-), paresthesia (-), numbness (-), paralysis (-) Physical Examination - Vital Signs Temperature: 98.2 F Blood Pressure: 117/58 Pulse: 101 Respirations: 16 Pulse Ox (%): 98 - Physical Exam Other Physical/Emotional Findings: - Physical Exam. General: Emaciated, chronic ill-looking, , in no apparent distress,. HEENT: Normocephalic, atraumatic,. Neck: Supple, without JVD or goiter or thyroid mass. Respiratory: Normal breathing effort, distant breath sound ,no crackles no wheezing or rhonchi. Cardiovascular: Regular rate and rhythm, S1, S2 normal, no murmur no gallop. Gastrointestinal: Normal bowel sounds, nondistended, nontender, No ascites, , No masses, no hepatosplenomegaly. Musculoskeletal: No clubbing, No peripheral edema. Integumentary: No rashes. Lymphatics: No axilla or cervical lymphad enopathy. 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 supplemental oxygen, AFB and fungal culture by bronchoscopy pending, awaiting QuantiFERON test, sputum culture ordered but sample unable to obtain Plan to discharge home in a couple of days, antibiotics will be determined by her evaluation engineer ,
--- NOTE | 2024-05-23 17:21 | RAD REPORT ---
EXAMINATION: ONE VIEW CHEST XR CLINICAL INDICATION: PICC PLACEMENT TECHNIQUE: Frontal chest projection is submitted. Examination is limited by patient positioning and t echnique. COMPARISON: 05/22/2024 FINDINGS: Irregular cavitary lesion is again seen in the left upper lobe. A left PICC line is in place with its tip in SVC. The heart is normal in size. No displaced fractures identified. Defibrillator device. IMPRESSION: Left PICC line has its tip in the SVC.
[2024-05-23] MEDS: MELATONIN 5 MG TABLET PO PRN (19:52)
[2024-05-23] MEDS: CODEINE 30MG/APAP 300MG TAB PO PRN (19:52)
--- NOTE | 2024-05-24 12:31 | P.PN ---
Subjective Date of Service: 05/24/24 Chief Complaint: Cavitary pneumonia Subjective: Improving (Patient is improving doing well no new complaints feels slightly dizzy) Review of Systems General: Weakness Respiratory: Shortness of Breath Physical Examination - Vital Signs Temperature: 98.1 F Blood Pressure: 116/59 Pulse: 94 Respirations: 16 Pulse Ox (%): 97 - Physical Exam General: Alert, In no apparent distress, Oriented x3 Respiratory: Clear to auscultation bilaterally, Diminished Gastrointestinal: Normal bowel sounds Other Physical/Emotional Findings: - Physical Exam. General: Emaciated, chronic ill-looking, , in no apparent distress,. HEENT: Normocephalic, atraumatic,. Neck: Supple, without JVD or goiter or thyroid mass. Respiratory: Normal breathing effort, distant breath sound ,no crackles no wheezing or rhonchi. Cardiovascular: Regular rate and rhythm, S1, S2 normal, no murmur no gallop. Gastrointestinal: Normal bowel sounds, nondistended, nontender, No ascites, , No masses, no hepatosplenomegaly. Musculoskeletal: No clubbing, No peripheral edema. Integumentary: No rashes. Lymphatics: No axilla or cervical lymphadenopathy. Neurology; alert awake oriented x3, no focal neurologic deficit - Studies Medications List Reviewed: Yes Assessment And Plan - Current Problems (Diagnosis) (1) Cavitary pneumonia Current Visit: Yes Status: Acute Plan: Patient is doing better tolerating medications amikacin peak and trough levels reviewed peak is 17 trough is less than 2.5 continue the present dose of amikacin to be discharged home on meropenem amikacin and linezolid awaiting cultures signs stable
--- NOTE | 2024-05-24 13:26 | P.PN ---
Subjective Date of Service: 05/24/24 Chief Complaint: Cavitary pneumonia Subjective: No new changes Outpatient have not new complaint, unchanged shortness of breath at minimal exertion, dry cough, patient once physically therapy because she is too weak to walk around. She got a PICC line for long-term IV antibiotics in the left arm yesterday without any complication Review of Systems Other: Consitutional; fever(-), chills (-), rigor(-), night sweat(-), unintentional weight loss(-) HEENT; diplopia (-), rhinorrhea (-), epistaxis (-), otorrhea (-), otalgia (-) Respiratory; shortness of breath (+), wheezing (-), cough (+), sputum (-), pleuritic chest pain (-) Cardiovascular; chest pain (-), peripheral edema (-), paroxysmal nocturnal dyspnea (-), orthopnea (-) Gastrointestinal; nausea (-), vomiting (-), abdominal pain (-), diarrhea (-), constipation (-), melena (-), hematochezia (-) Urinary; urinary frequency (-), dysuria (-), urgency (-), flank pain (-), gross hematuria (-), incontinence (-) Skin; rash (-), pruritus (-) 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 General: Emaciated, chronic ill-looking, , in no apparent distress,. HEENT: Normocephalic, atraumatic,. Neck: Supple, without JVD or goiter or thyroid mass. Respiratory: Normal breathing effort, distant but clear breath sound ,no crackles no wheezing or rhonchi. Cardiovascular: Regular rate and rhythm, S1, S2 normal, no murmur no gallop. Gastrointestinal: Normal bowel sounds, nondistended, nontender, No ascites, , No masses, no hepatosplenomegaly. Musculoskeletal: No clubbing, No peripheral edema, PICC line is placed in the left upper arm. Integumentary: No rashes. Lymphatics: No axilla or cervical lymphadenopathy. Neurology; alert awake oriented x3, no focal neurologic deficit - Studies Medications List Reviewed: Yes Assessment And Plan - Plan 69-year-old woman with a past medical history significant for COPD, chronic hypoxic respiratory failure on home oxygen (3.5 L), MAC infection, CHF, and hypertension presented to the emergency department tonight complaining of chest pain, and dyspnea 1 Progressive cavitary lesion in the left upper lobe by CT of the chest Stable, no sign of sepsis, no change in her oxygen requirement, chest x-ray after bronchoscopy reviewed, unchanged cavitary lesion in the left upper lobe 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 supplemental oxygen, AFB and fungal culture by bronchoscopy pending, awaiting QuantiFERON test, sputum culture ordered but sample unable to obtain, pulmonology planning on 2 months of IV amikacin, meropenem, oral linezolid. She is ready for discharge from medical standpoint once IV antibiotics set up
[2024-05-24] MEDS ORDERED: [UNRECOGNIZED DRUG - OTHER] IV SCH (14:00)
[2024-05-24] MEDS ORDERED: NA CHLORIDE 0.9% IV SCH (14:00)
[2024-05-24] MEDS: [UNRECOGNIZED DRUG - OTHER] IV SCH (14:13)
[2024-05-24] MEDS: NA CHLORIDE 0.9% IV SCH (14:13)
[2024-05-25 05:56] LABS: Albumin 2.2 g/dL (3.4-5.0); Albumin/Globulin Ratio 0.6 (1.1-1.8); Anion Gap 4.6 mEq/L (5.0-15.0); Bilirubin Total 0.3 mg/dL (0.2-1.0); Globulin 3.9 g/dL (2.3-3.5); Potassium 4.6 mEq/L (3.5-5.1); Protein, Total 6.1 g/dL (6.4-8.2)
--- NOTE | 2024-05-25 11:59 | P.DS ---
Admission Date: 05/16/24 Discharge Date: 05/25/24 Disposition: DC HOME/HOME HEALTH CARE Discharge Condition: GOOD Reason for Admission: Cavitary pneumonia Brief History of Present Illness: This is a 69-year-old woman with a past medical history significant for steroid- dependent advanced COPD, chronic hypoxic and hypercapnic respiratory failure on home oxygen (3.5 L), MAC infection, CHF, and hypertension presented to the emergency department complaining of chest pain, and dyspnea Hospital Course: She was started on broad spectrum antibiotics with amikacin, meropenem and linezolid for suspected progressive atypical Mycobacterium infection by organic lab worker. She underwent bronchoscopy with bronchoalveolar lavage without any complication. Bronchoscopy revealed no purulence or endobronchial lesion. Her oxygen requirement remained stable on nasal cannula 3 L/min during hospitalization, chest x-ray after bronchoscopy demonstrated no significant change. AFB and fungal culture by bronchoscopy QuantiFERON test are still pending at the time of discharge. A PICC line was placed for long-term home IV antibiotics. Plan is to continue IV amikacin, meropenem and oral linezolid for 2 months with follow-up lab per pulmonology recommendation. She is to follow-up with her organic lab worker after discharge. #1 presumed lung abscess by atypical Mycobacterium progressive cavitary lesion in the left upper lobe by CT of the chest #2 advanced steroid-dependent COPD #3 chronic hypoxic and hypercapnic respiratory failure on home oxygen related to #1 and #2 #4 controlled hypertension Vital Signs/Physical Exam: Temp Pulse Resp BP Pulse Ox 98.4 F 86 16 117/51 L 100 05/25/24 08:00 05/25/24 08:03 05/25/24 08:00 05/25/24 08:03 05/25/24 08:00 Other Physical/Emotional Findings: - Physical Exam. General: Emaciated, chronic ill-looking, , in no apparent distress,. HEENT: Normocephalic, atraumatic,. Neck: Supple, without JVD or goiter or thyroid mass. Respiratory: Normal breathing effort, distant but clear breath sound ,no crackles no wheezing or rhonchi. Cardiovascular: Regular rate and rhythm, S1, S2 normal, no murmur no gallop. Gastrointestinal: Normal bowel sounds, nondistended, nontender, No ascites, , No masses, no hepatosplenomegaly. Musculoskeletal: No clubbing, No peripheral edema, PICC line is placed in the left upper arm. Integumentary: No rashes. Lymphatics: No axilla or cervical lymphadenopathy. Neurology; alert awake oriented x3, no focal neurologic deficit Laboratory Data at Discharge: WBC 4.90 thou/uL (4.3-10.9) 05/22/24 05:44 Hgb 11.3 g/dL (12.0-15.0) L 05/22/24 05:44 Hct 35.0 % (36.0-45.0) L 05/22/24 05:44 Plt Count 308 thou/uL (152-406) 05/22/24 05:44 PT 12.2 SECONDS (9.4-12.5) 05/16/24 17:21 INR 1.09 05/16/24 17:21 APTT 26.3 SECONDS (24.3-36.9) 05/16/24 17:21 Sodium 136 mEq/L (136-145) 05/25/24 05:21 Potassium 4.6 mEq/L (3.5-5.1) 05/25/24 05:21 BUN 18 mg/dL (7-18) 05/25/24 05:21 Creatinine 0.35 mg/dL (0.55-1.02) L 05/25/24 05:21 Glucose 114 mg/dL (74-106) H 05/25/24 05:21 Phosphorus 2.9 mg/dL (2.5-4.9) 05/18/24 06:35 Magnesium 2.4 mg/dL (1.6-2.4) 05/22/24 05:44 Total Bilirubin 0.3 mg/dL (0.2-1.0) 05/25/24 05:21 AST 13 U/L (15-37) L 05/25/24 05:21 ALT 16 U/L (13-56) 05/25/24 05:21 Alkaline Phosphatase 49 U/L (45-117) 05/25/24 05:21 Triglycerides 92 mg/dL (<150) 05/17/24 05:52 Cholesterol 157 mg/dL (<200) 05/17/24 05:52 HDL Cholesterol 65 mg/dL (40-60) H 05/17/24 05:52 Cholesterol/HDL Ratio 2.42 05/17/24 05:52 Home Medications: Metoprolol Succinate 50 mg PO DAILY 07/20/18 Spironolactone [Aldactone*] 25 mg PO DAILY 09/11/21 Albuterol Inhaler [Ventolin Inhaler*] 2 inh IH Q6H PRN 03/05/23 Aspirin [Aspirin Regimen] 81 mg PO DAILY 03/05/23 Fluticasone/Umeclidin/Vilanter [Trelegy Ellipta 100-62.5-25] 1 each IH DAILY 03/05/23 Ipratropium [place] 2.5 ml NEB QID PRN 12/10/23 predniSONE [Deltasone*] 1 tab PO DAILY 12/10/23 Roflumilast 1 tab PO DAILY 05/17/24 Codeine/APAP [Tylenol #3*] 1 tab PO TID #10 tab 05/25/24 Linezolid [Zyvox*] 600 mg PO BID 7 Days #14 tab 05/25/24 New Medications: Codeine/APAP [Tylenol #3*] 1 tab PO TID #10 tab Linezolid [Zyvox*] 600 mg PO BID 7 Days #14 tab Physician Discharge Instructions: Diet: Activity: PHYSICIAN'S DISCHARGE INSTRUCTIONS Established Home Health: [facility] ([facility]) P:[phone] F:[phone] Diet: Regular Activity: Ad ellen Followup: Crispin Herrera DO [Primary Care Provider] -
[2024-05-25 14:25] VITALS: O2SAT 92
[2024-05-25 16:37] VITALS: BP 136/77; TEMP 98.4
--- NOTE | 2024-06-06 12:19 | EKG ---
Test Date: 2024-05-18 Test Time: 12:43:02 Voice Teacher: NIURKA MEASUREMENT RESULTS: Intervals: Rate: 121 ME: 136 QRSD: 84 QT: 322 QTc: 457 [place]: P: 89 ME: 136 QRS: 66 T: 85 INTERPRETIVE STATEMENTS: Sinus tachycardia Minimal voltage criteria for LVH, may be normal variant Borderline ECG Compared to ECG 05/16/2024 16:49:43 No significant changes Electronically Signed On 06-06-24 12:10:59 LOBBYIST by Darío Poole
--- NOTE | 2024-06-06 12:20 | EKG ---
Test Date: 2024-05-18 Test Time: 12:37:28 Bottling Line Attendant: NIURKA MEASUREMENT RESULTS: Intervals: Rate: 122 AK: 134 QRSD: 88 QT: 318 QTc: 453 [place]: P: 85 AK: 134 QRS: 68 T: 86 INTERPRETIVE STATEMENTS: Sinus tachycardia Minimal voltage criteria for LVH, may be normal variant Borderline ECG Compared to ECG 05/16/2024 16:49:43 No significant changes Electronically Signed On 06-06-24 12:11:02 RN PHYSICIAN OFFICE by Darío Poole
== END 2024-05-25 17:26 | disposition home health service (06) | DRG 177 ==
LOC: ER 16:20 → 4TH 20:52
PROVIDERS: ADMIT Hospitalist; ATTEND Internal Medicine
PROC: 0B9G8ZX Drainage of Left Upper Lung Lobe, Via Natural or Artificial Opening Endoscopic, Diagnostic (ICD-10-PCS; principal; 2024-05-22 12:00)
PROC: 02HV33Z Insertion of Infusion Device into Superior Vena Cava, Percutaneous Approach (ICD-10-PCS; 2024-05-23)
DX: A31.0 Pulmonary mycobacterial infection (principal); E43 Unspecified severe protein-calorie malnutrition; J85.1 Abscess of lung with pneumonia; N39.0 Urinary tract infection, site not specified; Z68.1 Body mass index [BMI] 19.9 or less, adult; J44.0 Chronic obstructive pulmonary disease with (acute) lower respiratory infection; J96.11 Chronic respiratory failure with hypoxia; I50.22 Chronic systolic (congestive) heart failure; J44.1 Chronic obstructive pulmonary disease with (acute) exacerbation; J96.12 Chronic respiratory failure with hypercapnia; J18.9 Pneumonia, unspecified organism; I11.0 Hypertensive heart disease with heart failure; A15.0 Tuberculosis of lung; N28.1 Cyst of kidney, acquired; I25.10 Atherosclerotic heart disease of native coronary artery without angina pectoris; Z88.0 Allergy status to penicillin; Z60.2 Problems related to living alone; Z85.3 Personal history of malignant neoplasm of breast; Z90.11 Acquired absence of right breast and nipple; Z90.49 Acquired absence of other specified parts of digestive tract; Z99.81 Dependence on supplemental oxygen; Z88.5 Allergy status to narcotic agent; Z79.82 Long term (current) use of aspirin; Z79.52 Long term (current) use of systemic steroids; Z86.73 Personal history of transient ischemic attack (TIA), and cerebral infarction without residual deficits; Z79.899 Other long term (current) drug therapy; Z87.891 Personal history of nicotine dependence; Z90.710 Acquired absence of both cervix and uterus; Z95.810 Presence of automatic (implantable) cardiac defibrillator
CPT/HCPCS: 36415; 36569; 71045; 71250; 76000; 80048; 80053; 80061; 80150; 81001; 82248; 82550; 83605; 83735; 83880; 84100; 84443; 84484; 85025; 85610; 85730; 86480; 87015; 87040; 87102; 87116; 87206; 88108; 88305; 88312; 93005; 94640; 94760; 96365; 97116; 97161; 99285; J0278; J1644; J1650; J2003; J2185; J2371; J2704; J2919; J7040; J7120; J7512; J7605; J7644

== ENCOUNTER 2024-10-16 15:50 | Inpatient (IN) | payer OTHER ==
[2024-10-16] MEDS ORDERED: IPRATROPIUM BROMIDE NEB PRN (17:40)
[2024-10-16] MEDS ORDERED: ALBUTEROL INHALER 200 PUFF/6.7 GM IH PRN (17:40)
[2024-10-16 17:54] LABS: Absolute Basophils 0.1 K/uL (0-0.5); Absolute Eosinophils 0.1 K/uL (0-0.5); Absolute Lymphocytes (CBC) 1.1 K/uL (0.7-4.9); Absolute Monocytes 0.7 K/uL (0.1-1.3); Absolute Neutrophil 4.7 K/uL (1.8-8.0); Basophils % 0.9 % (0-1.3); Eosinophils % 1.9 % (0-4.4); Hematocrit 32.3 % (36.0-45.0); Hemoglobin 10.1 g/dL (12.0-15.0); Lymphocytes % 16.3 % (15.3-44.8); MCH 24.9 pg (27.0-35.0); MCHC 31.3 g/dL (32.0-36.0); MCV 79.4 fL (80-100); Monocytes % 10.4 % (3.3-12.3); Neutrophils % 70.5 % (41.7-73.7); Nucleated Red Blood Cells % 0.1 % (0-0); Platelets 269 thou/uL (152-406); RBC Red Blood Cell Count 4.06 M/uL (3.86-4.86)
[2024-10-16] MEDS ORDERED: IPRATROPIUM BROM 0.5MG/2.5ML NEB PRN (18:04)
[2024-10-16 18:19] LABS: AST/SGOT 14 U/L (15-37); Albumin 3.2 g/dL (3.4-5.0); Albumin/Globulin Ratio 0.7 (1.1-1.8); Alkaline Phosphatase 80 U/L (45-117); Anion Gap 7.8 mEq/L (5.0-15.0); BUN Blood Urea Nitrogen 11 mg/dL (7-18); Bicarbonate 37 mEq/L (21-32); Bilirubin Total 0.2 mg/dL (0.2-1.0); Globulin 4.5 g/dL (2.3-3.5); Glomerular Filtration Rate 96 ml/min (=/>90); Glucose Level 123 mg/dL (74-106); Magnesium 2.2 mg/dL (1.6-2.4); NT PRO-BNP 576 pg/mL (<125); Potassium 3.8 mEq/L (3.5-5.1); Protein, Total 7.7 g/dL (6.4-8.2); Sodium Level 141 mEq/L (136-145); Troponin High Sensitivity 29.1 pg/mL (<58.9)
[2024-10-16 18:27] LABS: ALT/SGPT < 14 U/L (13-56)
--- NOTE | 2024-10-16 18:44 | RAD REPORT ---
EXAMINATION: ONE VIEW CHEST XR CLINICAL INDICATION: Female, 69 years old.,CHF TECHNIQUE: Frontal chest projection is submitted. Examination is limited by patient positioning and t echnique. COMPARISON: 05/23/2024 FINDINGS: Chronic changes of emphysema. Cavitary changes at the left apex with adjacent scarring again seen. Pe ripheral left mid to lower lung hazy opacification is slightly progressive since prior exam. Left stimulator battery pack unchanged in position. No pneumothorax or sizable effusion. The heart is nor mal in size. Mediastinal contours are unremarkable. IMPRESSION: Progressive appearance of peripheral left mid to lower lung hazy opacity, could reflect progressive a irspace disease.
[2024-10-16] MEDS: METOPROLOL TAR 25 MG TAB PO ONE (19:44)
[2024-10-16] MEDS: FUROSEMIDE 20 MG/ 2ML VIAL IV ONE (19:47)
[2024-10-16] MEDS: CODEINE 30MG/APAP 300MG TAB PO SCH (21:48)
--- NOTE | 2024-10-17 02:27 | HP ---
Date of Admission: 10/16/2024 Chief Complaint: Leg swelling, shortness of breath, and weight gain. History Of Present Illness: Ms. Guzman is a 69-year-old pleasant female patient, who came into my office today with 1-week history of bilateral leg swelling and has gained almost 8 to 10 pounds within last 2 to 3 weeks and has noted increased shortness of breath in last few days. The patient does have shortness of breath with activity, but with this weight gain and leg swelling, she has noted increased trouble with shortness of breath. She denies any chest pain. No fever, chills, cough, congestion, not coughing up any mucus. No vomiting, diarrhea. After she was evaluated at office, decision was made to admit her to hospital. Allergies: TO PENICILLIN CAUSING RASH, HIVES, AND ITCHING. HYDROCODONE CAUSING NAUSEA, VOMITING. MORPHINE CAUSING NAUSEA, VOMITING. Medications: Albuterol inhaler 2 puffs 4 times a day as needed, aspirin 81 mg daily, Zyrtec 10 mg daily, Hemocyte 1 tablet daily, Trelegy inhaler 1 puff daily, Atrovent nasal spray as needed, pantoprazole 40 mg daily, prednisone 10 mg daily, rosuvastatin 5 mg daily at bedtime. Review of Systems: Cardiovascular: As mentioned above. Respiratory: As mentioned above. All other systems reviewed and negative. 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 Past Surgical History: Cataract surgery, tonsillectomy, AICD placement in 2017, lumpectomy of the right breast due to cancer, cholecystectomy, appendectomy, hysterectomy, shoulder surgery, and elbow surgery. Family History: Father, congestive heart failure, heart disease. Mother, breast cancer. Social History: Prior history of smoking, not at present time. Use of alcohol, negative. Physical Examination: Vital Signs: Today at office, blood pressure 118/79, pulse 136, temperature 97.4, respiratory rate 18. Weight 117.6 pounds, height 64 inches. General: Awake, alert, oriented, not in distress. HEENT: Head atraumatic, normocephalic. Conjunctivae nonerythematous. Sclerae white. Mouth, no thrush or edema noted. Ears/Nose, no mass, lesion, discharge noted. Neck: Supple. No JVD, lymph nodes, bruit, thyromegaly noted. Lungs: Bilateral good equal air entry with presence of rales noted in both lung bases. Heart: Normal heart sounds, no murmur or gallop. Abdomen: Soft, bowel sounds normal. No guarding, rigidity, tenderness, mass, hepatosplenomegaly, distention, or bruit noted. Extremities: Bilateral 2+ leg edema involving lower 1/4 of both legs. Skin: No rash, ulcer, cellulitis. Lymphatics: No lymph node enlargement in neck, supraclavicular, infraclavicular region. Neuro: No focal neurological deficit. Chest: Unremarkable. External Genitalia: Deferred. Rectal: Deferred. Laboratory Data: WBC 6.7, hemoglobin 10.1, platelets 269. Sodium 141, potassium 3.8, chloride 100, bicarb 37, BUN 11, creatinine 0.64, glucose 123. Liver function tests unremarkable. Troponin 29.1. ProBNP 576. TSH 1.160. Chest x-ray had shown left upper lobe cavitary lesion unchanged with some surrounding scarring and opacity in the left middle and lower lobe. Impression: 1. Congestive heart failure, chronic, systolic, with acute exacerbation. 2. Urinary tract infection. 3. COPD. 4. Chronic respiratory failure with hypoxia, on continuous home oxygen and steroid dependent. 5. Hypertension. 6. Hyperlipidemia. 7. Coronary artery disease. 8. Gastroesophageal reflux disease. Plan: We will admit the patient to hospital for further evaluation and management of this problem. The patient is appropriate for inpatient and is expected to spend 2 midnights in the hospital. We will start her on IV Lasix per order for congestive heart failure problem and we will get echo with Doppler done on her during this hospitalization. We will consult house officer. For her hypertension and rapid heart rate, we will go ahead and start her on metoprolol 25 mg twice a day, first dose will be given this evening as soon as possible. For her COPD, we will continue her inhaler per order. No need for further intervention on it. The patient has severe COPD and she is steroid and oxygen dependent and we will continue both of these therapy as well. We will continue her pantoprazole for gastroesophageal reflux disease. No need for further intervention. For urinary tract infection, we will send urine for culture. Urinalysis done at office was abnormal consistent with urinary tract infection. She does have some dysuria in last few days. We will start on empiric antibiotic while waiting on culture. Total time spent 80 minutes including review of prior office visit record, making arrangements for hospital admission, performing today's evaluation and management. Overall, prognosis is guarded. KAYLEY/MODL Voice ID: [id number] HUGO
[2024-10-17] MEDS ORDERED: ROFLUMILAST 250 MCG PO SCH (09:00)
[2024-10-17] MEDS: predniSONE 10 MG TAB PO SCH (09:49)
[2024-10-17] MEDS: ROFLUMILAST 500 MCG TABLET PO SCH (09:49)
[2024-10-17] MEDS: ASPIRIN EC 81 MG TAB PO SCH (09:50)
[2024-10-17] MEDS: CEFTRIAXONE 1,000 MG in NA CHLORIDE 0.9% 50 ML IVPB SCH (09:50)
[2024-10-17] MEDS: METOPROLOL TAR 25 MG TAB PO SCH (09:50)
[2024-10-17] MEDS: ENOXAPARIN 40 MG/0.4 ML SQ SCH (09:50)
[2024-10-17] MEDS: FUROSEMIDE 20 MG/ 2ML VIAL IV SCH (09:50)
[2024-10-17] MEDS: VILANTER IH SCH (09:50)
[2024-10-17] MEDS: UMECLIDIN IH SCH (09:50)
[2024-10-17] MEDS: FLUTICASONE IH SCH (09:50)
--- NOTE | 2024-10-17 11:08 | P.CNS ---
Date of Consult: 10/17/24 Chief Complaint: SOB History of Present Illness: Patient with PMH of HFrEF, recovered, AICD placement, also history of MAC, lung disease, COPD on home oxygen, presented with worsening SOB, lower extremities swelling and weight gain, denies chest pain, no palpitations, no syncope. Allergies Penicillins Allergy (Severe, Verified 11/25/23 08:00) Itching/Hives/Rash hydrocodone Adverse Reaction (Verified 11/25/23 08:00) Nausea/Vomiting morphine Adverse Reaction (Verified 11/25/23 08:00) VOMITING Home medications list reviewed: Yes Home Medications: Metoprolol Succinate 50 mg PO DAILY 07/20/18 Spironolactone [Aldactone*] 25 mg PO DAILY 09/11/21 Albuterol Inhaler [Ventolin Inhaler*] 2 inh IH Q6H PRN 03/05/23 Aspirin [Aspirin Regimen] 81 mg PO DAILY 03/05/23 Fluticasone/Umeclidin/Vilanter [Trelegy Ellipta 100-62.5-25] 1 each IH DAILY 03/05/23 Ipratropium [place] 2.5 ml NEB QID PRN 12/10/23 predniSONE [Deltasone*] 1 tab PO DAILY 12/10/23 Roflumilast 1 tab PO DAILY 05/17/24 Codeine/APAP [Tylenol #3*] 1 tab PO TID #10 tab 05/25/24 - Past Medical/Surgical History Diabetic: No -: HTN, Breast Ca, R lumpectomy ' -: 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 -: TIA -: UTI -: Chronic systolic congestive heart failure -: chronic hypoxic respiratory failure on 3.5 L home oxygen -: hysterectomy, tonsilectomy -: Thomas shoulder rotator cuff, appy, choly -: L elbow -: thomas cataracts -: abdominal surgery with [place] Psychosocial/ Personal History: Lives at home alone - Family History Father Medical History: Heart disease Notes: chf Mother Medical History: Cancer Notes: breast cancer - Social History Smoking Status: Current every day smoker Alcohol use: Yes CD- Drugs: No Caffeine use: Yes Place of Residence: Home Review of Systems 10-point ROS is otherwise unremarkable Physical Examination Temp Pulse Resp BP Pulse Ox 97.5 F 78 16 121/57 L 100 10/17/24 08:00 10/17/24 08:00 10/17/24 09:49 10/17/24 08:00 10/17/24 08:00 General: Alert, In no apparent distress HEENT: Atraumatic, PERRLA, Mucous membr. moist/pink, EOMI, Sclerae nonicteric Neck: Supple, 2+ carotid pulse no bruit, No LAD, Without JVD or thyroid abnormality Respiratory: Diminished Cardiovascular: Regular rate/rhythm, Normal S1 S2 Gastrointestinal: Normal bowel sounds, No tenderness Musculoskeletal: No tenderness Integumentary: No rashes Neurological: Normal gait, Normal speech, Normal tone, Normal affect Lymphatics: No axilla or inguinal lymphadenopathy Laboratory Data (last 24 hrs) 10/16/24 10/16/24 17:41 17:41 WBC 6.70 Hgb 10.1 L Hct 32.3 L Plt Count 269 Sodium 141 Potassium 3.8 BUN 11 Creatinine 0.64 Glucose 123 H Magnesium 2.2 Total Bilirubin 0.2 AST 14 L ALT < 14 Alkaline Phosphatase 80 - Problems (1) Congestive heart failure (CHF) Current Visit: No Status: Acute Plan: Patient with history of low EF, she mention that she was referred for possible heart transplant almost 7 years ago and she got an ICD, but since they placed her on medications, he EF improved, she used to follow up with Dr. Huntley in [facility]. Now patient got no signs of volume overload, her compliance with medications is not good as she take then when her BP is high as they cause drop in BP. Continue Lasix 20 mg IV daily. continue to monitor input and output and electrolytes. Echo is pending (2) HTN (hypertension) Current Visit: No Status: Acute Plan: continue Lopressor 25 mg po BID (3) Sinus tachycardia Current Visit: No Status: Acute Plan: continue lopressor 25 mg po BID Continue to monitor on tele
--- NOTE | 2024-10-17 11:46 | EKG ---
Test Date: 2024-10-16 Test Time: 17:50:21 Garage Helper: ANEESH MEASUREMENT RESULTS: Intervals: Rate: 105 IA: 166 QRSD: 84 QT: 358 QTc: 473 [place]: P: 54 IA: 166 QRS: 59 T: 215 INTERPRETIVE STATEMENTS: Sinus tachycardia ST & T wave abnormality, consider inferior ischemia Abnormal ECG Compared to ECG 05/18/2024 12:43:02 ST (T wave) deviation now present Possible ischemia now present Left ventricular hypertrophy no longer present Electronically Signed On 10-17-24 11:45:27 CDT by Darío Poole
--- NOTE | 2024-10-17 13:12 | ECHO ---
HEIGHT: 5 ft 4 in WEIGHT: 117 lb 0 oz DATE OF STUDY: 10/17/[address]: Matthew Palmer MD 2-DIMENSIONAL: YES M.MODE: YES DOPPLER: YES COLOR FLOW: YES TDS: PORTABLE: YES DEFINITY: BUBBLE STUDY: DIAGNOSIS: CONGESTIVE HEART FAILURE CARDIAC HISTORY: CATHERIZATION: SURGERY: PROSTHETIC VALVE: PACEMAKER: MEASUREMENTS (cm) DIASTOLIC (NORMALS) SYSTOLIC (NORMALS) IVSd 1.1 (0.6-1.2) LA Diam 2.2 (1.9-4.0) LVEF 50% LVIDd 3.7 (3.5-5.7) LVIDs 2.7 (2.0-3.5) %FS 27% LVPWd 1.1 (0.6-1.2) Ao Diam 2.7 (2.0-3.7) 2 DIMENSIONAL ASSESSMENT: RIGHT ATRIUM: NORMAL LEFT ATRIUM: NORMAL RIGHT VENTRICLE: NORMAL LEFT VENTRICLE: NORMAL TRICUSPID VALVE: MILD TRICUSPID REGURGITATION MITRAL VALVE: SEVERE MITRAL ANNULAR CALCIFICATION PULMONIC VALVE: NORMAL AORTIC VALVE: NORMAL PERICARDIAL EFFUSION: NONE AORTIC ROOT: NORMAL LEFT VENTRICULAR WALL MOTION: NORMAL DOPPLER/COLOR FLOW: GRADE I DIASTOLIC DYSFUNCTION COMMENTS: 1. LOW NORMAL LEFT VENTRICULAR SYSTOLIC FUNCTION, EJECTION FRACTION 50%, NORMAL WALL MOTION 2. GRADE I DIASTOLIC DYSFUNCTION 3. NORMAL FILLING PRESSURE (RIGHT ATRIAL PRESSURE 0-5 mmHg) TECHNOLOGIST: GWENDOLYN BARONE
[2024-10-17] MEDS ORDERED: POTASSIUM CL SA 10 MEQ TAB PO ONE (21:00)
[2024-10-17] MEDS: POTASSIUM CL SA 10 MEQ TAB PO ONE (21:11)
[2024-10-18 00:07] LABS: Renal Epithelial <5 /HPF (None Seen); Specific Gravity 1.012 (1.005-1.030); Sqamous Epithelial <5 /HPF (None Seen); Transitional Epithelial <5 /HPF (None Seen); Urine Bacteria None Seen /HPF (<20); Urine Bilirubin NEGATIVE (Negative); Urine Blood Negative (Negative); Urine Clarity Clear (Clear); Urine Color Light-Yellow (Yellow); Urine Culture Reflex Order REFLEXED; Urine Glucose NEGATIVE (Negative); Urine Ketones NEGATIVE (Negative); Urine Microscopic Reflex YN ORDER UMIC; Urine Nitrite NEGATIVE (Negative); Urine Protein NEGATIVE (Negative); Urine RBC <5 /HPF (None Seen); Urine Urobilinogen Normal (Normal)
--- NOTE | 2024-10-18 00:18 | PN ---
Date of Progress Note: 10/17/2024 Subjective: The patient was seen this morning for followup. Overall, she was feeling better today t piedra yesterday. She remains on telemetry and I did review her cardiac monitor readings. She has re mained in sinus rhythm. In the beginning when she was first placed on telemetry, her heart rate was around 120. It was sinus tachycardia and subsequently has remained in sinus rhythm with heart rate l ess than 100. This morning when I saw her, she was lying in bed, not in any distress. Objective: Vital Signs: Reviewed. HEENT: Unremarkable. Lungs: Clear to auscultation. Not using any accessory muscles of respiration. Heart: Sounds normal. Abdomen: Soft. Bowel sounds normal. No guarding, rigidity, tenderness, distention. Extremities: No leg edema. The patient's leg edema that was noted yesterday upon admission has comp letely resolved. Impression: 1. Congestive heart failure. 2. Chronic obstructive pulmonary disease. 3. Chronic respiratory failure with hypoxia. Plan: We will go ahead and continue current medications. Continue current diuretic therapy, which i s furosemide 20 mg IV daily. Echo with Doppler will be done today. We will send the urine for cultu re and start the patient on ceftriaxone. Follow up on urine culture results and then decide about cu lture specific antibiotic for urinary tract infection. Her urinalysis done at office prior to admiss ion yesterday was abnormal, consistent with urinary tract infection and she does have dysuria. I did talk to Dr. Poole today and we are waiting on Pulmonary consultation from Dr. Young for abnormal chest x-ray. I will see her tomorro w for followup. KAYLEY/MODL Voice ID: [id number] Report ID: [id number]
[2024-10-18 08:30] LABS: Anion Gap 6.6 mEq/L (5.0-15.0)
[2024-10-18 08:33] LABS: Potassium 4.6 mEq/L (3.5-5.1)
[2024-10-18 09:22] VITALS: BP 104/54; TEMP 97.8
[2024-10-18 10:33] VITALS: O2SAT 100
--- NOTE | 2024-10-18 11:01 | P.PN ---
Subjective Date of Service: 10/18/24 Chief Complaint: SOB Subjective: No new changes, No C/O voiced, Tolerating diet, Ambulating, Improving Review of Systems 10-point ROS is otherwise unremarkable Physical Examination - Vital Signs Temperature: 97.8 F Blood Pressure: 104/54 Pulse: 83 Respirations: 20 Pulse Ox (%): 100 - Physical Exam General: Alert, In no apparent distress HEENT: Atraumatic, PERRLA, EOMI Neck: Supple, JVD not distended Respiratory: Clear to auscultation bilaterally, Normal air movement Cardiovascular: Regular rate/rhythm, Normal S1 S2 Gastrointestinal: Normal bowel sounds, No tenderness Musculoskeletal: No tenderness Integumentary: No rashes Neurological: Normal speech, Normal tone, Normal affect Lymphatics: No axilla or inguinal lymphadenopathy - Studies Laboratory Data (last 24 hrs) 10/18/24 07:50 Sodium 139 Potassium 4.6 BUN 14 Creatinine 0.51 L Glucose 81 Medications List Reviewed: Yes Assessment And Plan - Current Problems (Diagnosis) (1) Congestive heart failure (CHF) Status: Acute Plan: Patient with history of low EF, she mention that she was referred for possible heart transplant almost 7 years ago and she got an ICD, but since they placed her on medications, he EF improved, she used to follow up with Dr. Huntley in [facility]. repeated Echo shows low normal EF of 50%, grade I DD and normal filling pressures Now patient got no signs of volume overload, her compliance with medications is not good as she take then when her BP is high as they cause drop in BP. switch lasix to 20 mg po daily (2) HTN (hypertension) Status: Acute Plan: continue Lopressor 25 mg po BID (3) Sinus tachycardia Status: Acute Plan: continue lopressor 25 mg po BID outpatient follow up with cardiology for further work up.
--- NOTE | 2024-10-21 09:44 | P.CNS ---
Date of Consult: 10/17/24 Reason for Consult: COPD history of Mycobacterium abscessus infection Chief Complaint: SOB History of Present Illness: Patient is 69 years of age with a history of terminal COPD admitted to the hospital with lower extremity edema and tachycardia as far as the lungs are concerned she has a history of protracted course of Mycobacterium abscessus infection that was treated with prolonged course of antibiotics she denies any worsening of her lung function denies any fever chills or weight loss is feeling a little better Allergies Penicillins Allergy (Severe, Verified 11/25/23 08:00) Itching/Hives/Rash hydrocodone Adverse Reaction (Verified 11/25/23 08:00) Nausea/Vomiting morphine Adverse Reaction (Verified 11/25/23 08:00) VOMITING Home Medications: Metoprolol Succinate 50 mg PO DAILY 07/20/18 Spironolactone [Aldactone*] 25 mg PO DAILY 09/11/21 Albuterol Inhaler [Ventolin Inhaler*] 2 inh IH Q6H PRN 03/05/23 Aspirin [Aspirin Regimen] 81 mg PO DAILY 03/05/23 Fluticasone/Umeclidin/Vilanter [Trelegy Ellipta 100-62.5-25] 1 each IH DAILY 03/05/23 Ipratropium Collison 2.5 ml NEB QID PRN 12/10/23 predniSONE [Deltasone*] 1 tab PO DAILY 12/10/23 Roflumilast 1 tab PO DAILY 05/17/24 Codeine/APAP [Tylenol #3*] 1 tab PO TID #10 tab 05/25/24 - Past Medical/Surgical History Diabetic: No -: HTN, Breast Ca, R lumpectomy ' -: 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 -: TIA -: UTI -: Chronic systolic congestive heart failure -: chronic hypoxic respiratory failure on 3.5 L home oxygen -: hysterectomy, tonsilectomy -: Thomas shoulder rotator cuff, appy, choly -: L elbow -: thomas cataracts -: abdominal surgery with K[place]ala Psychosocial/ Personal History: Lives at home alone - Family History Father Medical History: Heart disease Notes: chf Mother Medical History: Cancer Notes: breast cancer - Social History Smoking Status: Current every day smoker Alcohol use: Yes CD- Drugs: No Caffeine use: Yes Place of Residence: Home Review of Systems 10-point ROS is otherwise unremarkable General: Weakness Respiratory: Shortness of Breath Physical Examination Temp Pulse Resp BP Pulse Ox 97.8 F 83 20 104/54 L 100 10/18/24 11:01 10/18/24 11:01 10/18/24 11:01 10/18/24 11:01 10/18/24 11:01 General: Alert, Oriented x3 Neck: Supple Respiratory: Diminished, Expiratory wheezes Cardiovascular: No edema, Normal pulses, Regular rate/rhythm - Problems (1) Congestive heart failure Status: Acute Plan: Patient is 69 years of age admitted with slight worsening of her congestive hea rt failure is doing better patient is on spironolactone may benefit from intermittent low-dose 20 mg of Lasix he is doing better swelling has declined (2) Mycobacterium abscessus infection Status: Acute Plan: Patient has an extensive history of Mycobacterium abscessus infection chest x- ray has improved she is now caught some thin-walled cavitary changes in the left upper lobe with significant improvement from the past denies any fever or weight loss (3) COPD (chronic obstructive pulmonary disease) Status: Acute Plan: Patient has terminal COPD is on optimal therapy with Roflumilast and Breztri patient has home oxygen stable for discharge continue with low-dose prednisone Qualifiers: Emphysema type: unspecified
--- NOTE | 2024-10-21 11:01 | DS ---
Date of Discharge: 10/18/2024 Disposition: Discharged to go home. Physical Examination: HEENT: Unremarkable. Lungs: Clear to auscultation. Heart: Sounds normal. Abdomen: Soft, bowel sounds normal. No guarding, rigidity, tenderness, or distention. Extremities: No leg edema. Laboratory Data: Upon admission, WBC 6.7, hemoglobin 10.1, platelets 269. Sodium 141, potassium 3.8, chloride 100, bicarb 37, BUN 11, creatinine 0.64, glucose 123. Liver function tests unremarkable. Troponin 29.1. ProBNP 576. TSH 1.160. Chest x-ray had shown left upper lobe cavitary lesion unchanged with some surrounding scarring and opacity in the left middle and lower lobe. Echocardiogram had shown ejection fraction 50%. Instructions/medications: Continue all prior home medication except following changes. 1. Take furosemide 20 mg 1 tablet by mouth daily. 2. Take potassium chloride 10 mEq, take 1 capsule by mouth daily. 3. Stop spironolactone. 4. Start cefuroxime 250 mg 2 times a day for 5 days, take it with food. 5. Follow up at my office next week and bring all medication bottles to the office. 6. Follow up with Dr. Young in 1-2 weeks. Hospital Course: This is a 69-year-old pleasant female patient who was admitted to the hospital with complaints of leg swelling, shortness of breath, and weight gain. Please see dictated H and P for more information. The patient came into office with this problem after she was evaluated. Decision was made to admit her to the hospital. Cardiology consultation was obtained from Dr. Poole and Pulmonary consultation was obtained from Dr. Young. I did communicate with both of those physicians, Dr. Poole has not suggested any further intervention except continued management as per order and Dr. Young also informed me that he has known this patient very long time and has successfully treated her atypical mycobacterium infection and at this point, her lungs are actually looking better than before, so he has not recommended any further intervention at this point. The patient's leg swelling improved very well with IV Lasix and with low-dose Lasix. She has responded well, so our plan is to continue that. The patient was discharged to go home in stable condition today with above- mentioned medications and instructions. Final Diagnoses: 1. Congestive heart failure, chronic, systolic, with acute exacerbation. 2. Urinary tract infection. 3. Chronic obstructive pulmonary disease. 4. Chronic respiratory failure with hypoxia, on continuous home oxygen and steroid therapy. 5. Hypertension. 6. Hyperlipidemia. 7. Coronary artery disease. 8. Gastroesophageal reflux disease. 9. Total time spent 35 minutes. KAYLEY/NAYA Voice ID: [id number] Report ID: [id number] MTDD
== END 2024-10-18 10:54 | disposition home or self-care (01) | DRG 291 ==
LOC: 2ND 15:50
PROVIDERS: ADMIT Internal Medicine; ATTEND Internal Medicine
DX: I11.0 Hypertensive heart disease with heart failure (principal); I50.23 Acute on chronic systolic (congestive) heart failure; J96.11 Chronic respiratory failure with hypoxia; N39.0 Urinary tract infection, site not specified; A31.8 Other mycobacterial infections; E78.5 Hyperlipidemia, unspecified; J44.9 Chronic obstructive pulmonary disease, unspecified; K21.9 Gastro-esophageal reflux disease without esophagitis; I25.10 Atherosclerotic heart disease of native coronary artery without angina pectoris; Z88.0 Allergy status to penicillin; Z88.5 Allergy status to narcotic agent; Z85.3 Personal history of malignant neoplasm of breast; Z90.49 Acquired absence of other specified parts of digestive tract; Z79.52 Long term (current) use of systemic steroids; Z79.82 Long term (current) use of aspirin; Z86.73 Personal history of transient ischemic attack (TIA), and cerebral infarction without residual deficits; Z79.899 Other long term (current) drug therapy; Z60.2 Problems related to living alone
CPT/HCPCS: 36415; 71045; 80048; 80053; 81001; 83735; 83880; 84443; 84484; 85025; 87086; 87088; 93005; 93306; J0696; J1650; J1938; J7512

== ENCOUNTER 2025-01-16 07:15 | Day surgery (SDC) | payer OTHER ==
[2025-01-11 14:49] LABS: PT Prothrombin Time 11.6 SECONDS (10-13.0); PTT, Activated Partial Thromb 26.0 SECONDS (27.2-37.4); Protime INR 1.03
[2025-01-11 15:12] LABS: Anion Gap 6.2 mEq/L (5.0-15.0); BUN Blood Urea Nitrogen 14.0 mg/dL (7-18); Glucose Level 124.0 mg/dL (74-106); Potassium 4.2 mEq/L (3.5-5.1)
[2025-01-11 15:13] LABS: Absolute Lymphocytes (CBC) 0.6 K/uL (0.7-4.9); Hematocrit 35.2 % (36.0-45.0); Hemoglobin 11.3 g/dL (12.0-15.0); MCH 26.6 pg (27.0-35.0); MCHC 32.1 g/dL (32.0-36.0); MCV 82.9 fL (80-100); MPV 8.8 fL (7.6-11.3); Nucleated RBC Absolute Count 0.0 (0-0); Nucleated Red Blood Cells % 0.2 % (0-0); RBC Red Blood Cell Count 4.24 M/uL (3.86-4.86); White Blood Count 6.90 thou/uL (4.3-10.9)
[2025-01-16] MEDS ORDERED: ATROPINE SULF 1 MG/10 ML SYR IV ONE (07:18)
[2025-01-16] MEDS ORDERED: NITROGLYCERIN/D5W 50 MG/250 ML BTL IV ONE (07:18)
[2025-01-16] MEDS ORDERED: LIDOCAINE 1% 20 ML MDV ONE (07:18)
[2025-01-16] MEDS ORDERED: HEPA 1000U/500MLS 2,000 UNIT/1,000 ML BAG IV ONE (07:18)
[2025-01-16] MEDS ORDERED: NA CHLORIDE 0.9% 500 ML ONE (07:18)
[2025-01-16] MEDS ORDERED: MIDAZOLAM HCL 2 MG/2 ML INJ ONE (07:25)
[2025-01-16] MEDS ORDERED: FENTANYL CITR 100 MCG/2 ML ONE (07:25)
[2025-01-16] MEDS ORDERED: ONDANSETRON 4 MG/2 ML VIAL ONE (08:01)
[2025-01-16] MEDS ORDERED: HEPARIN 10,000 UNIT/10 ML VIAL IV ONE (08:35)
[2025-01-16] MEDS ORDERED: CLOPIDOGREL 75 MG TABLET ONE (09:13)
[2025-01-16] MEDS ORDERED: CODEINE 30MG/APAP 300MG TAB PO ONE (10:00)
[2025-01-16 12:45] VITALS: O2SAT 99
[2025-01-16 12:47] VITALS: BP 114/48
--- NOTE | 2025-01-16 20:22 | OP ---
Date of Procedure: 01/16/2025 Surgeon: Darío Poole Procedures Performed: 1. Lower abdominal aortogram with peripheral angiogram. 2. MANAGER CIVIL of the right SFA stenosis. Indication For Procedure: Claudication, abnormal ELY. Complications: None. Estimated Blood Loss: Less than 50 cc. Access: Left common femoral artery closed by Mynx. Sedation Time: 30 minutes with 2 of Versed and 50 of fentanyl. Description Of Procedure: After risks, and benefits, and alternatives were explained to the patient, patient agreed to proceed with procedure and signed informed consent. The patient was brought back to the labor relations officer, prepped and draped in sterile fashion. Time-out was performed. Sedation was admini stered. Next, left common femoral artery access was obtained using ultrasound-guided micropuncture t echnique. The pigtail catheter was advanced to the lower abdominal aorta. Bilateral runoff was done using that catheter. That catheter was later exchanged for a destination catheter into the right co mmon femoral artery. A Glidewire was passed across the lesion. We pre-dilated the mid right SFA lesion with the regular 3 .0 mm balloon that was followed by drug-coated balloon 4.0 in diameter for 2 minutes. Repeat angiogr am shows MARIPOSA-3 flow, so catheter was removed. Sheath was removed and Mynx was applied. Hemostasis was achieved. The patient was moved back to Recovery in stable condition. Findings: 1. Lower abdominal aorta is patent. 2. Right common iliac/external iliac artery/internal iliac artery patent. 3. Right common femoral artery and profunda arteries are patent. 4. Right SFA with mid 70% disease, status post MANAGER CIVIL. The lesion is down to less than 10%. 5. Right anterior tibial is patent. 6. Right posterior tibial and peroneal are occluded. 7. One runoff on the right system. 8. Left common iliac/external iliac artery/internal iliac artery/common femoral/SFA patent. 9. Left posterior tibial artery is patent. 10. Left anterior tibial and peroneals are occluded. 11. One runoff on the left leg. Assessment And Plan: 1. Significant right SFA disease, status post MANAGER CIVIL as above. 2. One runoff on bilateral legs. Plan: 1. Aspirin 81 mg daily. 2. Plavix 75 mg daily. 3. Exercise program and if the patient is symptomatic, we will refer to Vascular. FAITH/MODL Voice ID: [id number] Report ID: [id number]
== END 2025-01-16 12:25 | disposition home or self-care (01) ==
LOC: CCL 07:15
PROVIDERS: ATTEND Internal Medicine Interventional Cardiology
DX: I70.223 Atherosclerosis of native arteries of extremities with rest pain, bilateral legs (principal); I70.92 Chronic total occlusion of artery of the extremities; I25.10 Atherosclerotic heart disease of native coronary artery without angina pectoris; I50.32 Chronic diastolic (congestive) heart failure; E78.5 Hyperlipidemia, unspecified; J44.1 Chronic obstructive pulmonary disease with (acute) exacerbation; F17.210 Nicotine dependence, cigarettes, uncomplicated; Z79.82 Long term (current) use of aspirin; Z79.899 Other long term (current) drug therapy; Z88.0 Allergy status to penicillin; Z88.5 Allergy status to narcotic agent; Z82.49 Family history of ischemic heart disease and other diseases of the circulatory system
CPT/HCPCS: 93005; 85025; 80048; 36415; 85610; 85730; 75625; 36247; 75716; 37224; 76937; C1893; C1769; J2003; J2250; J3010; J2405; J1644; J7040; C1760; 36200; 36245; 75630; 99152; J0461

== ENCOUNTER 2025-02-11 10:45 | Inpatient (IN) | payer OTHER ==
[2025-02-11] MEDS ORDERED: LEVALBUTEROL 1.25 MG/3 ML NEB ONE ×2 (11:18→12:31)
[2025-02-11 11:27] LABS: Absolute Lymphocytes (CBC) 0.6 K/uL (0.7-4.9); Hematocrit 29.9 % (36.0-45.0); Hemoglobin 9.3 g/dL (12.0-15.0); MCH 26.5 pg (27.0-35.0); MCHC 31.1 g/dL (32.0-36.0); MCV 85.1 fL (80-100); MPV 8.6 fL (7.6-11.3); Nucleated RBC Absolute Count 0.0 (0-0); Nucleated Red Blood Cells % 0.0 % (0-0); RBC Red Blood Cell Count 3.51 M/uL (3.86-4.86); White Blood Count 8.90 thou/uL (4.3-10.9)
[2025-02-11 11:39] LABS: PT Prothrombin Time 13.2 SECONDS (10-13.0); PTT, Activated Partial Thromb 26.7 SECONDS (27.2-37.4); Protime INR 1.17
[2025-02-11 11:41] LABS: Influenza A Ag Negative; Influenza B Ag Negative; SARS-CoV-2 Antigen Rapid Res Negative (Negative)
[2025-02-11 11:49] LABS: Albumin 2.5 g/dL (3.4-5.0); Albumin/Globulin Ratio 0.6 (1.1-1.8); Alkaline Phosphatase 60 U/L (45-117); Anion Gap 9.8 mEq/L (5.0-15.0); BUN Blood Urea Nitrogen 8 mg/dL (7-18); Globulin 4.3 g/dL (2.3-3.5); Glucose Level 153 mg/dL (74-106); NT PRO-BNP 899 pg/mL (<125); Potassium 3.8 mEq/L (3.5-5.1); Troponin High Sensitivity 23.5 pg/mL (<58.9)
--- NOTE | 2025-02-11 12:01 | RAD REPORT ---
Procedure: Chest Single View HISTORY: Shortness of breath COMPARISON: November 2024 and 2023 FINDINGS: Left upper lobe cavity without significant change presumably the sequela of prior infection. Lungs appear clear of acute infiltrate. Lungs are hyperaerated. No significant pleural effusion noted. The heart is normal size. IMPRESSION: No acute abnormality is displayed.
[2025-02-11 12:14] LABS: ALT/SGPT < 14 U/L (13-56); AST/SGOT < 10 U/L (15-37)
[2025-02-11 12:14] LABS: Sqamous Epithelial <5 /HPF (None Seen); Urine Culture Reflex Order NOT NEEDED; Urine Microscopic Reflex YN ORDER UMIC
--- NOTE | 2025-02-11 12:21 | EDPHYS ---
Physician Documentation [facility] [place], [place] Name: Patricia Case Age: 69 yrs Sex: Female : 1955 Arrival Date: 02/11/2025 Time: 10:45 Bed 18 Private MD: ED Physician Sanchez Kraft HPI: 02/11 11:28 This 69 yrs old Female presents to ER via EMS with unknown complaint. rn 11:28 Patient reports palpitations and fast heart rate with generalized weakness and malaise rn and cough for 4 days. Reports subjective fever at home with chills and new cough. No hemoptysis. Patient has CHF and COPD. Reports orthopnea and dyspnea on exertion. No trauma.. Historical: - Allergies: 10:56 PENICILLINS (rash); ph - PMHx: 10:56 breast cancer; CHF; COPD; Hypertensive disorder; Mycobacterium Avium; Pneumonia; Right ph kidney cyst; - PSHx: 10:56 Appendectomy; Thomas rotator cuff; cataracts; Cholecystectomy; defibrillator; Elbow; ph hysterectomy; Right arm lumpectomy; right mastectomy; Tonsillectomy; - Immunization history:: Adult Immunizations unknown. - Infectious Disease History:: Denies. - Family history:: not pertinent. - Hospitalizations: : No recent hospitalization is reported. ROS: 11:28 Constitutional: Positive for fever and chills Eyes: Negative for injury, pain, redness, rn and discharge, Cardiovascular: Negative for chest pain, palpitations, and edema, Respiratory: Positive for cough and shortness of breath Abdomen/GI: Negative for abdominal pain, nausea, vomiting, diarrhea, and constipation, MS/Extremity: Negative for injury and deformity, Skin: Negative for injury, rash, and discoloration, Neuro: Positive for generalized weakness Exam: 11:14 ECG was reviewed by the Attending Physician. rn 11:28 Constitutional: This is a well developed, well nourished patient who is awake, alert, rn tachypneic Head/Face: Normocephalic, atraumatic. ENT: Dry mucous membranes, no stridor Chest/axilla: Shallow ulceration right anterior chest wall without signs of infection Cardiovascular: Tachycardic, regular Respiratory: Mild to moderate tachypnea, wheezing and crackles throughout Abdomen/GI: Soft, nontender Vital Signs: 10:53 BP 118 / 54; Pulse 128; Resp 22; Temp 98.8(O); Pulse Ox 98% on 3 lpm NC; Weight 55.34 ph kg; Height 5 ft. 4 in. ; 11:53 BP 116 / 71; Pulse 111; Resp 21; Pulse Ox 100% on Nebulizer Mask; ph 13:03 BP 108 / 56; Pulse 119; Resp 16; Pulse Ox 99% on 3 lpm NC; ph 13:50 BP 102 / 67; Pulse 109; Resp 19; Temp 98.4; Pulse Ox 98% on 3 lpm NC; ph 14:37 BP 109 / 62; Pulse 108; Resp 18; Pulse Ox 98% on 3 lpm NC; ph 10:53 Body Mass Index 20.94 (55.34 kg, 162.56 cm) ph MDM: 10:51 Medical Screening Exam initiated rn 12:19 Differential Diagnosis altered mental status, Viral illness, CHF exacerbation, COPD rn exacerbation. Data reviewed: vital signs, nurses notes, lab test result(s), EKG, radiologic studies, plain films, and as a result, I will admit patient. Consideration of Admission/Observation Patient was admitted/placed on observation. Escalation of care including admission/observation considered. Management of patient was discussed with the following: Hospitalist: Case discussed with hospitalist service, will admit. Independent interpretation of the following test(s) in the Emergency Department EKG: See my EKG interpretation above X-Ray: My interpretation is Chest x-ray images negative for pneumonia or pneumothorax per my interpretation. Care significantly affected by the following chronic conditions: Congestive Heart Failure, Chronic Obstructive Pulmonary Disease. Counseling: I had a detailed discussion with the patient and/or guardian regarding the historical points, exam findings, and any diagnostic results supporting the discharge/admit diagnosis, lab results, radiology results, the need for further work-up and treatment in the hospital. Response to treatment: the patient's symptoms have mildly improved after treatment, and as a result, I will admit patient. ED course: No obvious pneumonia on imaging. WBC normal. Lactate 2. Still tachycardic, sinus tachycardia, and still tachypneic. Will admit for COPD exacerbation and cover with antibiotics.. 02/11 10:51 Order name: BNP; Complete Time: 12:15 rn 02/11 10:51 Order name: Blood Culture Adult (2) rn 02/11 10:51 Order name: CBC with Diff; Complete Time: 11:44 rn 02/11 10:51 Order name: CMP; Complete Time: 12:15 rn 02/11 10:51 Order name: Lactate w/ 2H reflex if indic.; Complete Time: 12:08 rn 02/11 10:51 Order name: Protime (+inr); Complete Time: 11:44 rn 02/11 10:51 Order name: Ptt, Activated; Complete Time: 11:44 rn 02/11 10:51 Order name: Troponin HS; Complete Time: 12:15 rn 02/11 10:51 Order name: UA Rfx Harvey Cult if indicated; Complete Time: 12:15 rn 02/11 10:52 Order name: COVID-19 Ag + Flu A+B Ag; Complete Time: 11:44 rn 02/11 10:51 Order name: Chest Single View XRAY; Complete Time: 12:08 rn 02/11 10:51 Order name: Accucheck; Complete Time: 11:28 rn 02/11 10:51 Order name: Cardiac monitoring; Complete Time: 11:28 rn 02/11 10:51 Order name: EKG - Nurse/Tech; Complete Time: 11:00 rn 02/11 10:51 Order name: IV Saline Lock - Large Bore; Complete Time: 11:28 rn 02/11 10:51 Order name: Labs collected and sent; Complete Time: 11:28 rn 02/11 10:51 Order name: O2 Per Protocol; Complete Time: 10:58 rn 02/11 10:51 Order name: O2 Sat Monitoring; Complete Time: 10:58 rn 02/11 10:51 Order name: Vital Signs; Complete Time: 10:58 rn EC:14 Rate is 127 beats/min. Rhythm is regular. QRS [place] is Normal. CO interval is normal. rn QRS interval is normal. QT interval is normal. No Q waves. T waves are Normal. No ST changes noted. Clinical impression: Sinus tachycardia. Interpreted by me. Reviewed by me. Administered Medications: 10:53 CANCELLED (Duplicate Order): levalbuterol0.63 mg Inhalation once rn 12:00 Drug: Levalbuterol Inhalation 1.25 mg Inhalation once Route: Inhalation; ph 14:37 Follow up: Response: No adverse reaction ph 12:48 Drug: MethylPrednisoLONE IVP 125 mg IVP once Route: IVP; Site: left forearm; ph 14:36 Follow up: Response: No adverse reaction ph 12:48 Drug: Ipratropium Inhalation Aerosol 0.5 mg Inhalation once Route: Inhalation; ph 14:36 Follow up: Response: No adverse reaction ph 12:48 Drug: Zithromax IVPB 500 mg IVPB once over 1 hrs; mix in 250 mL NS Route: IVPB; Infused ph Over: 1 hrs; Site: left forearm; 13:50 Follow up: Response: No adverse reaction; IV Status: Completed infusion ph Disposition Summary: 02/11/25 12:21 Hospitalization Ordered Notes: Location: Telemetry/MedSurg (observation) rn Condition: Stable rn Problem: new rn Symptoms: have improved rn Bed/Room Type: Standard rn Hospitalization Status: Inpatient Admission(02/11/25 12:43) rn Provider: Paul Palmer(02/11/25 12:43) rn Room Assignment: [facility](02/11/25 13:26) em1 Diagnosis - COPD/ Chronic obstructive pulmonary disease with (acute) exacerbation rn - Dyspnea, unspecified rn - Tachycardia, unspecified rn Forms: - Medication Reconciliation Form rn - SBAR form rn - Leadership Thank You Letter epidemiology intern time excluding procedures: 12:19 Critical care time: Bedside Care: 30 minutes, Consultation: 5 minutes. Total time: 35 rn minutes Signatures: Dispatcher [employer] EDMS Sanchez Kraft MD MD rn Martinez, Eric em1 Chiara Toussaint RN RN ph Corrections: (The following items were deleted from the chart) 10:52 10:52 PROBNP+C.LAB.BRZ ordered. EDMS EDMS 10:52 10:52 BLOOD CULTURE*+BA.LAB.BRZ ordered. EDMS EDMS 10:52 10:52 CBC+H.LAB.BRZ ordered. EDMS EDMS 10:52 10:52 COMPREHENSIVE METABOLIC PANEL+C.LAB.BRZ ordered. EDMS EDMS 10:52 10:52 LACTATE+C.LAB.BRZ ordered. EDMS EDMS 10:52 10:52 PROTIME (+INR)+COAG.LAB.BRZ ordered. EDMS EDMS 10:52 10:52 PTT, ACTIVATED+COAG.LAB.BRZ ordered. EDMS EDMS 10:52 10:52 Troponin High Sensitivity+C.LAB.BRZ ordered. EDMS EDMS 10:52 UA Rfx Harvey Cult if indicated+U.LAB.BRZ ordered. EDMS EDMS : 10:52 Chest Single View+RAD.RAD.BRZ ordered. EDMS EDMS 10:53 Levalbuterol Inhalation 0.63 mg Inhalation once ordered. rn rn 12:21 Observation rn rn 12:21 Romario Jean-Baptiste rn rn 13: 12:21 rn em1
--- NOTE | 2025-02-11 12:21 | ER ---
Nurse's Notes [facility] Name: Patricia Case Age: 69 yrs Sex: Female : 1955 Arrival Date: 02/11/2025 Time: 10:45 Bed 18 Private MD: Diagnosis: COPD/ Chronic obstructive pulmonary disease with (acute) exacerbation;Dyspnea, unspecified;Tachycardia, unspecified Presentation: 02/11 10:53 Chief complaint: EMS states: EMS called for high heart rate, pt initially found with HR ph 160s, after 200 mL NS decreased to 120s, other VSS, reports feeling weak and tired for approx 4 days, hx of end stage COPD. Coronavirus screen: Vaccine status: Patient reports being unvaccinated. Ebola Screen: No symptoms or risks identified at this time. Initial Sepsis Screen: Does the patient meet any 2 criteria? No. Patient's initial sepsis screen is negative. Does the patient have a suspected source of infection? No. Patient's initial sepsis screen is negative. Risk Assessment: Do you want to hurt yourself or someone else? Patient reports no desire to harm self or others. Onset of symptoms was February 11, 2025. 10:53 Method Of Arrival: EMS: [facility] ph 10:53 Acuity: ELSA 2 ph Historical: - Allergies: 10:56 PENICILLINS (rash); ph - PMHx: 10:56 breast cancer; CHF; COPD; Hypertensive disorder; Mycobacterium Avium; Pneumonia; Right ph kidney cyst; - PSHx: 10:56 Appendectomy; Thomas rotator cuff; cataracts; Cholecystectomy; defibrillator; Elbow; ph hysterectomy; Right arm lumpectomy; right mastectomy; Tonsillectomy; - Immunization history:: Adult Immunizations unknown. - Infectious Disease History:: Denies. - Family history:: not pertinent. - Hospitalizations: : No recent hospitalization is reported. Screenin:28 [facility] ED Fall Risk Assessment (Adult) History of falling in the last 3 months, ph including since admission No falls in past 3 months (0 pts) Confusion or Disorientation No (0 pts) Intoxicated or Sedated No (0 pts) Impaired Gait No (0 pts) Mobility Assist Device Used Yes (1 pt) Altered Elimination Yes (1 pt) Score/Fall Risk Level 0 - 2 = Low Risk Oriented to surroundings, Maintained a safe environment, Hourly rounding (assess needs \T\ fall precautionary measures) done, Used ambulatory aids as needed (educated on \T\ assisted with). Abuse screen: Denies threats or abuse. Denies injuries from another. Nutritional screening: No deficits noted. Tuberculosis screening: No symptoms or risk factors identified. Assessment: 11:54 General: Appears in no apparent distress. comfortable, Behavior is calm, cooperative. ph Pain: Denies pain. Neuro: Level of Consciousness is awake, alert, obeys commands, Oriented to person, place, time, situation. Cardiovascular: Capillary refill < 3 seconds in bilateral fingers Patient's skin is warm and dry. Rhythm is sinus rhythm. Respiratory: Airway is patent Respiratory effort is even, labored, Respiratory pattern is regular. GI: No signs and/or symptoms were reported involving the gastrointestinal system. Derm: Skin is pink, warm \T\ dry. Musculoskeletal: Circulation, motion, and sensation intact. Range of motion: intact in all extremities. 13:55 Reassessment: Report faxed to 4th floor. ph Vital Signs: 10:53 BP 118 / 54; Pulse 128; Resp 22; Temp 98.8(O); Pulse Ox 98% on 3 lpm NC; Weight 55.34 ph kg; Height 5 ft. 4 in. ; 11:53 BP 116 / 71; Pulse 111; Resp 21; Pulse Ox 100% on Nebulizer Mask; ph 13:03 BP 108 / 56; Pulse 119; Resp 16; Pulse Ox 99% on 3 lpm NC; ph 13:50 BP 102 / 67; Pulse 109; Resp 19; Temp 98.4; Pulse Ox 98% on 3 lpm NC; ph 14:37 BP 109 / 62; Pulse 108; Resp 18; Pulse Ox 98% on 3 lpm NC; ph 10:53 Body Mass Index 20.94 (55.34 kg, 162.56 cm) ph Vitals: 11:53 Cardiac Rhythm Assessment Sinus tach. ph ED Course: 10:47 Patient arrived in ED. em1 10:50 Sanchez Kraft MD is Attending Physician. rn 10:53 Chiara Toussaint RN is Primary Nurse. ph 10:56 Triage completed. ph 10:57 Arm band placed on Patient placed in an exam room, on a stretcher, on oxygen, on ph cardiac cath lab manager, on pulse oximetry. 11:30 Chest Single View XRAY In Process Unspecified. EDMS 11:36 Initial lab(s) drawn, by me, sent to lab. First set of blood cultures drawn. Inserted em1 saline lock: 22 gauge in left forearm, using aseptic technique. Blood collected. Flushed with 10 mL NS. 11:42 Blood Culture Adult (2) Sent. em1 11:42 BNP Sent. em1 11:42 Lactate w/ 2H reflex if indic. Sent. em1 11:42 CMP Sent. em1 11:42 Troponin HS Sent. em1 11:42 UA Rfx Harvey Cult if indicated Sent. em1 11:47 Missed attempt(s): 22 gauge in left forearm. Bleeding controlled, band aid applied, pm7 catheter tip intact. purewick applied to suction cannister. 11:58 Patient has correct armband on for positive identification. Bed in low position. Side ph rails up X2. cardiac monitor technician on. Pulse ox on. NIBP on. Door closed. Noise minimized. Warm blanket given. Pillow given. 12:20 Romario Jean-Baptiste MD is Hospitalizing Provider. rn 12:43 Paul Palmer MD is Hospitalizing Provider. rn 13:56 No provider procedures requiring assistance completed. Patient admitted, IV remains in ph place. Administered Medications: 10:53 CANCELLED (Duplicate Order): levalbuterol0.63 mg Inhalation once rn 12:00 Drug: Levalbuterol Inhalation 1.25 mg Inhalation once Route: Inhalation; ph 14:37 Follow up: Response: No adverse reaction ph 12:48 Drug: MethylPrednisoLONE IVP 125 mg IVP once Route: IVP; Site: left forearm; ph 14:36 Follow up: Response: No adverse reaction ph 12:48 Drug: Ipratropium Inhalation Aerosol 0.5 mg Inhalation once Route: Inhalation; ph 14:36 Follow up: Response: No adverse reaction ph 12:48 Drug: Zithromax IVPB 500 mg IVPB once over 1 hrs; mix in 250 mL NS Route: IVPB; Infused ph Over: 1 hrs; Site: left forearm; 13:50 Follow up: Response: No adverse reaction; IV Status: Completed infusion ph Medication: 11:29 VIS not applicable for this client. ph Outcome: 12:21 Decision to Hospitalize by Provider. rn 14:37 Admitted to Med/surg accompanied by tech, via wheelchair, with oxygen, ph 14:37 Condition: stable 14:37 Instructed on the need for admit, 14:51 Patient left the ED. ph Signatures: Dispatcher [employer] EDSanchez Fournier MD MD rn Martinez, Eric em1 Chiara Toussaint RN RN ph Mills, Paige pm7
[2025-02-11] MEDS ORDERED: AZITHROMYCIN 500 MG INJ IVPB ONE (12:31)
[2025-02-11] MEDS ORDERED: METHYLPREDNISOLONE 125 MG INJ ONE (12:31)
[2025-02-11] MEDS ORDERED: NA CHLORIDE 0.9% 250 ML ONE (12:32)
[2025-02-11] MEDS ORDERED: ACETAMINOPHEN 500 MG TAB PO PRN (15:03)
[2025-02-11] MEDS ORDERED: ONDANSETRON 4 MG/2 ML VIAL IV PRN (15:03)
[2025-02-11 15:26] VITALS: BMI 20.9
[2025-02-11] MEDS: METHYLPREDNISOLONE 40 MG INJ IV SCH (16:51)
[2025-02-12 05:38] LABS: Absolute Lymphocytes (CBC) 0.3 K/uL (0.7-4.9); Hematocrit 30.3 % (36.0-45.0); Hemoglobin 9.8 g/dL (12.0-15.0); MCH 27.2 pg (27.0-35.0); MCHC 32.3 g/dL (32.0-36.0); MCV 84.1 fL (80-100); MPV 8.5 fL (7.6-11.3); Nucleated RBC Absolute Count 0.0 (0-0); Nucleated Red Blood Cells % 0.2 % (0-0); RBC Red Blood Cell Count 3.61 M/uL (3.86-4.86); White Blood Count 5.10 thou/uL (4.3-10.9)
[2025-02-12 06:01] LABS: Anion Gap 3.2 mEq/L (5.0-15.0); BUN Blood Urea Nitrogen 14.0 mg/dL (7-18); Glucose Level 153.0 mg/dL (74-106); NT PRO-BNP 1309.0 pg/mL (<125); Potassium 4.2 mEq/L (3.5-5.1)
[2025-02-12 08:28] LABS: Anisocytosis 1+; Blood Morphology Comment NOTED (NOT SEEN); Differential Total Cells Count 100; Platelets, Giant FEW PRESENT; Segmented Neutrophils 78 % (40-80)
[2025-02-12 08:29] LABS: Ovalocytes SLIGHT
[2025-02-12] MEDS: HOME MED 1 EA UNK (Fluticasone/Umeclidin/Vilanter [Trelegy Ellipta 100-62.5-25] Blst.W.Dev IH SCH (09:00)
[2025-02-12] MEDS: IPRATROPIUM BROM 0.5MG/2.5ML NEB PRN (09:22)
[2025-02-12] MEDS: AZITHROMYCIN IV 250 MG in NA CHLORIDE 0.9% 250 ML IVPB SCH (09:40)
[2025-02-12] MEDS: ASPIRIN EC 81 MG TAB PO SCH (09:41)
[2025-02-12] MEDS: ROFLUMILAST 500 MCG TABLET PO SCH (09:41)
[2025-02-12] MEDS: POTASSIUM CL SA 10 MEQ TAB PO SCH (09:41)
[2025-02-12] MEDS: FUROSEMIDE 20 MG TABLET PO SCH (09:41)
[2025-02-12] MEDS: METOPROLOL XL 25 MG TAB PO SCH (09:41)
[2025-02-12] MEDS: CLOPIDOGREL 75 MG TABLET PO SCH (09:41)
[2025-02-12] MEDS: LORATADINE 10 MG TAB PO SCH (09:42)
[2025-02-12] MEDS: COLLAGENASE 30 GM OINTMENT TOP SCH (12:00)
--- NOTE | 2025-02-12 12:28 | CON ---
Date of Consultation: 02/12/2025 Reason For Consultation: Nonhealing wound, right chest. History Of Present Illness: The patient is a 69-year-old female who comes in with weakness and malai se. Was diagnosed with exacerbations of her COPD and on evaluation was found to have a wound on the right breast at the left lumpectomy scar site. The patient had a lumpectomy with axillary dissection and radiation treatment approximately 19 years ago. She states that 2 weeks ago, something a box fe ll on her right chest and opened the wound and there is no history of fevers, chills, or purulent dis charge from the site, but it is nonhealing. No sore throat or runny nose. She does have a cough. N o fevers or chills. Review of Systems: Otherwise, unremarkable. Past Medical History: CHF, COPD, right breast cancer, hypertension, history of mycobacterium avium, and kidney cyst. Past Surgical History: Appendectomy, bilateral rotator cuff surgery, cataract, cholecystectomy, defi brillator, elbow surgery, hysterectomy, right breast lumpectomy, and tonsillectomy. Allergies: INCLUDE PENICILLIN. Social History: The patient does not currently smoke or drink alcohol. Family History: Noncontributory. Physical Examination: Vital Signs: Stable. She is afebrile. General: Awake and alert. Head and Neck: No masses. Chest: Clear. Heart: S1, S2. Abdomen: Soft. Extremities: Neurovascularly intact. Right anterior chest with previous lumpectomy scar site. Ther e is approximately a 2.5 cm x 1 cm open wound with fibrin present. There is no surrounding erythema, warmth, or edema. There is no purulent discharge. Laboratory Data: Reviewed. Assessment: Right chest/breast wound, nonhealing, secondary to previous surgery, and history of radi ation therapy. Recommendations: Nutritional optimization, vitamins, Santyl dressing. Can follow up in the [facility]. We will try the traditional wound care for 4 weeks and if that does not help then natasha ent may qualify for hyperbaric oxygen therapy. The patient will follow up with us in [facility] in the next week or so after discharge. JOSIE/YAMILEXL Voice ID: [id number] Report ID: [id number]
[2025-02-12] MEDS: ROSUVASTATIN 5 MG TAB PO SCH (21:25)
[2025-02-12] MEDS: ALPRAZOLAM 0.25 MG TABLET PO PRN (21:36)
--- NOTE | 2025-02-13 07:10 | HP ---
Date of Admission: 02/12/2025 Chief Complaint: Cough, congestion, fever, and feeling weak. History Of Present Illness: This is a 69-year-old pleasant female patient with multiple chronic gordy rbidities, was doing fine in her normal usual state of health until yesterday, she started to feel we ak and had some low-grade fever associated with cough and chest congestion. The patient says her hea rt rate at home just with walking from room to room had gone up to anywhere between 150 to 179. With all this, she came into emergency room and after she was evaluated in ER, she was admitted to [facility] with acute bronchitis and acute exacerbation of COPD. Physical Examination: Vital Signs: Height 5 feet 4 inches, weight 122 pounds. Temperature 97.2, pulse 97, respiratory rat e 20, blood pressure 92/61 with oxygen saturation 100%. General: Awake, alert, oriented, not in distress. HEENT: Head atraumatic, normocephalic. Conjunctivae nonerythematous. Sclerae white. Mouth, no thr ush or edema noted. Ears/Nose, no mass, lesion, discharge noted. Neck: Supple. No JVD, lymph nodes, bruit, thyromegaly noted. Lungs: Bilateral good equal air entry. Clear to auscultation. No rhonchi. No rales. Heart: Normal heart sounds, no murmur or gallop. Abdomen: Soft, bowel sounds normal. No guarding, rigidity, tenderness, mass, hepatosplenomegaly, dis tention, or bruit noted. Extremities: No leg edema. No calf tenderness. Skin: No rash, ulcer, cellulitis. Lymphatics: No lymph node enlargement in neck, supraclavicular, infraclavicular region. Neuro: No focal neurological deficit. Chest: Unremarkable. External Genitalia: Deferred. Rectal: Deferred. Laboratory Data: Yesterday, WBC 8.9, hemoglobin 9.3, platelets 204. This morning, WBC 5.1, hemoglob in 9.8, platelets 213. For chemistry yesterday, sodium 140, potassium 3.8, chloride 100, bicarb 34, BUN 8, creatinine 0.56, glucose 153, lactic acid 2. Liver function tests unremarkable. Troponin 23. 5. ProBNP 899. Today, sodium 141, potassium 4.2, chloride 103, bicarb 39, BUN 14, creatinine 0.34, glucose 153. ProBNP 1309. Urinalysis normal. Influenza A, B, and COVID-19 test negative. Chest x- ray, no acute cardiopulmonary changes. Impression: 1. Acute exacerbation of COPD. 2. Anemia, chronic, unspecified. 3. Chronic respiratory failure with hypoxia, steroid and oxygen dependent. 4. Hypertension. 5. Hyperlipidemia. 6. Coronary artery disease. 7. Palpitation. 8. Chronic systolic and diastolic heart failure. 9. Gastroesophageal reflux disease. 10. Right breast cancer. 11. Lumbar spondylosis. 12. Osteoporosis. 13. Vitamin D deficiency. Plan: We will go ahead and admit the patient to hospital for further evaluation and management of th is problem. The patient is appropriate for inpatient and is expected to spend 2 midnights in [facility]. For her acute exacerbation of COPD, we will treat it with oxygen, nebulizer treatment, IV steroid , and empiric antibiotic. For chronic respiratory failure with hypoxia, we will continue her oxygen replacement therapy. The patient is on metoprolol for hypertension and her palpitation problem, we w ill continue that, no need for further intervention. The patient is on diuretic therapy for her hear t failure which is combined systolic and diastolic in nature, we will continue current medical manage ment, no need for further intervention on it. For hyperlipidemia, continue statin therapy and it mahendra l not require any further intervention. Total time spent 65 minutes including review of last office visit record from 12/25/2024, communicati on with emergency room physician, review of emergency room visit record, and performing today's evaluation and management. KAYLEY/NAYA Voice ID: [id number]
[2025-02-13] MEDS: ALBUTEROL 2.5 MG/3 ML NEB SOL NEB PRN (13:48)
[2025-02-13] MEDS: BENZONATATE 100 MG CAP PO PRN (21:14)
--- NOTE | 2025-02-14 01:15 | PN ---
Date of Progress Note: 02/13/2025 Subjective: The patient was seen this morning for followup. No new complaints or problems reported by the patient. Overall, she was feeling better than yesterday, but not back to her baseline. Objective: Vital Signs: Reviewed. HEENT: Unremarkable. Lungs: Bilateral good equal air entry. Presence of some wheezing noted in lower lung jolley. Not u sing accessory muscles of respiration. Heart: Sounds normal. Abdomen: Soft. Bowel sounds normal. No guarding, rigidity, tenderness, distention. Extremities: No leg edema. Impression: 1. Acute exacerbation of chronic obstructive pulmonary disease. 2. Hypertension. 3. Hyperlipidemia. Plan: We will go ahead and continue current medication. Continue current oxygen nebulizer treatment , antibiotic, and steroids. Ambulation was encouraged. I will see her tomorrow for followup. Possi ble discharge to go home tomorrow. KAYLEY/MODL Voice ID: [id number] Report ID: [id number]
[2025-02-14 12:09] VITALS: BP 111/66; TEMP 97.8
[2025-02-14 13:54] VITALS: O2SAT 98
--- NOTE | 2025-02-14 20:15 | DS ---
Date of Discharge: 02/14/2025 Disposition: Discharged to go home. Physical Examination: HEENT: Unremarkable. Lungs: Clear to auscultation. Heart: Sounds normal. Abdomen: Soft. Bowel sounds normal. No guarding, rigidity, tenderness, distention. Extremities: No leg edema. Discharge Medications And Instructions: 1. . 2. . Discharge Diagnoses: 1. . 2. . Laboratory Data: , . Hospital Course: This 69-year-old pleasant female patient admitted to the hospital with shortness of breath complaints. Please see dictated H and P for more information. The patient was evaluated in the ER and was admitted to the hospital with acute exacerbation of COPD. She was given oxygen, IV st eroid, and IV antibiotics. Overall, her condition improved and today we were able to discharge her t o go home in improved and stable condition. KAYLEY/MODL Voice ID: [id number] Report ID: [id number]
== END 2025-02-14 12:45 | disposition home or self-care (01) | DRG 191 ==
LOC: ER 10:45 → ERHOLD 13:06 → 4TH 14:31
PROVIDERS: ADMIT Internal Medicine; ATTEND Internal Medicine
DX: J44.1 Chronic obstructive pulmonary disease with (acute) exacerbation (principal); I50.42 Chronic combined systolic (congestive) and diastolic (congestive) heart failure; J96.11 Chronic respiratory failure with hypoxia; J44.0 Chronic obstructive pulmonary disease with (acute) lower respiratory infection; I11.0 Hypertensive heart disease with heart failure; E78.5 Hyperlipidemia, unspecified; D64.9 Anemia, unspecified; E55.9 Vitamin D deficiency, unspecified; J20.9 Acute bronchitis, unspecified; M81.0 Age-related osteoporosis without current pathological fracture; M47.896 Other spondylosis, lumbar region; K21.9 Gastro-esophageal reflux disease without esophagitis; C50.911 Malignant neoplasm of unspecified site of right female breast; I25.10 Atherosclerotic heart disease of native coronary artery without angina pectoris; R00.0 Tachycardia, unspecified; Z88.0 Allergy status to penicillin; Z85.3 Personal history of malignant neoplasm of breast; Z11.52 Encounter for screening for COVID-19; Z90.11 Acquired absence of right breast and nipple; Z90.49 Acquired absence of other specified parts of digestive tract; Z90.710 Acquired absence of both cervix and uterus; Z95.810 Presence of automatic (implantable) cardiac defibrillator
CPT/HCPCS: 36415; 71045; 80048; 80053; 81001; 83605; 83880; 84484; 85025; 85610; 85730; 87040; 87428; 93005; 94640; 94760; 96365; 96375; 99285; J0456; J2919; J3590; J7050; J7613; J7614; J7644